=== PATIENT | female | born 1940 | race Caucasian/White ===

== ENCOUNTER 2017-06-01 10:18 | Outpatient (CLI) | payer MEDICARE | END 2017-06-01 10:19 | disposition EMS.NT | LOC: EMS 10:18 | PROVIDERS: ATTEND Surgery | DX: R55 Syncope and collapse (principal) ==

== ENCOUNTER 2020-12-01 12:06 | Outpatient (CLI) | payer MEDICARE ==
[2020-12-01 13:05] LABS: INR 3.5 (0.8-1.2); PT - PROTHROMBIN TIME 36.1 secs (9.9-12.6)
== END 2020-12-01 12:07 | disposition home or self-care (01) ==
LOC: LAB 12:06
PROVIDERS: ATTEND Internal Medicine Clinical Cardiac Electrophysiology
DX: I48.91 Unspecified atrial fibrillation (principal)
CPT/HCPCS: 36415; 85610

== ENCOUNTER 2020-12-03 19:05 | Outpatient (CLI) | payer MEDICARE | END 2020-12-03 19:06 | disposition EMS.NT | LOC: EMS 19:05 | DX: Z03.89 Encounter for observation for other suspected diseases and conditions ruled out (principal) ==

== ENCOUNTER 2020-12-06 13:56 | Outpatient (CLI) | payer MEDICARE ==
[2020-12-06 14:25] LABS: PT - PROTHROMBIN TIME 49.3 secs (9.9-12.6)
[2020-12-06 14:36] LABS: INR 4.9 (0.8-1.2)
== END 2020-12-06 13:57 | disposition home or self-care (01) ==
LOC: LAB 13:56
PROVIDERS: ATTEND Internal Medicine Clinical Cardiac Electrophysiology
DX: I48.91 Unspecified atrial fibrillation (principal)
CPT/HCPCS: 36415; 85610

== ENCOUNTER 2020-12-08 10:25 | Outpatient (CLI) | payer MEDICARE ==
[2020-12-08 10:46] LABS: INR 3.3 (0.8-1.2); PT - PROTHROMBIN TIME 34.4 secs (9.9-12.6)
== END 2020-12-08 10:26 | disposition home or self-care (01) ==
LOC: LAB 10:25
PROVIDERS: ATTEND Internal Medicine Clinical Cardiac Electrophysiology
DX: I48.91 Unspecified atrial fibrillation (principal)
CPT/HCPCS: 36415; 85610

== ENCOUNTER 2020-12-12 11:30 | Outpatient (CLI) | payer MEDICARE | END 2020-12-12 11:31 | disposition home or self-care (01) | LOC: LAB 11:30 | PROVIDERS: ATTEND Internal Medicine Clinical Cardiac Electrophysiology | DX: I48.91 Unspecified atrial fibrillation (principal) | CPT/HCPCS: 85610 ==

== ENCOUNTER 2020-12-18 10:37 | Outpatient (CLI) | payer MEDICARE ==
[2020-12-18 11:31] LABS: PT - PROTHROMBIN TIME 82.5 secs (9.9-12.6)
[2020-12-18 11:35] LABS: INR 8.4 (0.8-1.2)
== END 2020-12-18 10:38 | disposition home or self-care (01) ==
LOC: LAB 10:37
PROVIDERS: ATTEND Internal Medicine Clinical Cardiac Electrophysiology
DX: I48.91 Unspecified atrial fibrillation (principal)
CPT/HCPCS: 36415; 85610

== ENCOUNTER 2020-12-20 07:00 | Outpatient (CLI) | payer MEDICARE ==
[2020-12-20 09:23] LABS: INR 2.5 (0.8-1.2); PT - PROTHROMBIN TIME 26.4 secs (9.9-12.6)
== END 2020-12-20 23:59 | disposition home or self-care (01) ==
LOC: LAB 07:00
PROVIDERS: ATTEND Internal Medicine Clinical Cardiac Electrophysiology
DX: I48.91 Unspecified atrial fibrillation (principal)
CPT/HCPCS: 36415; 85610

== ENCOUNTER 2020-12-22 11:35 | Outpatient (CLI) | payer MEDICARE ==
[2020-12-22 12:04] LABS: BASOPHILS % (AUTO) 0.6 %; EOSINOPHILS # (AUTO) 0.1 10^3/uL (0.0-0.7); EOSINOPHILS % (AUTO) 1.2 %; HCT - HEMATOCRIT 28.9 % (37.0-47.0); HGB - HEMOGLOBIN 9.7 g/dL (12.0-16.0); LYMPHOCYTES # (AUTO) 0.6 10^3/uL (1.5-3.5); LYMPHOCYTES % (AUTO) 8.4 %; MEAN CORPUSCULAR HEMOGLOBIN 33.3 pg (27.0-31.0); MEAN CORPUSCULAR HGB CONC 33.6 g/dL (32.0-36.0); MEAN CORPUSCULAR VOLUME 99.3 fL (81.0-99.0); MEAN PLATELET VOLUME 8.8 fL (7.9-10.8); MONOCYTES # (AUTO) 0.7 10^3/uL (0.0-1.0); MONOCYTES % (AUTO) 9.2 %; NEUTROPHILS # (AUTO) 5.8 10^3/uL (1.5-6.6); NEUTROPHILS % (AUTO) 80.3 %; PLT - PLATELET COUNT 308 10^3/uL (130-450); RED BLOOD COUNT 2.91 10^6/uL (4.20-5.40); RED CELL DISTRIBUTION WIDTH 13.9 % (12.0-15.0); WHITE BLOOD COUNT 7.3 x10^3/uL (4.8-10.8)
[2020-12-22 12:12] LABS: CREATININE 1.6 mg/dL (0.4-1.0); INR 4.1 (0.8-1.2); PT - PROTHROMBIN TIME 41.5 secs (9.9-12.6)
== END 2020-12-22 11:36 | disposition home or self-care (01) ==
LOC: LAB 11:35
PROVIDERS: ATTEND Internal Medicine Clinical Cardiac Electrophysiology
DX: I48.21 Permanent atrial fibrillation (principal)
CPT/HCPCS: 36415; 82565; 85025; 85610

== ENCOUNTER 2021-02-17 19:12 | Emergency (ER) | payer MEDICARE ==
--- OUTSIDE RECORDS SUMMARY | 2021-02-17 19:19 | EXTERNAL MEDICAL SUMMARY RPT | Continuity of Care Document ---
:1940 Demographics Phone Unavailable Preferred Language Unknown Marital Status Unknown Oriental Orthodox Affiliation Unknown Race Unknown Ethnic Group Unknown Author Organization [place] Address [address] [phone] Phone Problems date description facility [id number] Shortness of Breath [facility] [id number] Fall [facility]
[2021-02-17 19:23] VITALS: BP 200/116
--- OUTSIDE RECORDS SUMMARY | 2021-02-17 19:46 | EXTERNAL MEDICAL SUMMARY RPT | Continuity of Care Document ---
:1940 Demographics Phone Unavailable Preferred Language Unknown Marital Status Unknown Yazdanism Affiliation Unknown Race Unknown Ethnic Group Unknown Author Organization [place] Address [address] [phone] Phone Problems date description facility [id number] Shortness of Breath [facility] [id number] Fall [facility]
[2021-02-17] MEDS ORDERED: OLANZapine ODT 5 MG TABLET TL ONE (19:50)
[2021-02-17 20:15] LABS: BASOPHILS % (AUTO) 0.8 %; EOSINOPHILS # (AUTO) 0.1 10^3/uL (0.0-0.7); EOSINOPHILS % (AUTO) 1.5 %; HCT - HEMATOCRIT 46.8 % (37.0-47.0); HGB - HEMOGLOBIN 15.7 g/dL (12.0-16.0); LYMPHOCYTES % (AUTO) 19.2 %; MEAN CORPUSCULAR HEMOGLOBIN 31.8 pg (27.0-31.0); MEAN CORPUSCULAR HGB CONC 33.5 g/dL (32.0-36.0); MEAN CORPUSCULAR VOLUME 94.7 fL (81.0-99.0); MEAN PLATELET VOLUME 9.4 fL (7.9-10.8); MONOCYTES # (AUTO) 0.5 10^3/uL (0.0-1.0); MONOCYTES % (AUTO) 8.5 %; NEUTROPHILS # (AUTO) 3.7 10^3/uL (1.5-6.6); NEUTROPHILS % (AUTO) 69.6 %; PLT - PLATELET COUNT 221 10^3/uL (130-450); RED BLOOD COUNT 4.94 10^6/uL (4.20-5.40); RED CELL DISTRIBUTION WIDTH 13.1 % (12.0-15.0); WHITE BLOOD COUNT 5.3 x10^3/uL (4.8-10.8)
--- NOTE | 2021-02-17 20:16 | ED Physician Documentation ---
History of Present Illness - Stated complaint Stated Complaint: ABNORMAL BEHAVIOR - Chief complaint Chief Complaint: Neuro - History obtained from History obtained from: Patient, Family - History of Present Illness Timing: Today Pain level max: 0 Pain level now: 0 - Additonal information Additional information: She has had a [id number] female with a history of Alzheimer's dementia presents to the emergency department by her for increasingly bizarre behavior over the past few days. He states that she has been crawling on the floor, trying to eat the remote control. He states that she recently had her Seroquel increased from 25 mg to 37.5 mg. She is not on any dementia medication. All injuring her left hand several weeks ago, no recent falls. No recent trauma. Nothing makes this better or worse. Review of Systems Unable to obtain: Dementia Constitutional: denies: Fever, Chills Cardiac: denies: Chest pain / pressure Respiratory: denies: Cough GI: denies: Vomiting, Diarrhea Musculoskeletal: denies: Neck pain, Back pain Neurologic: reports: Confused. denies: Headache, LOC PD PAST MEDICAL HISTORY - Past Medical History Neuro: Alzhiemer's, Dementia HEENT: Glaucoma - Past Surgical History Past Surgical History: Yes - Present Medications Home Medications: Ambulatory Orders Medication Instructions Recorded Confirmed Atorvastatin [Lipitor] 20 mg PO DAILY 04/09/14 02/17/21 Levothyroxine [Synthroid] 100 mcg PO DAILY 04/09/14 02/17/21 Losartan [Cozaar] 100 mg PO DAILY 04/09/14 02/17/21 Timolol 0.25% Ophth Drops 1 drops EACHEYE DAILY 04/09/14 02/17/21 [Timoptic 0.25% Ophth Drops] QUEtiapine [SEROquel] 37.5 mg PO DAILY 02/17/21 02/17/21 Warfarin [Coumadin] 2 mg PO DAILY 02/17/21 02/17/21 - Allergies Allergies/Adverse Reactions: Allergies Allergy/AdvReac Type Severity Reaction Status Date / Time Sulfa (Sulfonamide Allergy Cramps Verified 04/10/14 00:20 Antibiotics) - Social History Does the pt smoke?: No Smoking Status: Never smoker Does the pt drink ETOH?: No Does the pt have substance abuse?: No PD ED PE NORMAL - Vitals Vital signs reviewed: Yes - General General: No acute distress, Well developed/nourished, Other (alert, oriented to person only) - HEENT HEENT: Atraumatic, PERRL, Moist mucous membranes - Neck Neck: Supple, no meningeal sign - Cardiac Cardiac: RRR, Strong equal pulses - Respiratory Respiratory: No respiratory distress, Clear bilaterally - Abdomen Abdomen: Soft, Non tender, Non distended - Derm Derm: Warm and dry - Extremities Extremities: Other (mild swelling and bruising to the B hands, L>R. NVI. ) - Neuro Neuro: No motor deficit, No sensory deficit, Normal speech - Psych Psych: Normal mood, Normal affect Results - Vitals Vitals: Vital Signs - 24 hr 02/17/21 19:19 Temperature 36.5 C Heart Rate 101 H Respiratory 24 Rate Blood Pressure 200/116 H O2 Saturation 99 Oxygen O2 Source Room air - Labs Labs: Laboratory Tests 02/17/21 02/17/21 02/17/21 20:08 20:08 20:08 WBC 5.3 RBC 4.94 Hgb 15.7 Hct 46.8 MCV 94.7 MCH 31.8 H MCHC 33.5 RDW 13.1 Plt Count 221 MPV 9.4 Neut # (Auto) 3.7 Lymph # (Auto) 1.0 L [place] # (Auto) 0.5 Eos # (Auto) 0.1 Baso # (Auto) 0.0 Absolute Nucleated RBC 0.00 Nucleated RBC % 0.0 PT INR Sodium 140 Potassium 3.2 L Chloride 102 Carbon Dioxide 28 Anion Gap 10.0 BUN 39 H Creatinine 1.8 H Estimated GFR (MDRD) 27 L Glucose 122 H Calcium 9.3 Total Bilirubin 1.2 H AST 24 ALT 15 Alkaline Phosphatase 68 Total Protein 7.8 Albumin 4.8 Globulin 3.0 Albumin/Globulin Ratio 1.6 Lipase 59 H TSH 19.56 H Salicylates < 6.0 Acetaminophen < 10 L Ethyl Alcohol < 5.0 02/17/21 20:08 WBC RBC Hgb Hct MCV MCH MCHC RDW Plt Count MPV Neut # (Auto) Lymph # (Auto) [place] # (Auto) Eos # (Auto) Baso # (Auto) Absolute Nucleated RBC Nucleated RBC % PT 12.9 H INR 1.2 Sodium Potassium Chloride Carbon Dioxide Anion Gap BUN Creatinine Estimated GFR (MDRD) Glucose Calcium Total Bilirubin AST ALT Alkaline Phosphatase Total Protein Albumin Globulin Albumin/Globulin Ratio Lipase TSH Salicylates Acetaminophen Ethyl Alcohol PD MEDICAL DECISION MAKING - ED course Complexity details: reviewed results, considered differential, d/w family ED course: No significant lab abnormalities. While we are waiting a urine sample, the decided he did not want any further testing or to stay in the emergency department any longer and wanted to take her home. He will follow up with her doctor on Friday. I informed him that it could be dangerous to wait if she does have a urinary tract infection as she could become worse and even septic. He states he will return if she worsens. Signed out AMA. This document was made in part using voice recognition software. While efforts are made to proofread this document, sound alike and grammatical errors may occur. Departure - Departure Disposition: 07 Against Medical Advice Clinical Impression: Dementia Qualifiers: Dementia type: Alzheimer's Alzheimer's disease onset: unspecified onset Dementia behavioral disturbance: with behavioral disturbance Qualified Code(s): G30.9 - Alzheimer's disease, unspecified; F02.81 - Dementia in other diseases classified elsewhere with behavioral disturbance Condition: Stable
[2021-02-17] MEDS ORDERED: QUEtiapine 25 MG TABLET PO STA (20:28)
[2021-02-17 20:34] LABS: ACETAMINOPHEN < 10 ug/mL (10-30); ALBUMIN 4.8 g/dL (3.2-5.5); ALBUMIN/GLOBULIN RATIO 1.6 (1.0-2.2); ALKALINE PHOSPHATASE 68 IU/L (42-121); ALT ALANINE AMINOTRANSFERASE 15 IU/L (10-60); AST ASPARTATE AMINOTRANSFERASE 24 IU/L (10-42); BILIRUBIN,TOTAL 1.2 mg/dL (0.2-1.0); BUN - BLOOD UREA NITROGEN 39 mg/dL (6-20); CALCIUM 9.3 mg/dL (8.5-10.3); CARBON DIOXIDE - CO2 28 mmol/L (21-32); CHLORIDE 102 mmol/L (101-111); CREATININE 1.8 mg/dL (0.4-1.0); ETOH - ETHANOL < 5.0 mg/dL; GFR - MDRD 27 (>89); GLUCOSE 122 mg/dL (70-100); LIPASE 59 U/L (22-51); POTASSIUM 3.2 mmol/L (3.5-5.0); SALICYLATE < 6.0 mg/dL; SODIUM 140 mmol/L (135-145); TOTAL PROTEIN 7.8 g/dL (6.7-8.2)
[2021-02-17 21:01] LABS: INR 1.2 (0.8-1.2); PT - PROTHROMBIN TIME 12.9 secs (9.9-12.6)
== END 2021-02-17 21:48 | disposition left against medical advice (07) ==
LOC: ED 19:12
DX: Z53.29 Procedure and treatment not carried out because of patient's decision for other reasons (principal); G30.9 Alzheimer's disease, unspecified; F02.81 Dementia in other diseases classified elsewhere, unspecified severity, with behavioral disturbance
CPT/HCPCS: 36415; 80053; 80307; 83690; 84443; 85025; 85610; 99283; 99284; A9270; G0480; 80320; 80329

== ENCOUNTER 2021-02-18 10:54 | Outpatient (CLI) | payer MEDICARE | END 2021-02-18 10:55 | disposition critical access hospital (66) | LOC: EMS 10:54 | DX: R40.4 Transient alteration of awareness (principal) | CPT/HCPCS: A0425; A0429 ==

== ENCOUNTER 2021-02-18 11:05 | Emergency (ER) | payer MEDICARE ==
--- OUTSIDE RECORDS SUMMARY | 2021-02-18 11:14 | EXTERNAL MEDICAL SUMMARY RPT | Continuity of Care Document ---
:1940 Demographics Phone Unavailable Preferred Language Unknown Marital Status Unknown Taoist Affiliation Unknown Race Unknown Ethnic Group Unknown Author Organization [place] Address [address] [phone] Phone Problems date description facility [id number] Shortness of Breath [facility] [id number] Fall [facility]
--- NOTE | 2021-02-18 11:15 | ED Physician Documentation ---
PD HPI ALTERED MENTAL STATUS - Stated complaint Stated Complaint: CONFUSION - History obtained from History obtained from: Patient, EMS - History of Present Illness Timing - onset: How many days ago ( states the patient seems more agita david and confused. He been having agitation and had Seroquel dose increased from 25 to 37.5 mg. She is now somewhat confused. Has also been getting up to bathroom for urination with small output. also with some incontinence the past several days, new for her) Timing - details: Gradual onset Quality / character: Confused Associated symptoms: Urinary sx, Other (getting up to bathroom herself often and having some falls. She fell overnight and hurt shoulder, heard her fall and she was awake when got to her, so not apparent LOC.). No: Fever, Headache, Stiff neck, Dyspnea, Cough, NVD Contributing factors: Recent injury (fell during night with shoulder injury.). No: Anticoagulated (previously but off the coumadin for few months.), Diabetic, Recent illness Basline status: Disoriented, Walker Similar symptoms before: Has not had sx before Recently seen: Clinic, Emergency Dept (yesterday for the confusion after increased med dose. left with patient prior to getting urine sample for UA. Declined cath urine specimen.) Review of Systems Unable to obtain: Confused, Dementia, Other (info from .) Constitutional: denies: Fever Nose: denies: Congestion Cardiac: denies: Chest pain / pressure Respiratory: denies: Dyspnea, Cough GI: denies: Vomiting, Diarrhea : reports: Frequency. denies: Discharge Skin: denies: Rash, Abrasion (s), Laceration (s) Musculoskeletal: reports: Extremity pain (right shoulder this morning). denies: Neck pain, Back pain Neurologic: reports: Generalized weakness, Confused. 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 : Other HEENT: Glaucoma Derm: None - Past Surgical History Past Surgical History: Yes HEENT: Other - Present Medications Home Medications: Ambulatory Orders Medication Instructions Recorded Confirmed Atorvastatin [Lipitor] 20 mg PO DAILY 04/09/14 02/18/21 Levothyroxine [Synthroid] 100 mcg PO DAILY 04/09/14 02/18/21 Losartan [Cozaar] 100 mg PO DAILY 04/09/14 02/18/21 Timolol 0.25% Ophth Drops 1 drops EACHEYE DAILY 04/09/14 02/18/21 [Timoptic 0.25% Ophth Drops] Oxybutynin [Ditropan] 5 mg PO QPM 10 Days #10 tablet 02/18/21 QUEtiapine [SEROquel] 1 tab PO DAILY 02/18/21 02/18/21 cephALEXin [Keflex] 500 mg PO TID 5 Days #15 cap 02/18/21 - Allergies Allergies/Adverse Reactions: Allergies Allergy/AdvReac Type Severity Reaction Status Date / Time Sulfa (Sulfonamide Allergy Cramps Verified 02/18/21 11:13 Antibiotics) - Social History Does the pt smoke?: No Smoking Status: Never smoker Does the pt drink ETOH?: No Does the pt have substance abuse?: No - POLST Patient has POLST: No PD ED PE NORMAL - Vitals Vital signs reviewed: Yes - General General: Alert and oriented X 3, No acute distress, Well developed/nourished - HEENT HEENT: Atraumatic, Pharynx benign. No: Moist mucous membranes - Neck Neck: Supple, no meningeal sign, No adenopathy - Cardiac Cardiac: RRR, No murmur - Respiratory Respiratory: Clear bilaterally - Abdomen Abdomen: Soft, Non tender - Back Back: No spinal TTP - Derm Derm: Normal color, Warm and dry - Extremities Extremities: Other (right shoulder tender at distal clavicle. No gross deformity. ) - Neuro Neuro: Alert and oriented X 3, No motor deficit, Normal speech Results - Vitals Vitals: Vital Signs - 24 hr 02/18/21 02/18/21 02/18/21 11:09 11:21 11:32 Temperature 36.6 C Heart Rate 74 77 61 Respiratory 18 16 16 Rate Blood Pressure 154/111 H 141/92 H 134/98 H O2 Saturation 97 100 100 02/18/21 02/18/21 02/18/21 12:19 12:30 13:00 Temperature Heart Rate 60 62 67 Respiratory 14 14 12 Rate Blood Pressure 155/100 H 165/121 H 155/95 H O2 Saturation 100 100 02/18/21 02/18/21 13:30 15:01 Temperature Heart Rate 66 66 Respiratory 20 18 Rate Blood Pressure 170/153 H 175/84 H O2 Saturation 100 100 Oxygen O2 Source Room air - Labs Labs: Laboratory Tests 02/18/21 02/18/21 02/18/21 12:57 12:57 12:57 WBC 7.6 RBC 4.30 Hgb 13.8 Hct 41.0 MCV 95.3 MCH 32.1 H MCHC 33.7 RDW 13.2 Plt Count 181 MPV 9.8 Neut # (Auto) 6.3 Lymph # (Auto) 0.7 L [place] # (Auto) 0.6 Eos # (Auto) 0.0 Baso # (Auto) 0.0 Absolute Nucleated RBC 0.00 Nucleated RBC % 0.0 Sodium 139 Potassium 3.3 L Chloride 105 Carbon Dioxide 25 Anion Gap 9.0 BUN 29 H Creatinine 1.5 H Estimated GFR (MDRD) 33 L Glucose 104 H Calcium 8.5 Total Bilirubin 1.5 H AST 21 ALT 12 Alkaline Phosphatase 54 Total Protein 6.5 L Albumin 3.8 Globulin 2.7 Albumin/Globulin Ratio 1.4 Lipase 32 Free T4 1.28 Free T3 pg/mL 2.80 - Rads (name of study) head CT Radiology: Prelim report reviewed (no ICH, no acute process), See rad report chest xray Radiology: Prelim report reviewed (no infiltrates nor acute process), See rad report right shoulder Radiology: Prelim report reviewed (distal clavicle fracture. No dislocation. ), See rad report PD MEDICAL DECISION MAKING - ED course Complexity details: re-evaluated patient (answering questions. Seem calm and cooperative. Sitting up in bed. ), considered differential (the patient was answering questions okay. She did not want catheter for urine test. Did not wqnt to go to the bathroom. Had some mild incontinence. PureWick was placed to get some urine. ), d/w patient, d/w family () ED course: After awhile, the patient had not given urine sample. I talked with , who has feeling the patient has UTI. We shared decision to empirically treat for possible UTI rather than force catheter sample. He states she was doing better at the higher dose Seroquel 37.5 mg, though might be too sleepy. His concern was the patient getting up often to go to the bathroom, so wanted treatment of the dysuria. She is moving her arm fairly well, so will likely be more annoyed by sling than would be helpful. agreed. I offered to to have Social Work talk with them about temp placement/rehab or such, home health. He did not want the patient to be going to care facility; wanted to have her home. There did not seem to be admission criteria; no seeming septic. Departure - Departure Disposition: Home, Self Care Clinical Impression: Dysuria, Agitation Fall Qualifiers: Encounter type: initial encounter Qualified Code(s): W19.XXXA - Unspecified fall, initial encounter Clavicle fracture Qualifiers: Encounter type: initial encounter Clavicle location: lateral end Fracture type: closed Fracture alignment: nondisplaced Laterality: right Qualified Code(s): S42.034A - Nondisplaced fracture of lateral end of right clavicle, initial encounter for closed fracture Condition: Stable Record reviewed to determine appropriate education?: Yes Instructions: ED Fx Clavicle, ED Dysuria Uncertain Cause Follow-Up: Sylvia Rosales MD [Primary Care Provider] - Prescriptions: Oxybutynin [Ditropan] 5 mg PO QPM 10 Days #10 tablet cephALEXin [Keflex] 500 mg PO TID 5 Days #15 cap Comments: We can empirically treat for possible urinary tract infection. Take the antibiotics as directed. See if there is improvement over the next few days. If persistent troubles with urinating often, then add antispasmodic for bladder (ditropan). Continue your current medicines otherwise. Add Tylenol 500 mg 4 times a day for the shoulder pain. Activity of the shoulder as tolerated. Try to limit overhead reaching and lifting with the right arm to help with the clavicle healing. Discharge Date/Time: 02/18/21 15:32
[2021-02-18] MEDS ORDERED: SODIUM CHLORIDE 0.9% 1,000 ML IV STA (11:41)
--- NOTE | 2021-02-18 12:19 | CT Report ---
PROCEDURE: HEAD WO INDICATIONS: fall, struck head last night TECHNIQUE: Noncontrast 4.5 mm thick angled axial sections acquired from the foramen magnum to the vertex. For r adiation dose reduction, the following was used: automated exposure control, adjustment of mA and/or kV according to patient size. COMPARISON: None. FINDINGS: Image quality: Excellent. CSF spaces: The ventricles and extra-axial CSF spaces are mildly prominent consistent with cerebral a trophy. No focal extra-axial fluid collection. Brain: No midline shift. No intracranial masses or hemorrhage. There is diffuse periventricular an d deep white matter hypoattenuation. Peguero-white matter interface is normal. Vascular calcifications are noted in the proximal intracranial vasculature. Skull and face: Calvarium and visualized facial bones are intact, without suspicious lesions. Nonsp ecific diffuse soft tissue calcifications about the scalp. Sinuses: Visualized sinuses and mastoids are clear. IMPRESSION: Findings consistent with microvascular ischemic changes and cerebral volume loss without evidence of an acute intracranial abnormality. Reviewed by: Unruly Rainey DO on 02/18/2021 11:18 AM TOMASZ Approved by: Unruly Rainey DO on 02/18/2021 11:18 AM [facility]OM[facility] Station ID: [id number]
--- NOTE | 2021-02-18 12:33 | XRAY Report ---
PROCEDURE: Chest 1 View X-Ray INDICATIONS: dyspnea/cough TECHNIQUE: One view of the chest was acquired. COMPARISON: None available at time of dictation. FINDINGS: Surgical changes and devices: Overlying EKG wires.. Lungs and pleura: There is subtle interstitial prominence and prominence of the pulmonary vasculature . No focal consolidation. No pneumothorax. No large joint pleural effusion. Mediastinum: Mediastinal contours appear normal. Heart size is enlarged. Vascular calcifications wit hin the aortic arch. Bones and chest wall: Mildly displaced distal right clavicle fracture. No additional acute osseous ab normality. Mild dextrocurvature of the thoracic spine. IMPRESSION: Cardiomegaly with mild prominence of the interstitium and vascularity suggestive of mild pulmonary ed esteban. Mildly displaced distal right clavicle fracture. Reviewed by: Unruly Rainey DO on 02/18/2021 11:32 AM TOMASZ Approved by: Unruly Rainey DO on 02/18/2021 11:32 AM [facility]OMAS[facility] Station ID: [id number]
--- NOTE | 2021-02-18 12:35 | XRAY Report ---
PROCEDURE: Shoulder 3 View RT INDICATIONS: fall TECHNIQUE: 3 views of the shoulder were acquired. COMPARISON: None. FINDINGS: Bones: There is a displaced distal clavicle fracture. There is approximately half shaft width of infe rior displacement of the distal clavicle. There is maintenance of the acromioclavicular interval. No shoulder dislocation. Visualized ribs appear intact. Soft tissues: No suspicious soft tissue calcifications. IMPRESSION: Displaced distal clavicle fracture. Reviewed by: Unruly Rainey DO on 02/18/2021 11:34 AM T[facility] Approved by: Unruly Rainey DO on 02/18/2021 11:34 AM TOMAS[facility] Station ID: [id number]
[2021-02-18 13:05] LABS: BASOPHILS % (AUTO) 0.4 %; EOSINOPHILS % (AUTO) 0.3 %; HGB - HEMOGLOBIN 13.8 g/dL (12.0-16.0); LYMPHOCYTES # (AUTO) 0.7 10^3/uL (1.5-3.5); LYMPHOCYTES % (AUTO) 8.9 %; MEAN CORPUSCULAR HEMOGLOBIN 32.1 pg (27.0-31.0); MEAN CORPUSCULAR HGB CONC 33.7 g/dL (32.0-36.0); MEAN CORPUSCULAR VOLUME 95.3 fL (81.0-99.0); MEAN PLATELET VOLUME 9.8 fL (7.9-10.8); MONOCYTES # (AUTO) 0.6 10^3/uL (0.0-1.0); NEUTROPHILS # (AUTO) 6.3 10^3/uL (1.5-6.6); NEUTROPHILS % (AUTO) 82.1 %; PLT - PLATELET COUNT 181 10^3/uL (130-450); RED CELL DISTRIBUTION WIDTH 13.2 % (12.0-15.0); WHITE BLOOD COUNT 7.6 x10^3/uL (4.8-10.8)
[2021-02-18 13:24] LABS: ALBUMIN 3.8 g/dL (3.2-5.5); ALBUMIN/GLOBULIN RATIO 1.4 (1.0-2.2); BILIRUBIN,TOTAL 1.5 mg/dL (0.2-1.0); CALCIUM 8.5 mg/dL (8.5-10.3); CREATININE 1.5 mg/dL (0.4-1.0); POTASSIUM 3.3 mmol/L (3.5-5.0); TOTAL PROTEIN 6.5 g/dL (6.7-8.2)
[2021-02-18 13:37] LABS: FREE T3 2.8 pg/mL (2.5-3.9)
[2021-02-18 13:39] LABS: FREE T4 (FREE THYROXINE) 1.28 ng/dL (0.58-1.64)
[2021-02-18] MEDS ORDERED: ACETAMINOPHEN 325 MG TABLET PO STA (14:07)
[2021-02-18] MEDS ORDERED: cephALEXin 250 MG CAPSULE PO STA (14:07)
[2021-02-18 15:01] VITALS: BP 175/84
== END 2021-02-18 15:32 | disposition home or self-care (01) ==
LOC: EDBD → EDUNIT# → ED 11:05
DX: S42.031A Displaced fracture of lateral end of right clavicle, initial encounter for closed fracture (principal); W19.XXXA Unspecified fall, initial encounter; Y92.009 Unspecified place in unspecified non-institutional (private) residence as the place of occurrence of the external cause; R30.0 Dysuria; G30.9 Alzheimer's disease, unspecified; F02.80 Dementia in other diseases classified elsewhere, unspecified severity, without behavioral disturbance, psychotic disturbance, mood disturbance, and anxiety; I10 Essential (primary) hypertension
CPT/HCPCS: 36415; 80053; 83690; 84439; 84481; 85025; 99284

== ENCOUNTER 2021-06-23 08:53 | Outpatient (CLI) | payer MEDICARE | END 2021-06-23 08:54 | disposition critical access hospital (66) | LOC: EMS 08:53 | DX: T69.9XXA Effect of reduced temperature, unspecified, initial encounter (principal); X31.XXXA Exposure to excessive natural cold, initial encounter | CPT/HCPCS: A0425; A0429 ==

== ENCOUNTER 2021-06-23 09:07 | Emergency (ER) | payer MEDICARE ==
[2021-06-23] MEDS ORDERED: SODIUM CHLORIDE 0.9% 1,000 ML IV STA (09:15)
--- NOTE | 2021-06-23 09:16 | ED Physician Documentation ---
History of Present Illness - Stated complaint Stated Complaint: EXPOSURE - History obtained from History obtained from: Patient, Family (), EMS - History of Present Illness Timing: Today, Last night (patient with dementia and has had some wandering around house. Patient got out of house and did not find her last evening. Police were looking for her. She was noted by passersby this morning in a ditch, wet and cold. Alert and conversant. Temp 97 per EMS. No noted injuries. To ED for eval.) Review of Systems Unable to obtain: Dementia, Other ( gave info as well.) Constitutional: denies: Fever Cardiac: denies: Chest pain / pressure Respiratory: denies: Dyspnea, Cough GI: denies: Abdominal Pain, Vomiting Skin: denies: Abrasion (s), Laceration (s) Neurologic: reports: Confused (similar to baseline dementia per .). 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 HEENT: Glaucoma Derm: None - Past Surgical History Past Surgical History: Yes HEENT: Other - Present Medications Home Medications: Ambulatory Orders Medication Instructions Recorded Confirmed Atorvastatin [Lipitor] 20 mg PO DAILY 04/09/14 06/23/21 Levothyroxine [Synthroid] 100 mcg PO DAILY 04/09/14 06/23/21 Losartan [Cozaar] 100 mg PO DAILY 04/09/14 06/23/21 Timolol 0.25% Ophth Drops 1 drops EACHEYE DAILY 04/09/14 06/23/21 [Timoptic 0.25% Ophth Drops] QUEtiapine [SEROquel] 1 tab PO DAILY 02/18/21 06/23/21 - Allergies Allergies/Adverse Reactions: Allergies Allergy/AdvReac Type Severity Reaction Status Date / Time Sulfa (Sulfonamide Allergy Cramps Verified 06/23/21 09:22 Antibiotics) - Social History Does the pt smoke?: No Smoking Status: Never smoker Does the pt drink ETOH?: No Does the pt have substance abuse?: No - POLST Patient has POLST: No PD ED PE NORMAL - Vitals Vital signs reviewed: Yes - General General: Alert and oriented X 3, No acute distress (damp hair and clothing. Alert and interacts. Does not remember events of the night. No noted tenderness of scalp. ), Well developed/nourished - HEENT HEENT: Atraumatic - Neck Neck: Supple, no meningeal sign, No bony TTP, No adenopathy - Cardiac Cardiac: No murmur. No: RRR (irregular but rate controlled. ) - Respiratory Respiratory: Clear bilaterally - Back Back: No spinal TTP - Derm Derm: Normal color, Warm and dry - Extremities Extremities: No tenderness to palpate, Normal ROM s pain - Neuro Neuro: No motor deficit, No sensory deficit Eye Opening: Spontaneous Motor: Obeys Commands Verbal: Oriented GCS Score: 15 Results - Vitals Vitals: Vital Signs - 24 hr 06/23/21 06/23/21 09:10 11:19 Temperature 36.4 C L Heart Rate 74 76 Respiratory 16 17 Rate Blood Pressure 159/87 H 122/86 H O2 Saturation 99 100 Oxygen O2 Source Room air - Labs Labs: Laboratory Tests 06/23/21 06/23/21 09:43 09:43 WBC 9.6 RBC 4.34 Hgb 14.5 Hct 41.3 MCV 95.2 MCH 33.4 H MCHC 35.1 RDW 13.3 Plt Count 181 MPV 9.3 Neut # (Auto) 8.6 H Lymph # (Auto) 0.5 L [place] # (Auto) 0.5 Eos # (Auto) 0.0 Baso # (Auto) 0.0 Absolute Nucleated RBC 0.00 Nucleated RBC % 0.0 Sodium 142 Potassium 3.9 Chloride 105 Carbon Dioxide 24 Anion Gap 13.0 BUN 39 H Creatinine 1.4 H Estimated GFR (MDRD) 36 L Glucose 133 H Calcium 9.2 Total Bilirubin 1.8 H AST 36 ALT 27 Alkaline Phosphatase 63 Total Protein 7.1 Albumin 4.3 Globulin 2.8 Albumin/Globulin Ratio 1.5 Lipase 30 - Rads (name of study) head CT Radiology: Prelim report reviewed (no acute process), See rad report PD MEDICAL DECISION MAKING - ED course Complexity details: reviewed results, re-evaluated patient (warmer and good color after dry clothing and fluids. No pains/complaints. ), considered differential (was out all night in wet/cold. Core temp is okay. Skin is cold. Can check sugar and lytes. Unknown if any fall/head injury, so got head CT, which is okay.) Departure - Departure Disposition: 01 Home, Self Care Clinical Impression: Wandering behavior due to dementia Exposure to environmental cold Qualifiers: Encounter type: initial encounter Qualified Code(s): T69.9XXA - Effect of reduced temperature, unspecified, initial encounter Condition: Stable Record reviewed to determine appropriate education?: Yes Follow-Up: Sylvia Rosales MD [Primary Care Provider] - Comments: Your basic blood tests and vital signs are normal here. Your head CT appears normal as well so no obvious significant injury. Continue usual medications. Hydrate well today. Discharge Date/Time: 06/23/21 11:19
[2021-06-23 09:50] LABS: BASOPHILS % (AUTO) 0.3 %; EOSINOPHILS % (AUTO) 0.1 %; HCT - HEMATOCRIT 41.3 % (37.0-47.0); HGB - HEMOGLOBIN 14.5 g/dL (12.0-16.0); LYMPHOCYTES # (AUTO) 0.5 10^3/uL (1.5-3.5); LYMPHOCYTES % (AUTO) 5.1 %; MEAN CORPUSCULAR HEMOGLOBIN 33.4 pg (27.0-31.0); MEAN CORPUSCULAR HGB CONC 35.1 g/dL (32.0-36.0); MEAN CORPUSCULAR VOLUME 95.2 fL (81.0-99.0); MEAN PLATELET VOLUME 9.3 fL (7.9-10.8); MONOCYTES # (AUTO) 0.5 10^3/uL (0.0-1.0); MONOCYTES % (AUTO) 4.8 %; NEUTROPHILS # (AUTO) 8.6 10^3/uL (1.5-6.6); NEUTROPHILS % (AUTO) 89.4 %; PLT - PLATELET COUNT 181 10^3/uL (130-450); RED BLOOD COUNT 4.34 10^6/uL (4.20-5.40); RED CELL DISTRIBUTION WIDTH 13.3 % (12.0-15.0); WHITE BLOOD COUNT 9.6 x10^3/uL (4.8-10.8)
[2021-06-23 10:02] LABS: ALBUMIN 4.3 g/dL (3.2-5.5); ALBUMIN/GLOBULIN RATIO 1.5 (1.0-2.2); BILIRUBIN,TOTAL 1.8 mg/dL (0.2-1.0); CALCIUM 9.2 mg/dL (8.5-10.3); CREATININE 1.4 mg/dL (0.4-1.0); POTASSIUM 3.9 mmol/L (3.5-5.0); TOTAL PROTEIN 7.1 g/dL (6.7-8.2)
--- NOTE | 2021-06-23 10:58 | CT Report ---
PROCEDURE: HEAD WO INDICATIONS: headache; possible fall TECHNIQUE: Noncontrast 4.5 mm thick angled axial sections acquired from the foramen magnum to the vertex. For r adiation dose reduction, the following was used: automated exposure control, adjustment of mA and/or kV according to patient size. COMPARISON: 02/18/2021 FINDINGS: Image quality: There is streak artifact seen through the skull base. CSF spaces: Basal cisterns are patent. No extra-axial fluid collections. Ventricles are normal in size and shape. Brain: No midline shift. No intracranial masses or hemorrhage. Peguero-white matter interface is norm al. Age-appropriate brain parenchymal volume loss and chronic small vessel ischemic change can be se en. Skull and face: Calvarium and visualized facial bones are intact, without suspicious lesions. Sinuses: Visualized sinuses and mastoids are clear. IMPRESSION: No intracranial hemorrhage is seen. No significant intracranial abnormality is seen. Age-appropriate brain parenchymal volume loss and chronic small vessel ischemic change can be seen. Note: Case discussed by telephone with Dr. Florentino at 9:14 AM on 06/23/2021. Reviewed by: Anthony Borrero MD on 06/23/2021 9:56 AM [facility]OM[facility] Approved by: Anthony Borrero MD on 06/23/2021 9:56 AM TOMAS[facility] Station ID: [id number]
[2021-06-23 11:21] VITALS: BP 122/86
== END 2021-06-23 11:19 | disposition home or self-care (01) ==
LOC: EDUNIT# → ED 09:07
DX: Z77.128 Contact with and (suspected) exposure to other hazards in the physical environment (principal); G30.9 Alzheimer's disease, unspecified; F02.81 Dementia in other diseases classified elsewhere, unspecified severity, with behavioral disturbance; Z91.83 Wandering in diseases classified elsewhere
CPT/HCPCS: 36415; 80053; 83690; 85025; 96360; 99283

== ENCOUNTER 2021-12-17 19:42 | Outpatient (CLI) | payer MEDICARE | END 2021-12-17 19:43 | disposition EMS.NT | LOC: EMS 19:42 | DX: G30.9 Alzheimer's disease, unspecified (principal) ==

== ENCOUNTER 2022-08-14 15:31 | Outpatient (CLI) | payer MEDICARE | END 2022-08-14 15:32 | disposition critical access hospital (66) | LOC: EMS 15:31 | DX: R41.0 Disorientation, unspecified (principal); Z74.8 Other problems related to care provider dependency; F03.90 Unspecified dementia, unspecified severity, without behavioral disturbance, psychotic disturbance, mood disturbance, and anxiety | CPT/HCPCS: A0425; A0429 ==

== ENCOUNTER 2022-08-14 15:47 | Emergency (ER) | payer MEDICARE ==
[2022-08-14 16:04] VITALS: BP 152/100
[2022-08-14 16:28] LABS: BILIRUBIN,URINE NEGATIVE (NEGATIVE); GLUCOSE, URINE (UA) NEGATIVE (NEGATIVE); KETONES,URINE (UA) NEGATIVE (NEGATIVE); LEUKOCYTE ESTERASE, URINE NEGATIVE (NEGATIVE); MUDS CUTOFF CONCENTRATIONS CUTOFF CONC BELOW:; NITRITE,URINE NEGATIVE (NEGATIVE); OCCULT BLOOD,URINE SMALL (NEGATIVE); PROTEIN,URINE 100 mg/dL (NEGATIVE); UROBILINOGEN,URINE 0.2 (NORMAL) E.U./dL (NORMAL)
[2022-08-14 16:29] LABS: CLARITY,URINE HAZY (CLEAR)
[2022-08-14 16:36] LABS: BACTERIA,URINE Rare /HPF (None Seen); SQUAMOUS EPITHELIAL CELL,UR RARE Squamous (<= Few); WBC,URINE 0-3 /HPF (0-5)
[2022-08-14 16:37] LABS: BASOPHILS % (AUTO) 0.8 %; EOSINOPHILS # (AUTO) 0.2 10^3/uL (0.0-0.7); EOSINOPHILS % (AUTO) 3.2 %; HCT - HEMATOCRIT 41.4 % (37.0-47.0); HGB - HEMOGLOBIN 13.9 g/dL (12.0-16.0); LYMPHOCYTES % (AUTO) 18.6 %; MEAN CORPUSCULAR HEMOGLOBIN 31.4 pg (27.0-31.0); MEAN CORPUSCULAR HGB CONC 33.6 g/dL (32.0-36.0); MEAN CORPUSCULAR VOLUME 93.5 fL (81.0-99.0); MEAN PLATELET VOLUME 9.6 fL (7.9-10.8); MONOCYTES # (AUTO) 0.5 10^3/uL (0.0-1.0); MONOCYTES % (AUTO) 10.1 %; NEUTROPHILS # (AUTO) 3.5 10^3/uL (1.5-6.6); NEUTROPHILS % (AUTO) 67.1 %; PLT - PLATELET COUNT 204 10^3/uL (130-450); RED BLOOD COUNT 4.43 10^6/uL (4.20-5.40); RED CELL DISTRIBUTION WIDTH 13.6 % (12.0-15.0); WHITE BLOOD COUNT 5.3 x10^3/uL (4.8-10.8)
[2022-08-14 16:47] LABS: AMPHETAMINE SCREEN,URINE NEGATIVE (NEGATIVE); BARBITURATE SCREEN,UR NEGATIVE (NEGATIVE); BENZODIAZEPINES SCREEN, URINE NEGATIVE (NEGATIVE); COCAINE SCREEN URINE NEGATIVE (NEGATIVE); METHADONE SCREEN, URINE NEGATIVE (NEGATIVE); METHAMPHETAMINES SCREEN, URINE NEGATIVE (NEGATIVE); OPIATE SCREEN, URINE NEGATIVE (NEGATIVE); OXYCODONE SCREEN, URINE NEGATIVE (NEGATIVE); PROPOXYPHENE SCREEN, URINE NEGATIVE (NEGATIVE); THC CANNABINOID SCREEN, URINE NEGATIVE (NEGATIVE); TRICYCLIC ANTIDEPRESSANT,URINE POSITIVE (NEGATIVE)
[2022-08-14 16:49] LABS: ACETAMINOPHEN < 10 ug/mL (10-30); ALBUMIN 4.3 g/dL (3.2-5.5); ALBUMIN/GLOBULIN RATIO 1.2 (1.0-2.2); ALKALINE PHOSPHATASE 78 IU/L (42-121); ALT ALANINE AMINOTRANSFERASE 15 IU/L (10-60); AST ASPARTATE AMINOTRANSFERASE 23 IU/L (10-42); BILIRUBIN,TOTAL 0.8 mg/dL (0.2-1.0); BUN - BLOOD UREA NITROGEN 37 mg/dL (6-20); CALCIUM 9.1 mg/dL (8.5-10.3); CARBON DIOXIDE - CO2 26 mmol/L (21-32); CHLORIDE 105 mmol/L (101-111); CREATININE 1.4 mg/dL (0.4-1.0); ETOH - ETHANOL < 5.0 mg/dL; GFR - MDRD 36 (>89); GLUCOSE 105 mg/dL (70-100); LIPASE 53 U/L (22-51); POTASSIUM 3.6 mmol/L (3.5-5.0); SALICYLATE < 6.0 mg/dL; SODIUM 138 mmol/L (135-145); TOTAL PROTEIN 7.9 g/dL (6.7-8.2)
--- NOTE | 2022-08-14 17:32 | ED Physician Documentation ---
History of Present Illness - Stated complaint Stated Complaint: FTT - Chief complaint Chief Complaint: General - History obtained from History obtained from: Patient, Family, EMS - Additonal information Additional information: Patient is an 82-year-old female with a history of dementia presenting for evaluation of Worsening dementia. Per the patient's she has episodes where she wants to leave the house he finds this difficult to get her to stay in the house. The patient's is getting tired of being patient's primary caregiver 28/04 and took her to [facility] to try and get her admitted to the memory care unit. They did not have an appointment or any prior information on the patient. They did have an open bed available in the memory care unit but patient would not even allow them to assess her and was getting agitated so they called 911 to see if patient could be evaluated here. Patient's denies any concerns for safety for him tonight or for the patient. He states that this has been an ongoing issue and that he is just getting tired of being at the caregiver and needs more help. Patient's PCP is through [facility]. Review of Systems Unable to obtain: Dementia PD PAST MEDICAL HISTORY - Past Medical History Cardiovascular: Hypertension, High cholesterol Respiratory: None Neuro: Alzhiemer's, Dementia Endocrine/Autoimmune: HyPOthyroidism GI: None HOG TRADER: None : Other HEENT: Glaucoma Derm: None - Past Surgical History Past Surgical History: Yes HEENT: Other - Present Medications Home Medications: Ambulatory Orders Medication Instructions Recorded Confirmed Atorvastatin [Lipitor] 20 mg PO DAILY 04/09/14 06/23/21 Levothyroxine [Synthroid] 100 mcg PO DAILY 04/09/14 06/23/21 Losartan [Cozaar] 100 mg PO DAILY 04/09/14 06/23/21 Timolol 0.25% Ophth Drops 1 drops EACHEYE DAILY 04/09/14 06/23/21 [Timoptic 0.25% Ophth Drops] QUEtiapine [SEROquel] 1 tab PO DAILY 02/18/21 06/23/21 - Allergies Allergies/Adverse Reactions: Allergies Allergy/AdvReac Type Severity Reaction Status Date / Time Sulfa (Sulfonamide Allergy Cramps Verified 06/23/21 09:22 Antibiotics) - Social History Does the pt smoke?: No Smoking Status: Never smoker Does the pt drink ETOH?: No Does the pt have substance abuse?: No - POLST Patient has POLST: No PD ED PE NORMAL - General General: No acute distress, Well developed/nourished, Other (Alert and oriented to person and place) - HEENT HEENT: Atraumatic, PERRL, EOMI - Neck Neck: Supple, no meningeal sign - Cardiac Cardiac: RRR - Respiratory Respiratory: No respiratory distress, Clear bilaterally - Abdomen Abdomen: Soft, Non tender - Derm Derm: Warm and dry - Extremities Extremities: No edema - Neuro 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 No: Alert and oriented X 3 (Alert and oriented to baseline per ) Results - Vitals Vitals: Vital Signs - 24 hr 08/14/22 15:57 Temperature 37.0 C Heart Rate 62 Respiratory 19 Rate Blood Pressure 152/100 H O2 Saturation 100 Oxygen O2 Source Room air - EKG (time done) 1639 Rate: Rate (enter#) (59) Rhythm: Atrial flutter Ischemia: No: ST elevation c/w ischemia - Labs Labs: Laboratory Tests 08/14/22 08/14/22 08/14/22 16:20 16:22 16:30 WBC 5.3 RBC 4.43 Hgb 13.9 Hct 41.4 MCV 93.5 MCH 31.4 H MCHC 33.6 RDW 13.6 Plt Count 204 MPV 9.6 Neut # (Auto) 3.5 Lymph # (Auto) 1.0 L [place] # (Auto) 0.5 Eos # (Auto) 0.2 Baso # (Auto) 0.0 Absolute Nucleated RBC 0.00 Nucleated RBC % 0.0 Sodium Potassium Chloride Carbon Dioxide Anion Gap BUN Creatinine Estimated GFR (MDRD) Glucose Calcium Total Bilirubin AST ALT Alkaline Phosphatase Total Protein Albumin Globulin Albumin/Globulin Ratio Lipase TSH Urine Color YELLOW Urine Clarity HAZY Urine pH 6.0 Ur Specific [place] >=1.030 H Urine Protein 100 H Urine Glucose (UA) NEGATIVE Urine Ketones NEGATIVE Urine Occult Blood SMALL H Urine Nitrite NEGATIVE Urine Bilirubin NEGATIVE Urine Urobilinogen 0.2 (NORMAL) Ur Leukocyte Esterase NEGATIVE Urine RBC 6-10 H Urine WBC 0-3 Ur Squamous Epith Cells RARE Squamous Urine Bacteria Rare Ur Microscopic Review INDICATED Urine Culture Comments NOT INDICATED Salicylates Urine Opiates Screen NEGATIVE Ur Oxycodone Screen NEGATIVE Urine Methadone Screen NEGATIVE Ur Propoxyphene Screen NEGATIVE Acetaminophen Ur Barbiturates Screen NEGATIVE Ur Tricyclics Screen POSITIVE H Ur Phencyclidine Scrn NEGATIVE Ur Amphetamine Screen NEGATIVE U Methamphetamines Scrn NEGATIVE U Benzodiazepines Scrn NEGATIVE Urine Cocaine Screen NEGATIVE U Cannabinoids Screen NEGATIVE Ethyl Alcohol SARS-CoV-2 (PCR) NOT DETECTED 08/14/22 08/14/22 16:30 16:30 WBC RBC Hgb Hct MCV MCH MCHC RDW Plt Count MPV Neut # (Auto) Lymph # (Auto) [place] # (Auto) Eos # (Auto) Baso # (Auto) Absolute Nucleated RBC Nucleated RBC % Sodium 138 Potassium 3.6 Chloride 105 Carbon Dioxide 26 Anion Gap 7.0 BUN 37 H Creatinine 1.4 H Estimated GFR (MDRD) 36 L Glucose 105 H Calcium 9.1 Total Bilirubin 0.8 AST 23 ALT 15 Alkaline Phosphatase 78 Total Protein 7.9 Albumin 4.3 Globulin 3.6 Albumin/Globulin Ratio 1.2 Lipase 53 H TSH 0.80 Urine Color Urine Clarity Urine pH Ur Specific [place] Urine Protein Urine Glucose (UA) Urine Ketones Urine Occult Blood Urine Nitrite Urine Bilirubin Urine Urobilinogen Ur Leukocyte Esterase Urine RBC Urine WBC Ur Squamous Epith Cells Urine Bacteria Ur Microscopic Review Urine Culture Comments Salicylates < 6.0 Urine Opiates Screen Ur Oxycodone Screen Urine Methadone Screen Ur Propoxyphene Screen Acetaminophen < 10 L Ur Barbiturates Screen Ur Tricyclics Screen Ur Phencyclidine Scrn Ur Amphetamine Screen U Methamphetamines Scrn U Benzodiazepines Scrn Urine Cocaine Screen U Cannabinoids Screen Ethyl Alcohol < 5.0 SARS-CoV-2 (PCR) PD MEDICAL DECISION MAKING - ED course Complexity details: reviewed results, re-evaluated patient, d/w patient, d/w family ED course: Patient presenting for evaluation with history of dementia. Per report from EMS and , he is becoming increasingly tired with being patient's primary caregiver and would like her in a memory care facility but she was not willing to go today. Labs were checked and appear to be at her baseline. Patient does have a history of atrial fibrillation As noted through care everywhere and was previously on Coumadin. is not familiar with her diagnosis of atrial fibrillation but states that she was on Coumadin for heart problem but they took her off of this and she is no longer on any blood thinners. Patient was medically cleared and we did offer to keep patient in the emergency department to have social work see her in the morning to determine if they are able to get her to [facility]. She has been cooperative here and has not required any additional medications for sedation or behavioral issues.However after speaking to the patient would like to take her home. He feels safe in doing so. He feels he has resources for the time being with being able to contact [facility] and also reaching back out to [facility]. He is aware to call 911 with any safety concerns or to return to the ER. Departure - Departure Disposition: 01 Home, Self Care Clinical Impression: Dementia Condition: Stable Instructions: ED Dementia Caregiver Support Comments: Please call Nayeli's doctors at [facility] tomorrow for help with her medications. I would also call back to [facility] and discuss options for Nayeli in their Memory Care Unit. If at anytime you have concerns about your or Nayeli's safety, please call 911. Discharge Date/Time: 08/14/22 17:37
== END 2022-08-14 17:37 | disposition home or self-care (01) ==
LOC: EDUNIT# → ED 15:47
DX: G30.9 Alzheimer's disease, unspecified (principal); F02.811 Dementia in other diseases classified elsewhere, unspecified severity, with agitation; I48.92 Unspecified atrial flutter; I44.30 Unspecified atrioventricular block; I10 Essential (primary) hypertension; E03.9 Hypothyroidism, unspecified; Z79.899 Other long term (current) drug therapy
CPT/HCPCS: 36415; 80053; 80306; 80307; 81001; 83690; 84443; 85025; 87635; 93005; 99281; 99283; G0480; 80320; 80329; 81003; 87086

== ENCOUNTER 2023-08-10 01:27 | Observation (INO) | payer MEDICARE ==
--- NOTE | 2023-08-10 01:31 | ED Physician Documentation ---
PD HPI DYSPNEA - Stated complaint Stated Complaint: SOA - History obtained from History obtained from: Patient, Family ( of patient) - Additional information Additional information: HPI is from patient's ; patient has dementia and is thus not a reliable historian. Patient arrives by private vehicle having been driven to the ED by her . Patient complains of shortness of breath, unclear as to timing of onset. Patient says that she has felt short of breath since earlier this evening. Patient's says that they sleep in separate bedrooms and thus he also does not know the time of onset. However, the says that during the day and in the evening, she was not having any shortness of breath. The patient has no history of pulmonary problems/diagnoses, no history of CHF/pulmonary edema. Patient required my immediate attention shortly after arrival due to 75% pulse ox noted in triage on room air. 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 : Other HEENT: Glaucoma Derm: None - Past Surgical History Past Surgical History: Yes HEENT: Other - Present Medications Home Medications: Ambulatory Orders Medication Instructions Recorded Confirmed Atorvastatin [Lipitor] 20 mg PO DAILY 04/09/14 08/10/23 Brimonidine 0.2% Ophth Drops 75 drops EACHEYE DAILY 08/10/23 08/10/23 [Alphagan P 0.2% Ophth Drops] Latanoprost 0.005% Ophth Drops 1 drops OPTH QPM 08/10/23 08/10/23 [Xalatan Ophth Drops] Levothyroxine Sodium [Synthroid] 112 mcg PO QDAC 08/10/23 08/10/23 Losartan Potassium [Cozaar] 100 mg PO DAILY 08/10/23 08/10/23 Quetiapine Fumarate [Seroquel] 50 mg PO BID 08/10/23 08/10/23 Timolol 0.5% Ophth Drops [Timoptic 75 drops EACHEYE DAILY 08/10/23 08/10/23 0.5% Ophth Drops] amLODIPine [Norvasc] 2.5 mg ORAL DAILY 08/10/23 08/10/23 - Allergies Allergies/Adverse Reactions: Allergies Allergy/AdvReac Type Severity Reaction Status Date / Time Sulfa (Sulfonamide Allergy Cramps Verified 08/10/23 01:37 PDT Antibiotics) - Social History Does the pt smoke?: No Smoking Status: Never smoker Does the pt drink ETOH?: No Does the pt have substance abuse?: No - POLST Patient has POLST: No PD ED PE NORMAL - Vitals Vital signs reviewed: Yes - General General: Well developed/nourished, Other (awake, alert, oriented to self) - Neck Neck: Supple, no meningeal sign - Abdomen Abdomen: Soft, Non tender - Derm Derm: Normal color, Warm and dry PD ED PE EXPANDED - General General: In distress (moderate respiratory distress) - Cardiac Cardiac: Tachy, Regular Rhythm - Respiratory Respiratory: Distress, Labored, Rales - Extremities Extremities: Pedal edema bilateral (1+ BLE pitting edema) Results - Vitals Vitals: Vital Signs - 24 hr 08/10/23 08/10/23 08/10/23 01:28 PDT 01:30 PDT 01:32 PDT Temperature 36.1 C L Heart Rate 81 89 108 H Respiratory 15 36 H Rate Blood Pressure 145/89 H 167/102 H O2 Saturation 100 75 L If not protocol : Oxygen Flow, liters/minute 08/10/23 08/10/23 08/10/23 01:06 PST 02:00 02:30 Temperature Heart Rate 89 79 78 Respiratory 25 H 18 16 Rate Blood Pressure 145/89 H 115/80 98/72 O2 Saturation 100 100 100 If not protocol : Oxygen Flow, liters/minute 08/10/23 08/10/23 08/10/23 03:00 03:30 03:45 Temperature Heart Rate 76 71 75 Respiratory 21 23 Rate Blood Pressure 114/78 98/58 L O2 Saturation 100 100 If not protocol : Oxygen Flow, liters/minute 08/10/23 08/10/23 08/10/23 04:00 04:05 04:10 Temperature Heart Rate 79 Respiratory 19 Rate Blood Pressure O2 Saturation 90 L 81 L 94 If not protocol 4 : Oxygen Flow, liters/minute 08/10/23 08/10/23 08/10/23 04:17 04:30 05:00 Temperature Heart Rate 73 73 70 Respiratory 17 18 15 Rate Blood Pressure 122/86 H 114/78 117/76 O2 Saturation 96 96 96 If not protocol 4 4 2 : Oxygen Flow, liters/minute 08/10/23 08/10/23 08/10/23 05:30 06:00 06:30 Temperature Heart Rate 80 70 83 Respiratory 20 12 16 Rate Blood Pressure 129/86 H 113/78 121/88 H O2 Saturation 98 94 98 If not protocol 2 2 2 : Oxygen Flow, liters/minute 08/10/23 07:00 Temperature Heart Rate 77 Respiratory 16 Rate Blood Pressure 130/86 H O2 Saturation 95 If not protocol 2 : Oxygen Flow, liters/minute Oxygen O2 Source Nasal cannula Oxygen Flow Rate 15 - EKG (time done) No standard instances EKG releavant findings:: EKG personally interpreted by author of this note. Relevant findings are: Rate: Rate (enter#) (92) Rhythm: NSR, LAE [place]: Normal Intervals: Prolonged [place] QRS: LVH Ischemia: Normal ST segments - Labs Labs: Laboratory Tests 08/10/23 08/10/23 08/10/23 01:35 PST 01:35 PST 01:35 PST WBC 6.6 RBC 4.18 L Hgb 13.6 Hct 40.3 MCV 96.4 MCH 32.5 H MCHC 33.7 RDW 13.3 Plt Count 219 MPV 9.9 Neut # (Auto) 4.0 Lymph # (Auto) 1.6 [place] # (Auto) 0.7 Eos # (Auto) 0.3 Baso # (Auto) 0.1 Absolute Nucleated RBC 0.00 Nucleated RBC % 0.0 Sodium 137 Potassium 3.5 Chloride 105 Carbon Dioxide 24 Anion Gap 8.0 BUN 32 H Creatinine 1.3 Estimated GFR (MDRD) 39 L Glucose 114 H Lactic Acid Calcium 9.3 Total Bilirubin 1.0 AST 22 ALT 13 Alkaline Phosphatase 59 Troponin I High Sens 61.0 H* B-Natriuretic Peptide 525 H Total Protein 7.5 Albumin 4.5 Globulin 3.0 Albumin/Globulin Ratio 1.5 Lipase 66 Urine Color Urine Clarity Urine pH Ur Specific [place] Urine Protein Urine Glucose (UA) Urine Ketones Urine Occult Blood Urine Nitrite Urine Bilirubin Urine Urobilinogen Ur Leukocyte Esterase Urine RBC Urine WBC Ur Squamous Epith Cells Urine Bacteria Ur Microscopic Review Urine Culture Comments Nasal Adenovirus (PCR) Nasal B. parapertussis DNA (PCR) Nasal Coronavir 229E PCR Nasal Coronavir HKU1 PCR Nasal Coronavir NL63 PCR Nasal Coronavir OC43 PCR Nasal Enterovir/Rhinovir PCR Nasal Influenza B PCR Nasal Influenza A PCR Nasal Parainfluen 1 PCR Nasal Parainfluen 2 PCR Nasal Parainfluen 3 PCR Nasal Parainfluen 4 PCR Nasal RSV (PCR) Nasal B.pertussis DNA PCR Nasal C.pneumoniae (PCR) Duc Human Metapneumo PCR Nasal M.pneumoniae (PCR) Nasal SARS-CoV-2 (PCR) 08/10/23 08/10/23 08/10/23 01:47 PST 01:54 PST 01:55 PST WBC RBC Hgb Hct MCV MCH MCHC RDW Plt Count MPV Neut # (Auto) Lymph # (Auto) [place] # (Auto) Eos # (Auto) Baso # (Auto) Absolute Nucleated RBC Nucleated RBC % Sodium Potassium Chloride Carbon Dioxide Anion Gap BUN Creatinine Estimated GFR (MDRD) Glucose Lactic Acid 1.1 Calcium Total Bilirubin AST ALT Alkaline Phosphatase Troponin I High Sens B-Natriuretic Peptide Total Protein Albumin Globulin Albumin/Globulin Ratio Lipase Urine Color YELLOW Urine Clarity CLEAR Urine pH 6.5 Ur Specific [place] 1.015 Urine Protein >=300 H Urine Glucose (UA) NEGATIVE Urine Ketones NEGATIVE Urine Occult Blood TRACE-INTA Urine Nitrite NEGATIVE Urine Bilirubin NEGATIVE Urine Urobilinogen 0.2 (NORMAL) Ur Leukocyte Esterase NEGATIVE Urine RBC 0-5 Urine WBC 0-3 Ur Squamous Epith Cells FEW Squamous Urine Bacteria Rare Ur Microscopic Review INDICATED Urine Culture Comments NOT INDICATED Nasal Adenovirus (PCR) NOT DETECTED Nasal B. parapertussis DNA (PCR) NOT DETECTED Nasal Coronavir 229E PCR NOT DETECTED Nasal Coronavir HKU1 PCR NOT DETECTED Nasal Coronavir NL63 PCR NOT DETECTED Nasal Coronavir OC43 PCR NOT DETECTED Nasal Enterovir/Rhinovir PCR NOT DETECTED Nasal Influenza B PCR NOT DETECTED Nasal Influenza A PCR NOT DETECTED Nasal Parainfluen 1 PCR NOT DETECTED Nasal Parainfluen 2 PCR NOT DETECTED Nasal Parainfluen 3 PCR NOT DETECTED Nasal Parainfluen 4 PCR NOT DETECTED Nasal RSV (PCR) NOT DETECTED Nasal B.pertussis DNA PCR NOT DETECTED Nasal C.pneumoniae (PCR) NOT DETECTED Duc Human Metapneumo PCR NOT DETECTED Nasal M.pneumoniae (PCR) NOT DETECTED Nasal SARS-CoV-2 (PCR) NOT DETECTED 08/10/23 02:44 WBC RBC Hgb Hct MCV MCH MCHC RDW Plt Count MPV Neut # (Auto) Lymph # (Auto) [place] # (Auto) Eos # (Auto) Baso # (Auto) Absolute Nucleated RBC Nucleated RBC % Sodium Potassium Chloride Carbon Dioxide Anion Gap BUN Creatinine Estimated GFR (MDRD) Glucose Lactic Acid Calcium Total Bilirubin AST ALT Alkaline Phosphatase Troponin I High Sens 57.4 H* B-Natriuretic Peptide Total Protein Albumin Globulin Albumin/Globulin Ratio Lipase Urine Color Urine Clarity Urine pH Ur Specific [place] Urine Protein Urine Glucose (UA) Urine Ketones Urine Occult Blood Urine Nitrite Urine Bilirubin Urine Urobilinogen Ur Leukocyte Esterase Urine RBC Urine WBC Ur Squamous Epith Cells Urine Bacteria Ur Microscopic Review Urine Culture Comments Nasal Adenovirus (PCR) Nasal B. parapertussis DNA (PCR) Nasal Coronavir 229E PCR Nasal Coronavir HKU1 PCR Nasal Coronavir NL63 PCR Nasal Coronavir OC43 PCR Nasal Enterovir/Rhinovir PCR Nasal Influenza B PCR Nasal Influenza A PCR Nasal Parainfluen 1 PCR Nasal Parainfluen 2 PCR Nasal Parainfluen 3 PCR Nasal Parainfluen 4 PCR Nasal RSV (PCR) Nasal B.pertussis DNA PCR Nasal C.pneumoniae (PCR) Duc Human Metapneumo PCR Nasal M.pneumoniae (PCR) Nasal SARS-CoV-2 (PCR) - Rads (name of study) chest xray Relevant Findings:: Prelim report reviewed, See rad report PD Medical Decision Making - ED course Complexity details: reviewed results, re-evaluated patient, considered differential, d/w patient, d/w family ED course: Patient presents with significant hypoxia, chest x-ray suggestive of pulmonary edema which is of new onset for this patient. She is given 60 mg Lasix IV, 1 inch Nitropaste applied to chest wall (4 reduction of preload). She is placed on BiPAP. With these interventions, she gradually but steadily exhibited improvement in pulse ox and decreasing respiratory distress. She was eventually able to be weaned off of the BiPAP. After being taken off BiPAP, she was trialed on room air and pulse ox was 90% on room air. However, simply standing and ambulating a few steps resulted in rapid desaturation to 81%. She was thus placed back on 4 liters [place] oxygen. At this point, plan is to admit the patient to continue monitoring and treatment and further testing as needed. Note that during ED stay, she is also given intravenous Rocephin and Zithromax to cover possible pneumonia. Telehealth consult requested at 4:22 AM. At 4:49 AM, telehealth contacted the ED HUMAN RESOURCE ASSISTANT and informed her that they were too busy to discuss this case and that the patient would have to wait until day shift for consideration of admission. Shortly after 7 AM, I discussed this case with Dr. Domínguez who accepts the patient to [facility]. Departure - Departure Disposition: 66 [facility] DC/Xfer Clinical Impression: Congestive heart failure Qualifiers: Heart failure type: unspecified Heart failure chronicity: acute Qualified Code(s): I50.9 - Heart failure, unspecified Condition: Good Forms: PCP List
[2023-08-10] MEDS ORDERED: FUROSEMIDE 40 MG/4 ML VIAL IVP STA (01:39)
[2023-08-10] MEDS ORDERED: NITROGLYCERIN 2% PASTE TOP STA (01:40)
[2023-08-10 01:47] LABS: ALBUMIN 4.5 g/dL (3.2-5.5); ALBUMIN/GLOBULIN RATIO 1.5 (1.0-2.2); CALCIUM 9.3 mg/dL (8.5-10.3); CREATININE 1.3 mg/dL (0.6-1.3); POTASSIUM 3.5 mmol/L (3.5-4.5); TOTAL PROTEIN 7.5 g/dL (6.4-8.9)
[2023-08-10 01:50] LABS: BASOPHILS # (AUTO) 0.1 10^3/uL (0.0-0.1); BASOPHILS % (AUTO) 0.8 %; EOSINOPHILS # (AUTO) 0.3 10^3/uL (0.0-0.7); EOSINOPHILS % (AUTO) 4.4 %; HCT - HEMATOCRIT 40.3 % (37.0-47.0); HGB - HEMOGLOBIN 13.6 g/dL (12.0-16.0); LYMPHOCYTES # (AUTO) 1.6 10^3/uL (1.5-3.5); LYMPHOCYTES % (AUTO) 23.6 %; MEAN CORPUSCULAR HEMOGLOBIN 32.5 pg (27.0-31.0); MEAN CORPUSCULAR HGB CONC 33.7 g/dL (32.0-36.0); MEAN CORPUSCULAR VOLUME 96.4 fL (81.0-99.0); MEAN PLATELET VOLUME 9.9 fL (7.9-10.8); MONOCYTES # (AUTO) 0.7 10^3/uL (0.0-1.0); MONOCYTES % (AUTO) 10.8 %; NEUTROPHILS % (AUTO) 59.9 %; PLT - PLATELET COUNT 219 10^3/uL (130-450); RED BLOOD COUNT 4.18 10^6/uL (4.20-5.40); RED CELL DISTRIBUTION WIDTH 13.3 % (12.0-15.0); WHITE BLOOD COUNT 6.6 x10^3/uL (4.8-10.8)
[2023-08-10 02:00] LABS: B. PARAPERTUSSIS- RESP PCR PAN NOT DETECTED; B. PERTUSSIS- RESP PCR PANEL NOT DETECTED; C. PNEUMONIAE- RESP PCR PANEL NOT DETECTED; CORONAVIRUS 229E-RESP PCR NOT DETECTED; CORONAVIRUS HKU1-RESP PCR NOT DETECTED; CORONAVIRUS NL63-RESP PCR NOT DETECTED; CORONAVIRUS OC43-RESP PCR NOT DETECTED; HUMAN METAPNEUMOVIRUS NOT DETECTED; INFLUENZA A- RESP PCR PANEL NOT DETECTED; INFLUENZA B - RESP PCR PANEL NOT DETECTED; M. PNEUMONIAE- RESP PCR PANEL NOT DETECTED; PARAINFLUENZA VIRUS 1 NOT DETECTED; PARAINFLUENZA VIRUS 2 NOT DETECTED; PARAINFLUENZA VIRUS 3 NOT DETECTED; PARAINFLUENZA VIRUS 4 NOT DETECTED; RHINOVIRUS/ENTEROVIRUS NOT DETECTED; RSV- RESP PCR PANEL NOT DETECTED; SARS-CoV-2 -RESP PCR PANEL NOT DETECTED
[2023-08-10] MEDS ORDERED: cefTRIAXone 1 GM VIAL IVP STA (02:08)
[2023-08-10] MEDS ORDERED: AZITHROMYCIN INJ 500 MG in SODIUM CHLORIDE 0.9% 250 ML IV STA (02:08)
[2023-08-10 02:14] LABS: BILIRUBIN,URINE NEGATIVE (NEGATIVE); GLUCOSE, URINE (UA) NEGATIVE (NEGATIVE); KETONES,URINE (UA) NEGATIVE (NEGATIVE); LEUKOCYTE ESTERASE, URINE NEGATIVE (NEGATIVE); NITRITE,URINE NEGATIVE (NEGATIVE); OCCULT BLOOD,URINE TRACE-INTA (NEGATIVE); PH,URINE 6.5 PH (5.0-7.5); PROTEIN,URINE >=300 mg/dL (NEGATIVE); UROBILINOGEN,URINE 0.2 (NORMAL) E.U./dL (NORMAL)
[2023-08-10 02:29] LABS: CLARITY,URINE CLEAR (CLEAR)
[2023-08-10 02:30] LABS: BACTERIA,URINE Rare /HPF (None Seen); RBC,URINE 0-5 /HPF (0-5); SQUAMOUS EPITHELIAL CELL,UR FEW Squamous (<= Few); WBC,URINE 0-3 /HPF (0-5)
[2023-08-10] MEDS ORDERED: ACETAMINOPHEN 325 MG TABLET PO PRN (07:25)
[2023-08-10] MEDS ORDERED: ONDANSETRON 4 MG/2 ML VIAL IVP PRN (07:25)
[2023-08-10] MEDS ORDERED: SODIUM CHLORIDE FLUSH 0.9% 10 ML SYRINGE IVP PRN (07:25)
--- NOTE | 2023-08-10 09:42 | XRAY Report ---
PROCEDURE: Chest 1 View X-Ray INDICATIONS: dyspnea TECHNIQUE: One view of the chest was acquired. COMPARISON: 02/18/2021 FINDINGS: Surgical changes and devices: None. Lungs and pleura: Low lung volumes can be seen, causing a crowded appearance to the lung markings. M oderate to severe interstitial infiltrates are seen on both sides. Mediastinum: The aorta is prominent and tortuous. The cardiac contours are mildly enlarged. There is opacification seen of the mitral valve annulus. Bones and chest wall: No suspicious bony lesions. There is a remote distal right clavicle fracture. Age-appropriate degenerative changes are seen. Overlying soft tissues appear unremarkable. IMPRESSION: Abnormal interstitial infiltrates are seen on both sides. Given the mild cardiomegaly, CHF with pulmo nary edema is suspected. However, differential diagnosis includes atypical infiltrate, including, COV ID pneumonia. Additional findings: Stable, remote right distal clavicle fracture Note: No significant discrepancy from the preliminary report. Reviewed by: Anthony Borrero MD on 08/10/2023 8:41 AM [place] Approved by: Anthony Borrero MD on 08/10/2023 8:41 AM [facility] Station ID: [id number]
--- NOTE | 2023-08-10 10:18 | PHARMACY PROGRESS NOTE ---
- Best Possible Medication History Admit Date and Time: 08/10/23 0725 Processed by: Pharmacy Medication History completed: Yes Patient Interview: Completed Secondary Source(s): Written medication list, Insurance records As the person ultimately responsible for medication therapy, providers are able to order a medication from an existing home medication list in [facility] via the "Reconcile Routine" prior to Confirmation of that medication by technical support associate. Such practice is discouraged except when the physician, in their clinical judgment, deems that a medical need exists for a medication without regard to previous use.
[2023-08-10] MEDS: ENOXAPARIN 40 MG/0.4 ML SYRINGE SUBQ SCH (10:38)
[2023-08-10] MEDS: SODIUM CHLORIDE FLUSH 0.9% 10 ML SYRINGE IVP SCH ×2 (10:39→17:27)
--- NOTE | 2023-08-10 12:22 | PROVIDER PROGRESS NOTE ---
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 Severely dilated left atrium. Dilated left atrial appendage. Severely dilated right atrium. Normal aortic root diameter with mural atherosclerosis and very tortuous ascending aorta. Small LV cavity size with severe concentric LVH. Normal LV contractility, LVEF 55-60%. Grade III diastolic dysfunction. RV size upper limits of normal, normal wall thickness and normal RV function. Severe mitral annular calcification. Severely thickened mitral leaflets with r estricted mobility, and moderately calcified chordae. Doppler shows severe mitral stenosis and mild mitral regurg. Aortic bobo is tri- leaflet with thickened and severely calcfied leaflets which have restricted mobility. Moderate-severe aortic stenosis. Tricuspid leaflets structurally normal. Severe tricuspid regurg. Could not calculate PA pressure accurately. Pulmonic valve not well seen and not interrogated by Doppler. No pericardia effusion. Summary: Severe bi-atrial enlargement and dilated VICTORINO. Tortuous aorta with calcified aortic neri. Severe LVH, normal LVEF 55-60%, and severe diastolic dysfunction. RV size upper limits of normal with normal RV function. Moder-severe , severe MS, mild MR, and severe TR. No prior Echo available for comparison.
--- NOTE | 2023-08-10 13:11 | HISTORY & PHYSICAL EXAMINATION ---
Chief Complaint - Chief Complaint Chief Complaint: Shortness of breath History of Present Illness - Admitted From Admitted From:: ED - History Obtained From Records Reviewed: Yes History obtained from: ED; pt's Exam Limitations: Pt has severe dementia and is poor historian - History of Present Illness HPI Comment/Other: Mrs. Baron is a 83 y/o F, c/o dyspnea, hx significant for HTN, hyperlipidemia, dementia, and glaucoma. No history of pulmonary problems/diagnoses, no CHF/pulmonary edema, no O2 or DME at home. Pt lives at home w/ her and sleep on separate floors of their house. At approximately 0100 this morning, heard commotion in pt's room downstairs. He found her very short of breath and drove her to ED as he felt it faster than calling 911. In ED, she has significant hypoxia at 75%; CXR suggestive of pulmonary edema, which is new for this patient. She received 60 mg Lasix IV, 1 inch Nitropaste to chest wall (preload reduction), and placed on BiPAP. She improved, taken off BiPAP, and ambulatory oximetry test was performed; pt became profoundly hypoxic w/ a sat of 81% then placed on 4 Lpm via NC. Pt also received empiric ceftriaxone and azithromycin for suspected pneumonia via CXR. Pt admitted to [facility] for further workup of hypoxia secondary to acute respiratory failure. On admission, pt is A/O x 1 and further history obtained from pt's bedside. He reports pt's dyspnea has been intermittently present for the past "few months" and seems exacerbated w/ exertion. They walk about 1 mile daily and pt is active around the house: washing dishes, ironing, vacuuming, etc. The pt sleeps elevated w/ pillow support, but her SOB has not previously occurred at night. 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 An Echo was scheduled w/ that service however, pt became agitated during the exam and left. Pt was reportedly unhappy w/ the cardiology provider and no further follow-up was continued. When asked about pt's wishes for resuscitation, states they have a DNR document at home. 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 - Substance History Use: Uses substance without health or social issues: NONE - POLST Patient has POLST: No POLST Status: DNR (Per , they have a DNR document at home) Meds/Allgy - Home Medications Home Medications: Ambulatory Orders Medication Instructions Recorded Confirmed Atorvastatin [Lipitor] 20 mg PO DAILY 04/09/14 08/10/23 Brimonidine 0.2% Ophth Drops 1 drops EACHEYE DAILY 08/10/23 08/10/23 [Alphagan P 0.2% Ophth Drops] Latanoprost 0.005% Ophth Drops 1 drops EACHEYE QPM 08/10/23 08/10/23 [Xalatan Ophth Drops] Levothyroxine Sodium [Synthroid] 112 mcg PO QDAC 08/10/23 08/10/23 Losartan Potassium [Cozaar] 100 mg PO DAILY 08/10/23 08/10/23 Quetiapine Fumarate [Seroquel] 50 mg PO BID 08/10/23 08/10/23 Timolol 0.5% Ophth Drops [Timoptic 1 drops EACHEYE DAILY 08/10/23 08/10/23 0.5% Ophth Drops] amLODIPine [Norvasc] 2.5 mg ORAL DAILY 08/10/23 08/10/23 - Allergies Allergies/Adverse Reactions: Allergies Allergy/AdvReac Type Severity Reaction Status Date / Time Sulfa (Sulfonamide Allergy Cramps Verified 08/10/23 01:37 PDT Antibiotics) Review of Systems - Cardiovascular Cariovascular: reports: Edema (Per pt), Exertional dyspnea (Per ), Orthopnea (Per ) - All Other Systems All Other Systems: reports: Reviewed and negative (Pt denies all complaints, d/t dementia pt is unreliable) Exam - Vital Signs Reviewed Vital Signs: Yes Vital Signs: Vital Signs x48h Temp Pulse Pulse Resp BP BP Pulse Ox 08/10/23 09:22 36.8 C 73 16 133/73 H 97 08/10/23 09:20 08/10/23 08:30 68 99 08/10/23 08:00 75 18 115/79 98 08/10/23 07:30 77 15 112/86 H 98 08/10/23 07:00 77 16 130/86 H 95 08/10/23 06:30 83 16 121/88 H 98 08/10/23 06:00 70 12 113/78 94 08/10/23 05:30 80 20 129/86 H 98 08/10/23 05:00 70 15 117/76 96 O2 Flow Rate 08/10/23 09:22 08/10/23 09:20 2 08/10/23 08:30 2 08/10/23 08:00 08/10/23 07:30 2 08/10/23 07:00 2 08/10/23 06:30 2 08/10/23 06:00 2 08/10/23 05:30 2 08/10/23 05:00 2 - Physical Exam General Appearance: positive: No acute distress, Alert Eyes Bilateral: positive: Normal inspection ENT: positive: No signs of dehydration Neck: positive: Nml inspection Respiratory: positive: Chest non-tender, Rhonchi (Crackles heard bilaterally in bases) Cardiovascular: positive: Systolic murmur (3/6, crescendo-decrescendo, heart best at LUSB) Peripheral Pulses: positive: 2+ Abdomen: positive: Non-tender, Nml bowel sounds, No distention Skin: positive: Color nml, No rash, Warm, Dry Extremities: positive: Non-tender, Nml appearance, No pedal edema Neurologic/Psychiatric: positive: Motor nml, Disoriented to place, Disoriented to time Sepsis Event Note (H) - Evaluation Current Stage of Sepsis: Ruled out Conclusion/Plan - Problem List (1) Acute respiratory failure with hypoxia Conclusion/Plan: No known respiratory hx, home oxygen use, or smoking history. CXR shows cardiomegaly and bilateral interstitial infiltrates. Pt admitted w/ O2 sats of 81% on 4 Lpm NC; when examined on admission, she is 97% sat on 2 Lpm NC. Pt to continue BID IV Lasix. Pt will be trialed off supplemental oxygen and monitored for hypoxia. (2) Flash pulmonary edema Conclusion/Plan: Pt's reports intermittent episodes of SOB w/ exertion that resolved with rest. reports pt was not dyspneic leading up until their bedtime in the evening of 08/09. The severity and rapid onset correlate with flash pulmonary edema and pt to receive BID IV Lasix until her lungs are clear. Will monitor her BMP and Mg daily and replenish electrolytes as needed. (3) New onset of congestive heart failure Conclusion/Plan: EKG shows LVH. CXR shows cardiomegaly and bilateral interstitial infiltrates. Echo today shows a normal EF of 55-60%, severe diastolic dysfunction, along with Moder-severe , severe MS, mild MR, and severe TR. BID Lasix IV to continue and diurese pt. Start beta paola therapy. Ordered low sodium diet. BMP and Mg followed daily. (4) Aortic stenosis Conclusion/Plan: reports pt has a history of a murmur that has always been present, however no Echo records were available for reference. 12/09, systolic, crescendo- decrescendo murmur appreciated on exam. Echo performed by Dr. Domínguez shows moder-severe , severe MS, mild MR, and severe TR. Continue lasix, add beta paola to improve diastolic function. Discontinue amlodipine and losartan d/t fixed afterload in a patient w/ aortic stenosis. (5) Hypertension Conclusion/Plan: History for pt. She is to discontinue amlodipine and losartan d/t fixed afterl oad. Will titrate beta paola and lasix for BP control. (6) Acute angle-closure glaucoma Conclusion/Plan: History for patient. She is to continue her home eye drops for treatment. (7) Dementia with behavioral disturbance Conclusion/Plan: History for patient. reports pt has sporadic hallucinations and typical ly sundown's in the evening. Her dementia is severe, she is A/O x 1 and agitates easily. She is to continue her BID PO seroquel as scheduled at home. - Lab Results Lab results reviewed: Yes Fish Bones: 08/10/23 01:35 PST 08/10/23 01:35 PST - Diagnostic Imaging Results Diagnostic Imaging Results: positive: Final report reviewed (CXR - pulmonary edema) - EKG Results EKG Interpreted Independently: Yes EKG Comparison: No prior EKG EKG Findings: Rate: Rate (92) Rhythm: NSR, LAE [place]: Normal Intervals: Prolonged ME QRS: LVH Ischemia: Normal ST segments - Other Other Results/Comments: Attestation: The patient is expected to be hospitalized for greater than 2 midnights and is expected to be discharged or transferred to another facility within 96 hours: Yes
[2023-08-10] MEDS ORDERED: FUROSEMIDE 40 MG/4 ML VIAL IVP SCH (14:00)
[2023-08-10] MEDS: BRIMONIDINE 0.2% OPHTH DROPS 5 ML EACHEYE SCH (14:16)
[2023-08-10] MEDS: TIMOLOL 0.5% OPHTH DROPS EACHEYE SCH (14:16)
[2023-08-10] MEDS ORDERED: QUEtiapine 25 MG TABLET PO SCH ×2 (17:18→21:00)
[2023-08-10] MEDS: QUEtiapine 25 MG TABLET PO SCH (17:27)
[2023-08-10] MEDS ORDERED: QUEtiapine 25 MG TABLET ONE (17:34)
[2023-08-10] MEDS ORDERED: ASPIRIN EC 325 MG TABLET PO PRN (18:07)
[2023-08-10] MEDS ORDERED: LATANOPROST 0.005% OPHTH DROPS EACHEYE SCH (21:00)
[2023-08-10] MEDS ORDERED: ATORVASTATIN 10 MG TABLET PO SCH (21:00)
[2023-08-11] MEDS ORDERED: HALOPERIDOL 5 MG/ML VIAL IM ONE (03:22)
--- NOTE | 2023-08-11 03:27 | PROVIDER PROGRESS NOTE ---
Social Media Sr Strategy Manager Note - Social Media Sr Strategy Manager Note Social Media Sr Strategy Manager Note: Hospitalist Cross Cover Note Pt is agitated, confused, combative. Had witnessed fall (slid to the floor) earlier in the night. Noted hx dementia. Currently refusing nursing care, requiring 4 point soft restraints for safety. Face to face evaluation via video call with RN at bedside. Haldol IM ordered. Pt pulled IV needs to be replaced. Continue to monitor closely.
[2023-08-11 05:13] LABS: BASOPHILS % (AUTO) 0.8 %; EOSINOPHILS # (AUTO) 0.1 10^3/uL (0.0-0.7); EOSINOPHILS % (AUTO) 2.2 %; HCT - HEMATOCRIT 37.9 % (37.0-47.0); HGB - HEMOGLOBIN 13.1 g/dL (12.0-16.0); LYMPHOCYTES # (AUTO) 0.8 10^3/uL (1.5-3.5); LYMPHOCYTES % (AUTO) 15.4 %; MEAN CORPUSCULAR HEMOGLOBIN 32.8 pg (27.0-31.0); MEAN CORPUSCULAR HGB CONC 34.6 g/dL (32.0-36.0); MEAN PLATELET VOLUME 10.1 fL (7.9-10.8); MONOCYTES # (AUTO) 0.5 10^3/uL (0.0-1.0); MONOCYTES % (AUTO) 10.4 %; NEUTROPHILS # (AUTO) 3.6 10^3/uL (1.5-6.6); PLT - PLATELET COUNT 198 10^3/uL (130-450); RED BLOOD COUNT 3.99 10^6/uL (4.20-5.40); RED CELL DISTRIBUTION WIDTH 13.1 % (12.0-15.0)
[2023-08-11 05:28] LABS: CREATININE 1.5 mg/dL (0.6-1.3); PHOSPHORUS 2.7 mg/dL (2.5-5.0); POTASSIUM 3.1 mmol/L (3.5-4.5)
[2023-08-11 05:45] LABS: THYROID STIMULATING HORMONE 4.54 uIU/mL (0.34-5.60)
[2023-08-11] MEDS: SODIUM CHLORIDE FLUSH 0.9% 10 ML SYRINGE IVP SCH ×3 (06:17→09:22)
[2023-08-11 06:53] LABS: MAGNESIUM 1.6 mg/dL (1.7-2.3)
[2023-08-11] MEDS ORDERED: LEVOTHYROXINE 112 MCG TABLET PO SCH (07:00)
--- NOTE | 2023-08-11 07:45 | Discharge Plan ---
Discharge Plan Problem Reviewed?: Yes Disposition: Home, Self Care Condition: Poor Prescriptions: Furosemide [Lasix] 20 mg PO DAILY #30 tablet Potassium Chloride [Micro-K] 10 meq PO 0800 #30 cap Metoprolol Succinate [Toprol Xl] 12.5 mg PO BID #30 tab Diet: Low Sodium Activity Restrictions: Activity as Tolerated Shower Restrictions: No Driving Restrictions: Yes Assistance Devices: Walker, Cane Weight Bearing: Full Weight Instruction Topics: Heart Failure, Heart Valve Stenosis, Heart Failure Diet Changes Health Concerns: The patient was hospitalized to treat fluid in the lungs which caused her to have severe shortness of breath and low oxygen levels. We found the cause to be congestive heart failure (CHF). The cause of the CHF was found to be from her heart murmur (the aortic valve and mitral valve do not open adequately and are causing backup of fluid into her lungs). The patient should now be on different medications to treat both her heart and her high blood pressure. Nayeli should no longer be taking Losartan and Amlodipine. New medications called Toprol and Furosemide and Potassium replacement have been prescribed. The new prescriptions were electronically sent to the [facility] pharmacy in [place]. Refills need to come from her Primary Care Provider, and those refills can go through the [facility] pharmacy in [place]. Please follow the new list of medications and put aside the old Losartan and Amlodipine pill bottles. Her diet should be a low salt diet which will decrease fluid retention in the lungs. The patient should see her primary care provider in the next 5 to 10 days for hospital follow-up visit. It would be advisable that the patient see a Medicaid Billing Clerk for the diseased valves and the CHF. Plan of Treatment: As above. Care Goals: Improvement in her symptoms is the goal. As you both get older, you should have a plan for where Nayeli would live and be taken care of when she needs more help. Assessment: These instructions are provided for you both as a reminder. No Smoking: If you smoke, Please STOP! Call for help. Follow-up with: Sylvia Rosales MD [Primary Care Provider] -
--- NOTE | 2023-08-11 07:46 | DISCHARGE SUMMARY ---
Discharge Summary Admit Date: 08/10/23 Discharge Date: 08/11/23 Discharging Provider: Annalise Domínguez MD Primary Care Provider: Sylvia Rosales MD Code Status: Do Not Attempt Resuscitation Condition at Discharge: Fair Discharge Disposition: 01 Home, Self Care - HPI History of Present Illness: Mrs. Baron is a 83 y/o F, c/o dyspnea, hx significant for HTN, hyperlipidemia, dementia, and glaucoma. No history of pulmonary problems/diagnoses, no CHF/pulmo nary edema, no O2 or DME at home. Pt lives at home w/ her and sleep on separate floors of their house. At approximately 0100 this morning, heard commotion in pt's room downstairs. He found her very short of breath and drove her to ED as he felt it faster than calling 911. In ED, she has significant hypoxia at 75%; CXR suggestive of pulmonary edema, which is new for this patient. She received 60 mg Lasix IV, 1 inch Nitropaste to chest wall (preload reduction), and placed on BiPAP. She improved, taken off BiPAP, and ambulatory oximetry test was performed; pt became profoundly hypoxic w/ a sat of 81% then placed on 4 Lpm via NC. Pt also received empiric ceftriaxone and azithromycin for suspected pneumonia via CXR. Pt admitted to [facility] for further workup of hypoxia secondar y to acute respiratory failure. On admission, pt is A/O x 1 and further history obtained from pt's bedside. He reports pt's dyspnea has been intermittently present for the past "few months" and seems exacerbated w/ exertion. They walk about 1 mile daily and pt is active around the house: washing dishes, ironing, vacuuming, etc. The pt sleeps elevated w/ pillow support, but her SOB has not previously occurred at night. 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 An Echo was scheduled w/ that service however, pt became agitated during the exam and left. Pt was reportedly unhappy w/ the cardiology provider and no further follow-up was continued. When asked about pt's wishes for resuscitation, states they have a DNR document at home. - HOSPITAL COURSE Hospital Course: (1) Acute respiratory failure with hypoxia No known respiratory hx, no home oxygen use, or smoking history. CXR showed cardiomegaly and bilateral interstitial infiltrates. Pt admitted w/ O2 sats of 81% on 4 Lpm NC. As pt diuresed, her breathing improved and she was on room air later on day of admission. Pt placed into observations status for further management. (2) Flash pulmonary edema Pt's reports intermittent episodes of SOB w/ exertion that resolved with rest and orthopnea w/ sleeping upright. She presented w/ sudden SOB on evening o f 08/09. Pt received BID IV Lasix and was able to come off oxygen with sats 92%. Echo was done and findings required change of meds. Pt prescribed Toprol, Furosemide, and Potassium replacement at discharge. (3) Acute diastolic heart failure EKG showed LVH. CXR showed cardiomegaly and bilateral interstitial infiltrates. Echo showed normal EF of 55-60%, severe diastolic dysfunction, along with Moder- severe , severe MS, mild MR, and severe TR. Pt prescribed Toprol, Furosemide, and Potassium replacement at discharge. Pt encouraged to eat a low sodium diet. (4) Aortic stenosis She has a history of a murmur, however no Echo records were available. She had a 3/6, systolic, crescendo-decrescendo murmur appreciated on exam. Echo performed by Dr. Domínguez showed moder-severe , severe MS, mild MR, and severe TR. She was discharged on furosemide PO, Toprol to improve diastolic function. We discontinued amlodipine and losartan d/t fixed afterload in a patient w/ aortic stenosis. She should remain off of them. (5) Fall during current hospitalization Pt was reported to have fallen overnight and placed in non-violent restraints for safety. When discussing the event with RN and pt's , pt was reclined in a chair and began to scoot herself forward. She reached the edge of the chair, causing the chair to tilt, and the pt slid down the foot extension to the floor. Pt's states she did not hit her head or land with a significant impact; pt denies any new px and pt's head is atraumatic on exam. D/t mechanism of the witnessed gradual descent no imaging was ordered prior to discharge. (6) Hypertension We discontinued amlodipine and losartan d/t fixed afterload. Pt to start taking PO Toprol, Furosemide and Potassium replacement. (7) Glaucoma History for patient. She is to continue her home eye drops for treatment. (8) Dementia with behavioral disturbance History for patient. reports pt has sporadic hallucinations and typically sundown's in the evening. Her dementia is severe, she is A/O x 1 and agitates easily. Pt became combative w/ staff overnight and needed to be restrained for safety. She is to continue her BID PO seroquel as scheduled at home. (9) Hx of atrial flutter Historical EKG which shows atrial flutter; pt presented not on anticoagulants, despite being prescribed coumadin. Per pt's , pt was advised at some point to stop taking coumadin by her neighbor (a surgeon). Pt in sinus rhythm during her stay. - ALLERGIES Allergies/Adverse Reactions: Allergies Allergy/AdvReac Type Severity Reaction Status Date / Time Sulfa (Sulfonamide Allergy Cramps Verified 08/10/23 01:37 PDT Antibiotics) - MEDICATIONS Home Medications: Ambulatory Orders Medication Instructions Recorded Confirmed Atorvastatin [Lipitor] 20 mg PO DAILY 04/09/14 08/10/23 Brimonidine 0.2% Ophth Drops 1 drops EACHEYE DAILY 08/10/23 08/10/23 [Alphagan P 0.2% Ophth Drops] Latanoprost 0.005% Ophth Drops 1 drops EACHEYE QPM 08/10/23 08/10/23 [Xalatan Ophth Drops] Levothyroxine Sodium [Synthroid] 112 mcg PO QDAC 08/10/23 08/10/23 Quetiapine Fumarate [Seroquel] 50 mg PO BID 08/10/23 08/10/23 Timolol 0.5% Ophth Drops [Timoptic 1 drops EACHEYE DAILY 08/10/23 08/10/23 0.5% Ophth Drops] Furosemide [Lasix] 20 mg PO DAILY #30 tablet 08/11/23 Metoprolol Succinate [Toprol Xl] 12.5 mg PO BID #30 tab 08/11/23 Potassium Chloride [Micro-K] 10 meq PO 0800 #30 cap 08/11/23 - PHYSICAL EXAM AT DISCHARGE General Appearance: positive: No acute distress, Other (Hair in rollers) Respiratory: positive: Chest non-tender, Rales (Minimal rales) Cardiovascular: positive: Systolic murmur (3/6, systolic, crescendo-decrescendo, best heard at LUSB) Skin: positive: Color nml, No rash, Warm, Dry Extremities: positive: Non-tender, No pedal edema Neurologic/Psychiatric: positive: Mood/affect nml, Disoriented to place, Disoriented to time - LABS Result Diagrams: 08/11/23 04:46 08/11/23 04:46 - DIAGNOSTIC IMAGING Diagnostic Imaging Results: Final report reviewed (CXR; Bedside Echo by Dr. Domínguez), Other - FOLLOW UP Follow Up: Recommend 5-10 day f/u w/ PCP Connie at [facility] in [place]. Also recommend cardiology f/u for CHF as directed by PCP. - TIME SPENT Time Spent in Discharge (Minutes): 35
[2023-08-11] MEDS ORDERED: FUROSEMIDE 40 MG TABLET PO SCH (08:00)
[2023-08-11] MEDS ORDERED: POTASSIUM CHLORIDE 10 MEQ CAPSULE PO ONE (08:02)
[2023-08-11] MEDS ORDERED: MAGNESIUM OXIDE 400 MG TABLET PO ONE (08:03)
[2023-08-11 08:50] VITALS: BP 121/84; O2SAT 94
[2023-08-11] MEDS ORDERED: QUEtiapine 25 MG TABLET PO SCH (09:00)
[2023-08-11] MEDS: METOPROLOL SUCCINATE 25 MG TABLET PO SCH ×2 (09:11→09:23)
[2023-08-11] MEDS: ENOXAPARIN 40 MG/0.4 ML SYRINGE SUBQ SCH (09:22)
[2023-08-11] MEDS: QUEtiapine 25 MG TABLET PO SCH (09:25)
[2023-08-11] MEDS: BRIMONIDINE 0.2% OPHTH DROPS 5 ML EACHEYE SCH (09:25)
[2023-08-11] MEDS: TIMOLOL 0.5% OPHTH DROPS EACHEYE SCH (09:26)
== END 2023-08-11 09:40 | disposition home or self-care (01) ==
LOC: ED 01:27 → MS2 07:25
PROVIDERS: ADMIT Internal Medicine; ATTEND Internal Medicine
DX: J96.01 Acute respiratory failure with hypoxia (principal); J81.0 Acute pulmonary edema; I11.0 Hypertensive heart disease with heart failure; I50.31 Acute diastolic (congestive) heart failure; I08.3 Combined rheumatic disorders of mitral, aortic and tricuspid valves; E03.9 Hypothyroidism, unspecified; G30.9 Alzheimer's disease, unspecified; F02.811 Dementia in other diseases classified elsewhere, unspecified severity, with agitation; F02.C2 Dementia in other diseases classified elsewhere, severe, with psychotic disturbance; F05 Delirium due to known physiological condition; W18.30XA Fall on same level, unspecified, initial encounter; Y92.230 Patient room in hospital as the place of occurrence of the external cause; Z78.1 Physical restraint status; Z83.511 Family history of glaucoma; Z66 Do not resuscitate; I48.92 Unspecified atrial flutter; T45.516A Underdosing of anticoagulants, initial encounter; H40.219 Acute angle-closure glaucoma, unspecified eye; E78.00 Pure hypercholesterolemia, unspecified
CPT/HCPCS: 36415; 71045; 80048; 80053; 81001; 83605; 83690; 83735; 83880; 84100; 84443; 84484; 85025; 87040; 87633; 87640; 93005; 94660; 96365; 96372; 96375; 96376; 99285; A9270; G0378; J1650; 81003; 87086

== ENCOUNTER 2024-02-09 14:09 | Outpatient (CLI) | payer MEDICARE | END 2024-02-09 23:59 | disposition critical access hospital (66) | LOC: EMS 14:09 | PROVIDERS: ATTEND Emergency Medicine | DX: R10.84 Generalized abdominal pain (principal); R32 Unspecified urinary incontinence; R53.1 Weakness | CPT/HCPCS: A0425; A0429 ==

== ENCOUNTER 2024-02-09 14:22 | Emergency (ER) | payer MEDICARE ==
--- NOTE | 2024-02-09 14:27 | ED Physician Documentation ---
History of Present Illness - Stated complaint Stated Complaint: WEAKNESS - History obtained from History obtained from: Patient, EMS - Additonal information Additional information: 83-year-old woman with history of valvular disease and dementia presents by ambulance. Reportedly was having belly pain this morning which resolved after urinating and generalized weakness which she feels like is better now. Prehospital vital signs and blood sugar were unremarkable. not available on initial evaluation but EMS tells me he is coming to the hospital. 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 : Other HEENT: Glaucoma Psych: None Musculoskeletal: Osteoarthritis Derm: None - Past Surgical History Past Surgical History: Yes HEENT: Other - Present Medications Home Medications: Ambulatory Orders Medication Instructions Recorded Confirmed Atorvastatin [Lipitor] 20 mg PO DAILY 04/09/14 08/10/23 Brimonidine 0.2% Ophth Drops 1 drops EACHEYE DAILY 08/10/23 08/10/23 [Alphagan P 0.2% Ophth Drops] Latanoprost 0.005% Ophth Drops 1 drops EACHEYE QPM 08/10/23 08/10/23 [Xalatan Ophth Drops] Levothyroxine Sodium [Synthroid] 112 mcg PO QDAC 08/10/23 08/10/23 Quetiapine Fumarate [Seroquel] 50 mg PO BID 08/10/23 08/10/23 Timolol 0.5% Ophth Drops [Timoptic 1 drops EACHEYE DAILY 08/10/23 08/10/23 0.5% Ophth Drops] Furosemide [Lasix] 20 mg PO DAILY #30 tablet 08/11/23 Metoprolol Succinate [Toprol Xl] 12.5 mg PO BID #30 tab 08/11/23 Potassium Chloride [Micro-K] 10 meq PO 0800 #30 cap 08/11/23 - Allergies Allergies/Adverse Reactions: Allergies Allergy/AdvReac Type Severity Reaction Status Date / Time Sulfa (Sulfonamide Allergy Cramps Verified 02/09/24 14:27 Antibiotics) - Social History Does the pt smoke?: No Smoking Status: Never smoker Does the pt drink ETOH?: No Does the pt have substance abuse?: No - POLST Patient has POLST: No POLST Status: DNR (Per , they have a DNR document at home) PD ED PE NORMAL - Vitals Vital signs reviewed: Yes - General General: Other (She is alert and oriented to person and place, not so great on time and events.) - Cardiac Cardiac: RRR, Other (Blowing holosystolic murmur heard best at the left upper sternal border. Chronic per EMS.) - Respiratory Respiratory: No respiratory distress, Clear bilaterally - Abdomen Abdomen: Other (Lower abdominal fullness, question urinary retention. No tenderness.) - Extremities Extremities: No edema, No calf tenderness / cord - Neuro Eye Opening: Spontaneous Motor: Obeys Commands Verbal: Confused GCS Score: 14 Results - Vitals Vitals: Vital Signs - 24 hr 02/09/24 02/09/24 02/09/24 14:27 14:29 16:29 Temperature 36.6 C Heart Rate 60 78 63 Respiratory 18 16 18 Rate Blood Pressure 151/85 H 142/86 H 153/99 H O2 Saturation 96 96 98 Oxygen O2 Source Room air - Labs Labs: Laboratory Tests 02/09/24 02/09/24 02/09/24 14:46 14:46 17:05 WBC 7.1 RBC 4.32 Hgb 14.1 Hct 41.9 MCV 97.0 MCH 32.6 H MCHC 33.7 RDW 13.4 Plt Count 208 MPV 9.9 Neut # (Auto) 6.2 Lymph # (Auto) 0.4 L [place] # (Auto) 0.4 Eos # (Auto) 0.1 Baso # (Auto) 0.0 Absolute Nucleated RBC 0.00 Nucleated RBC % 0.0 Sodium 138 Potassium 4.3 Chloride 106 Carbon Dioxide 26 Anion Gap 6.0 BUN 32 H Creatinine 1.4 H Estimated GFR (MDRD) 36 L Glucose 110 H Calcium 9.9 Total Bilirubin 1.4 H AST 18 ALT 11 Alkaline Phosphatase 64 Total Protein 7.3 Albumin 4.2 Globulin 3.1 Albumin/Globulin Ratio 1.4 Urine Color YELLOW Urine Clarity HAZY Urine pH 6.0 Ur Specific [place] 1.015 Urine Protein 30 H Urine Glucose (UA) NEGATIVE Urine Ketones NEGATIVE Urine Occult Blood TRACE-INTA Urine Nitrite NEGATIVE Urine Bilirubin NEGATIVE Urine Urobilinogen 0.2 (NORMAL) Ur Leukocyte Esterase NEGATIVE Urine RBC 0-5 Urine WBC 0-3 Urine WBC Clumps PRESENT Ur Squamous Epith Cells FEW Squamous Urine Bacteria Few Ur Microscopic Review INDICATED Urine Culture Comments NOT INDICATED PD Medical Decision Making - ED course ED course: 83-year-old woman presents with recurrent episode of weakness today with incontinence. She is better here with unremarkable CBC, CMP with chronic renal insufficiency unchanged from prior and unremarkable urine. She was ambulatory here without issue. Vital signs showing mild hypertension, otherwise unremarkable. Departure - Departure Disposition: Home, Self Care Clinical Impression: Dementia with behavioral disturbance, Muscle weakness Condition: Good Record reviewed to determine appropriate education?: Yes Instructions: ED Dementia Caregiver Support, ED Weakness UKO Comments: Workup today demonstrates no evidence of UTI and it seems that her weakness has improved. Return for new or worsening symptoms. Have her drink plenty of fluids. Follow-up with your primary care physician, next available appointment for recheck.
[2024-02-09 14:52] LABS: BASOPHILS % (AUTO) 0.4 %; EOSINOPHILS # (AUTO) 0.1 10^3/uL (0.0-0.7); EOSINOPHILS % (AUTO) 1.3 %; HCT - HEMATOCRIT 41.9 % (37.0-47.0); HGB - HEMOGLOBIN 14.1 g/dL (12.0-16.0); LYMPHOCYTES # (AUTO) 0.4 10^3/uL (1.5-3.5); MEAN CORPUSCULAR HEMOGLOBIN 32.6 pg (27.0-31.0); MEAN CORPUSCULAR HGB CONC 33.7 g/dL (32.0-36.0); MEAN PLATELET VOLUME 9.9 fL (7.9-10.8); MONOCYTES # (AUTO) 0.4 10^3/uL (0.0-1.0); MONOCYTES % (AUTO) 5.2 %; NEUTROPHILS # (AUTO) 6.2 10^3/uL (1.5-6.6); NEUTROPHILS % (AUTO) 86.7 %; PLT - PLATELET COUNT 208 10^3/uL (130-450); RED BLOOD COUNT 4.32 10^6/uL (4.20-5.40); RED CELL DISTRIBUTION WIDTH 13.4 % (12.0-15.0); WHITE BLOOD COUNT 7.1 x10^3/uL (4.8-10.8)
[2024-02-09 15:07] LABS: ALBUMIN 4.2 g/dL (3.2-5.5); ALBUMIN/GLOBULIN RATIO 1.4 (1.0-2.2); BILIRUBIN,TOTAL 1.4 mg/dL (0.2-1.0); CALCIUM 9.9 mg/dL (8.5-10.3); CREATININE 1.4 mg/dL (0.6-1.3); POTASSIUM 4.3 mmol/L (3.5-4.5); TOTAL PROTEIN 7.3 g/dL (6.4-8.9)
[2024-02-09 17:18] LABS: BILIRUBIN,URINE NEGATIVE (NEGATIVE); GLUCOSE, URINE (UA) NEGATIVE (NEGATIVE); KETONES,URINE (UA) NEGATIVE (NEGATIVE); LEUKOCYTE ESTERASE, URINE NEGATIVE (NEGATIVE); NITRITE,URINE NEGATIVE (NEGATIVE); OCCULT BLOOD,URINE TRACE-INTA (NEGATIVE); PROTEIN,URINE 30 mg/dL (NEGATIVE); UROBILINOGEN,URINE 0.2 (NORMAL) E.U./dL (NORMAL)
[2024-02-09 17:20] VITALS: O2SAT 98
[2024-02-09 17:26] LABS: CLARITY,URINE HAZY (CLEAR)
[2024-02-09 17:32] LABS: BACTERIA,URINE Few /HPF (None Seen); RBC,URINE 0-5 /HPF (0-5); SQUAMOUS EPITHELIAL CELL,UR FEW Squamous (<= Few); WBC CLUMPS,URINE PRESENT; WBC,URINE 0-3 /HPF (0-5)
[2024-02-09 17:56] VITALS: BP 146/88
== END 2024-02-09 17:41 | disposition home or self-care (01) ==
LOC: ED 14:22
DX: G30.9 Alzheimer's disease, unspecified (principal); F02.818 Dementia in other diseases classified elsewhere, unspecified severity, with other behavioral disturbance; M62.81 Muscle weakness (generalized); I10 Essential (primary) hypertension; E78.00 Pure hypercholesterolemia, unspecified; I48.91 Unspecified atrial fibrillation; Z79.01 Long term (current) use of anticoagulants; E03.9 Hypothyroidism, unspecified
CPT/HCPCS: 36415; 80053; 81001; 81003; 85025; 87086; 99283

== ENCOUNTER 2024-04-27 12:28 | Outpatient (CLI) | payer MEDICARE | END 2024-04-27 23:59 | disposition critical access hospital (66) | LOC: EMS 12:28 | DX: S60.512A Abrasion of left hand, initial encounter (principal); S60.511A Abrasion of right hand, initial encounter; S80.812A Abrasion, left lower leg, initial encounter; S80.811A Abrasion, right lower leg, initial encounter; W17.81XA Fall down embankment (hill), initial encounter; Y92.008 Other place in unspecified non-institutional (private) residence as the place of occurrence of the external cause; F03.918 Unspecified dementia, unspecified severity, with other behavioral disturbance; Z91.83 Wandering in diseases classified elsewhere | CPT/HCPCS: A0425; A0429 ==

== ENCOUNTER 2024-04-27 12:41 | Inpatient (IN) | payer MEDICARE ==
--- NOTE | 2024-04-27 13:15 | ED Physician Documentation ---
History of Present Illness - Stated complaint Stated Complaint: MEDICAL EVAL - Chief complaint Chief Complaint: General - History obtained from History obtained from: Family - Additonal information Additional information: This is an 84-year-old patient with advanced dementia brought in by after he found her after an apparent fall. He last saw her at about 9:00 last night when he went to bed this morning he got up and was looking for her and could not find her when outside and eventually found her at the bottom of a hill slope she had apparently slipped and fallen and fell through some bushes. She arrives moving all extremities but with an incredible number of excoriations and scratches on her lower extremities presumably from these bushes. She is unable to provide any history. On clear how long she was stuck on the side of the hill. describes that she has been urinating more frequently and indiscriminately and that it "smells really bad". She lives with her in a private home. 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 : Other HEENT: Glaucoma Psych: None Musculoskeletal: Osteoarthritis Derm: None - Past Surgical History Past Surgical History: Yes HEENT: Other - Present Medications Home Medications: Ambulatory Orders Medication Instructions Recorded Confirmed Atorvastatin [Lipitor] 20 mg PO DAILY 04/09/14 08/10/23 Brimonidine 0.2% Ophth Drops 1 drops EACHEYE DAILY 08/10/23 08/10/23 [Alphagan P 0.2% Ophth Drops] Latanoprost 0.005% Ophth Drops 1 drops EACHEYE QPM 08/10/23 08/10/23 [Xalatan Ophth Drops] Levothyroxine Sodium [Synthroid] 112 mcg PO QDAC 08/10/23 08/10/23 Quetiapine Fumarate [Seroquel] 50 mg PO BID 08/10/23 08/10/23 Timolol 0.5% Ophth Drops [Timoptic 1 drops EACHEYE DAILY 08/10/23 08/10/23 0.5% Ophth Drops] Furosemide [Lasix] 20 mg PO DAILY #30 tablet 11/06/23 Metoprolol Succinate [Toprol Xl] 12.5 mg PO BID #30 tab 08/11/23 Potassium Chloride [Micro-K] 10 meq PO 0800 #30 cap 08/11/23 - Allergies Allergies/Adverse Reactions: Allergies Allergy/AdvReac Type Severity Reaction Status Date / Time Penicillins Allergy Rash Verified 04/27/24 13:00 Sulfa (Sulfonamide Allergy Cramps Verified 02/09/24 14:27 Antibiotics) - Social History Does the pt smoke?: No Smoking Status: Never smoker Does the pt drink ETOH?: No Does the pt have substance abuse?: No - Immunizations Immunizations are current?: Yes - POLST Patient has POLST: No POLST Status: DNR (Per , they have a DNR document at home) PD ED PE NORMAL - Vitals Vital signs reviewed: Yes - General General: No acute distress - HEENT HEENT: Atraumatic - Neck Neck: Supple, no meningeal sign, No bony TTP - Cardiac Cardiac: RRR, No murmur - Respiratory Respiratory: No respiratory distress - Abdomen Abdomen: Normal bowel sounds, Soft - Derm Derm: Other (Excoriations throughout both legs) - Extremities Extremities: No deformity, No tenderness to palpate, Normal ROM s pain - Neuro Neuro: No motor deficit, No sensory deficit Eye Opening: Spontaneous Motor: Obeys Commands Verbal: Confused GCS Score: 14 Results - Vitals Vitals: Vital Signs - 24 hr 04/27/24 04/27/24 04/27/24 12:51 13:00 15:48 Temperature 35.6 C L Heart Rate 60 59 L 59 L Respiratory 20 16 Rate Blood Pressure 112/91 H 107/90 H 124/93 H O2 Saturation 98 99 100 Oxygen O2 Source Room air - EKG (time done) 1324 EKG releavant findings:: EKG personally interpreted by author of this note. Relevant findings are: Normal sinus rhythm first-degree AV block. LVH. No obvious acute ischemia. no sign change c/w 08/10/2023 - Labs Labs: Laboratory Tests 04/27/24 04/27/24 04/27/24 13:29 13:29 13:29 WBC 6.3 RBC 3.94 L Hgb 13.0 Hct 38.7 MCV 98.2 MCH 33.0 H MCHC 33.6 RDW 15.1 H Plt Count 194 MPV 10.2 Neut # (Auto) 5.3 Lymph # (Auto) 0.5 L [place] # (Auto) 0.5 Eos # (Auto) 0.0 Baso # (Auto) 0.0 Absolute Nucleated RBC 0.00 Nucleated RBC % 0.0 Sodium 139 Potassium 4.2 Chloride 106 Carbon Dioxide 22 Anion Gap 11.0 BUN 50 H Creatinine 2.6 H Estimated GFR (MDRD) 17 L Glucose 92 Calcium 10.3 Total Bilirubin 1.1 H AST 42 ALT 23 Alkaline Phosphatase 62 Total Creatine Kinase 882 H Troponin I High Sens 73.3 H* Total Protein 7.2 Albumin 4.3 Globulin 2.9 Albumin/Globulin Ratio 1.5 Urine Color Urine Clarity Urine pH Ur Specific [place] Urine Protein Urine Glucose (UA) Urine Ketones Urine Occult Blood Urine Nitrite Urine Bilirubin Urine Urobilinogen Ur Leukocyte Esterase Urine RBC Urine WBC Ur Squamous Epith Cells Urine Bacteria Ur Microscopic Review Urine Culture Comments 04/27/24 15:18 WBC RBC Hgb Hct MCV MCH MCHC RDW Plt Count MPV Neut # (Auto) Lymph # (Auto) [place] # (Auto) Eos # (Auto) Baso # (Auto) Absolute Nucleated RBC Nucleated RBC % Sodium Potassium Chloride Carbon Dioxide Anion Gap BUN Creatinine Estimated GFR (MDRD) Glucose Calcium Total Bilirubin AST ALT Alkaline Phosphatase Total Creatine Kinase Troponin I High Sens Total Protein Albumin Globulin Albumin/Globulin Ratio Urine Color YELLOW Urine Clarity CLOUDY Urine pH 7.5 Ur Specific [place] 1.020 Urine Protein TRACE Urine Glucose (UA) NEGATIVE Urine Ketones NEGATIVE Urine Occult Blood NEGATIVE Urine Nitrite NEGATIVE Urine Bilirubin NEGATIVE Urine Urobilinogen 0.2 (NORMAL) Ur Leukocyte Esterase SMALL H Urine RBC 0-5 Urine WBC >25 H Ur Squamous Epith Cells RARE Squamous Urine Bacteria Many H Ur Microscopic Review INDICATED Urine Culture Comments INDICATED I note she has elevated BUN and creatinine of 50 and 2.6 consistent with acute kidney injury. Her baseline creatinine appears to be 1.5 based on her discharge summary from August 2023. She has mildly elevated total CK of 882. May have some element of mild rhabdomyolysis trending this would be helpful. PD Medical Decision Making - ED course ED course: Will check medical workup for worsening of her dementia safely if she has electrolyte abnormality or infection. does describe a lot of urinary symptoms. From a traumatic standpoint we will get head CT and CT of her C- spine. Will check CK as she had an unknown downtime and could be at risk for rhabdo. She has lab evidence of KARLY and elevated CK. This could be due to dehydration and/or her unknown downtime on the slope on her yard. She also has a elevated troponin of unclear etiology. Trending needs to be useful. CT of her brain and C-spine are negative. She has no evidence of any other traumatic injury aside from the many many scratches on her legs. No sign of fracture of any of the extremities. She will benefit from IV hydration and admission and further lab testing. Discussed with Dr. Mcleod from the hospital medicine team who is in agreement. I also began the discussions with her regarding the safety of her current living situation as she did leave their house and get into trouble sometime obtained 9 PM and this morning. This is obviously concerning as far as her living situation goes. He at the time of my discussion is quite adamant that "she needs to come back home". Dr. Mcleod is aware and will work with the patient and the family to make a safe disposition home. Departure - Departure Disposition: 66 [facility] DC/Xfer Clinical Impression: Fall, Dementia, NSTEMI (non-ST elevated myocardial infarction), KARLY (acute kidney injury) Condition: Fair Forms: PCP List
[2024-04-27 13:35] LABS: BASOPHILS % (AUTO) 0.3 %; EOSINOPHILS % (AUTO) 0.3 %; HCT - HEMATOCRIT 38.7 % (37.0-47.0); LYMPHOCYTES # (AUTO) 0.5 10^3/uL (1.5-3.5); LYMPHOCYTES % (AUTO) 7.6 %; MEAN CORPUSCULAR HGB CONC 33.6 g/dL (32.0-36.0); MEAN CORPUSCULAR VOLUME 98.2 fL (81.0-99.0); MEAN PLATELET VOLUME 10.2 fL (7.9-10.8); MONOCYTES # (AUTO) 0.5 10^3/uL (0.0-1.0); MONOCYTES % (AUTO) 8.5 %; NEUTROPHILS # (AUTO) 5.3 10^3/uL (1.5-6.6); PLT - PLATELET COUNT 194 10^3/uL (130-450); RED BLOOD COUNT 3.94 10^6/uL (4.20-5.40); RED CELL DISTRIBUTION WIDTH 15.1 % (12.0-15.0); WHITE BLOOD COUNT 6.3 x10^3/uL (4.8-10.8)
[2024-04-27 13:51] LABS: ALBUMIN 4.3 g/dL (3.2-5.5); ALBUMIN/GLOBULIN RATIO 1.5 (1.0-2.2); BILIRUBIN,TOTAL 1.1 mg/dL (0.2-1.0); CALCIUM 10.3 mg/dL (8.5-10.3); CREATININE 2.6 mg/dL (0.6-1.3); POTASSIUM 4.2 mmol/L (3.5-4.5); TOTAL PROTEIN 7.2 g/dL (6.4-8.9)
[2024-04-27] MEDS: SODIUM CHLORIDE 0.9% 1,000 ML IV STA (14:18)
--- NOTE | 2024-04-27 15:00 | XRAY Report ---
PROCEDURE: Chest 1V INDICATIONS: fall TECHNIQUE: One view of the chest was acquired. COMPARISON: 08/10/2023 FINDINGS: Surgical changes and devices: None. Lungs and pleura: Mild to moderate diffuse lung disease. No drainable effusions. The lung apices are obscured by the patient's head. Mediastinum: Cardiomegaly is more prominent. Bones and chest wall: Degenerative changes IMPRESSION: Mild to moderate diffuse lung disease could represent underlying senescent changes/fibrosis versus at ypical infection/edema. No drainable effusions. If there is high concern for occult injury, consider repeat radiography or cross-sectional imaging. Limited radiograph due to portable technique and positioning. Reviewed by: Ryan Armas MD on 04/27/2024 2:58 PM PDT Approved by: Ryan Armas MD on 04/27/2024 2:58 PM PDT Station ID: [id number]
--- NOTE | 2024-04-27 15:18 | CT Report ---
PROCEDURE: Head WO INDICATIONS: fall TECHNIQUE: Noncontrast 4.5 mm thick angled axial sections acquired from the foramen magnum to the vertex. For r adiation dose reduction, the following was used: automated exposure control, adjustment of mA and/or kV according to patient size. COMPARISON: 06/23/2021 FINDINGS: Image quality: Diagnostic CSF spaces: Basal cisterns are patent. Lateral ventricles are symmetric. Volume: Vascular calcifications. Periventricular white matter disease is commonly seen with chronic m icroangiopathy. Volume loss is present. These findings are moderate. Brain: No gross loss of rios-white differentiation. No acute hemorrhage. Basal ganglia mineralization Craniofacial structures: No significant paranasal sinus opacity. Small hyperdensities again seen in t he anterior orbits. IMPRESSION: No acute intracranial hemorrhage. Reviewed by: Ryan Armas MD on 04/27/2024 3:17 PM PDT Approved by: Ryan Armas MD on 04/27/2024 3:17 PM PDT Station ID: [id number]
--- NOTE | 2024-04-27 15:21 | CT Report ---
PROCEDURE: Cervical Spine WO INDICATIONS: fall TECHNIQUE: Noncontrast 3 mm thick sections acquired from the skull base to the T4 level. Sagittal and coronal r eformats were then constructed. For radiation dose reduction, the following was used: automated exp osure control, adjustment of mA and/or kV according to patient size. COMPARISON: None. FINDINGS: Image quality: Diagnostic Bones: Mild degenerative changes. No traumatic subluxation. Mild superior endplate deformity at T2. Soft tissues: Vascular calcifications. Thyroid is not well seen. No apical pneumothorax. Prevertebral soft tissues are within normal limits IMPRESSION: Mild superior endplate deformity at T2, age indeterminate. No traumatic subluxation. If there is high concern for further derangement, consider MRI evaluation. Reviewed by: Ryan Armas MD on 04/27/2024 3:20 PM PDT Approved by: Ryan Armas MD on 04/27/2024 3:20 PM PDT Station ID: [id number]
[2024-04-27] MEDS ORDERED: ONDANSETRON 4 MG/2 ML VIAL IVP PRN (15:58)
[2024-04-27] MEDS ORDERED: SODIUM CHLORIDE FLUSH 0.9% 10 ML SYRINGE IVP PRN (15:58)
[2024-04-27] MEDS ORDERED: ONDANSETRON ODT 4 MG TABLET TL PRN (15:58)
[2024-04-27] MEDS ORDERED: ACETAMINOPHEN 325 MG TABLET PO PRN (15:58)
[2024-04-27 16:01] LABS: BILIRUBIN,URINE NEGATIVE (NEGATIVE); GLUCOSE, URINE (UA) NEGATIVE (NEGATIVE); KETONES,URINE (UA) NEGATIVE (NEGATIVE); LEUKOCYTE ESTERASE, URINE SMALL (NEGATIVE); NITRITE,URINE NEGATIVE (NEGATIVE); OCCULT BLOOD,URINE NEGATIVE (NEGATIVE); PH,URINE 7.5 PH (5.0-7.5); PROTEIN,URINE TRACE mg/dL (NEGATIVE); UROBILINOGEN,URINE 0.2 (NORMAL) E.U./dL (NORMAL)
[2024-04-27 16:07] LABS: CLARITY,URINE CLOUDY (CLEAR)
[2024-04-27 16:15] LABS: WBC,URINE >25 /HPF (0-5)
[2024-04-27 16:16] LABS: BACTERIA,URINE Many /HPF (None Seen); RBC,URINE 0-5 /HPF (0-5); SQUAMOUS EPITHELIAL CELL,UR RARE Squamous (<= Few)
--- NOTE | 2024-04-27 16:23 | HISTORY & PHYSICAL EXAMINATION ---
History of Present Illness - Admitted From Admitted From:: ED - History Obtained From Records Reviewed: ED note, previous admissions and ED visits History obtained from: , DOA Exam Limitations: Dementia, A/Ox1, difficulty following commands - History of Present Illness HPI Comment/Other: This is an 84-year-old patient with advanced dementia brought in by after he found her after an apparent fall. He last saw her at about 9:00 last night when he went to bed this morning he got up and was looking for her and could not find her when outside and eventually found her at the bottom of a 30 foot hill slope she had apparently slipped and fallen and fell through some bushes. She arrives moving all extremities but with an incredible number of excoriations and scratches on her lower extremities presumably from these bushes. She is unable to provide any history. On clear how long she was stuck on the side of the hill. describes that she has been urinating more f requently, increasing over the past 3 months, indiscriminately, and that it "smells really bad". She lives with her in a private home and he is her primary caregiver. states this is the third time she has left the house and the second time he has called 911 to find her. He states she has been lying on the ground and pushing herself around with her feet recently and sleeping on the floor. He secures her in her room at night by blocking the exit with an open door and tying it so she can't exit. He sleep upstairs and is not sure how much she is up at night. He sues duarte to prevent her from going into certain rooms or upstairs. He does not have a house alarm and states neighbors help him watch her sometimes if he has to leave. He has no family locally. Review of Systems Unable to obtain: Dementia - Past Medical History Past Medical History: Yes Cardiovascular: Hypertension, High cholesterol, Murmur, aortic stenosis, diastolic HFpEF Respiratory: None Neuro: Alzhiemer's, Dementia Endocrine/Autoimmune: HyPOthyroidism s/p partial thryoidectomy for thyroid cancer GI: Gallbladder cancer DISTRIBUTION ENGINEER: None : Other HEENT: Glaucoma, cataracts Psych: None Musculoskeletal: Osteoarthritis Derm: Shingles - Past Surgical History Past Surgical History: Yes HEENT: cataract removal, unk which eye Left wrist surgery for fx Partial thyroidectomy History - Past Medical History Cardiovascular: reports: Congestive heart failure (diastolic HFpEF), Hypertension, High cholesterol, Murmur, Valve disorder (, MS, MR, TR), Other Respiratory: reports: None Neuro: reports: Alzhiemer's, Dementia Endocrine/Autoimmune: reports: HyPOthyroidism GI: reports: None, Other (gallbaldder cancer) DISTRIBUTION ENGINEER: reports: None : reports: Other HEENT: reports: Glaucoma, Other (cataracts) Psych: reports: None Musculoskeletal: reports: Osteoarthritis Derm: reports: Herpes zoster (Recent shingles 2 weeks ago, completed course of valacyclovir, lesions on right groin and upper thigh, healed) MRSA Hx?: Yes - Past Surgical History General: reports: Other (partial thryoidectomy) Ortho: reports: Other (left wrist fx ) HEENT: reports: Cataracts Derm: reports: Other - Family & Social History Family History: Mother: , Alzheimer's Disease, Father: , Cancer (Unspecified) Living Situation: With spouse/s.o. - Substance History Use: Uses substance without health or social issues: NONE - POLST Patient has POLST: No POLST Status: DNR (Per , they have a DNR document at home) Meds/Allgy - Home Medications Home Medications: Ambulatory Orders Medication Instructions Recorded Confirmed Atorvastatin [Lipitor] 20 mg PO DAILY 04/09/14 08/10/23 Brimonidine 0.2% Ophth Drops 1 drops EACHEYE DAILY 08/10/23 08/10/23 [Alphagan P 0.2% Ophth Drops] Latanoprost 0.005% Ophth Drops 1 drops EACHEYE QPM 08/10/23 08/10/23 [Xalatan Ophth Drops] Levothyroxine Sodium [Synthroid] 112 mcg PO QDAC 08/10/23 08/10/23 Quetiapine Fumarate [Seroquel] 50 mg PO BID 08/10/23 08/10/23 Furosemide [Lasix] 20 mg PO DAILY #30 tablet 08/11/23 Metoprolol Succinate [Toprol Xl] 12.5 mg PO BID #30 tab 08/11/23 Aspirin/Acetaminophen/Caffeine 1 each PO DAILY PRN 04/27/24 04/27/24 [Gnp Headache [id number] Cplt] Calcium Carbonate [Calcium] 600 mg PO BID 04/27/24 04/27/24 Cholecalciferol [Vitamin D3] 25 mcg PO DAILY 04/27/24 04/27/24 Potassium Chloride [Klor-Con 10] 20 meq PO DAILY 04/27/24 04/27/24 QUEtiapine [SEROquel] 37.5 mg PO DAILY 04/27/24 04/27/24 Timolol Maleate/Pf [Timolol 1 drops EACHEYE DAILY 04/27/24 04/27/24 Maleate 0.5% Eye Drop] amLODIPine [Norvasc] 5 mg PO DAILY 04/27/24 04/27/24 - Allergies Allergies/Adverse Reactions: Allergies Allergy/AdvReac Type Severity Reaction Status Date / Time Penicillins Allergy Rash Verified 04/27/24 17:46 Sulfa (Sulfonamide Allergy Cramps Verified 04/27/24 17:46 Antibiotics) Review of Systems - Gastrointestinal Gastrointestinal: denies: Constipation, Diarrhea, Vomiting - Genitourinary Genitourinary: reports: Frequency, Incontinence (Increasing over past 3 months), Other (strong urinary odor) - Musculoskeletal Musculoskeletal: reports: Other (Limited use of left hand d/t nerve damage from fx) - All Other Systems All Other Systems: reports: Reviewed and negative (Obtained from ), Other (Obtained from , limited ROS from patient) Prior Level of Functionality: Dependent on as primary caregiver, unable to care for self due to Alzheimer's dementia. Ambulatory, can be unsteady on feet, able to feed self, requires assistance with dressing and bathing. Does use any DME. Exam - Vital Signs Vital Signs: Vital Signs x48h Temp Pulse Resp BP Pulse Ox 04/27/24 15:48 59 L 124/93 H 100 04/27/24 13:00 59 L 16 107/90 H 99 04/27/24 12:51 35.6 C L 60 20 112/91 H 98 - Physical Exam General Appearance: positive: Mild distress (Shivering with occasional moans) Eyes Bilateral: positive: Normal inspection (Difficulty with eye exam as she is unable to keep eyes open and actively resists opening, unable to follow commands for EOM evaluation), PERRL, No lid inflammation, Conjunctivae nml, No scleral icterus ENT: positive: ENT inspection nml. negative: Oral lesions Neck: positive: Nml inspection, No JVD, Trachea midline Respiratory: positive: Chest non-tender, No respiratory distress, Breath sounds nml. negative: Wheezes, Rales, Rhonchi Cardiovascular: positive: Regular rate & rhythm, Systolic murmur (Present in all sites, radiating to axilla and carotids), Diastolic murmur (appreciated over lateral axilla and mitral valve) Peripheral Pulses: positive: 2+ Abdomen: positive: Non-tender, No organomegaly, Nml bowel sounds, No distention Back: positive: Other (Erythema with abrasion bilateral thoracic back lateral to spine, does not appear new No midline tenderness) Skin: positive: No rash, Warm, Dry, Pallor, Laceration (cm) (Multiple superficial lacerations across anterior legs, feet and hands). negative: Skin rash Extremities: positive: Non-tender, Full ROM, Pedal edema (Mild non-pitting bilateral lower leg edema) Neurologic/Psychiatric: positive: Motor nml (Moves all extremities), Sensation nml (intact to light touch on all extremities). negative: Disoriented to place, Disoriented to time, Sensory loss (Sesnation grossly intact to light touch), Facial droop Sepsis Event Note (H) - Evaluation Current Stage of Sepsis: Ruled out (Elevated RR with UTI, WBC, BP, HR and temp all normal) Conclusion/Plan - Problem List (1) KARLY (acute kidney injury) Conclusion/Plan: KARLY due to traumatic rhabdomyolisis and dehydration after prolonged downtime outside, BUN 50, Cr 2.1, eGFR 17. Treat with fluids, monitor electrolytes, accurate I/O's. (2) Rhabdomyolysis Conclusion/Plan: Traumatic rhabdomyolysis after fall down 30 foot embankment with prolonged downtime outside up to 14 hrs. Creatinine kinase 882, lactate 1.1. Qualifiers: Rhabdomyolysis type: traumatic Encounter type: initial encounter Qualified Code(s): T79.6XXA - Traumatic ischemia of muscle, initial encounter (3) UTI (urinary tract infection) Conclusion/Plan: reports incontinence with strong odor, increasing over the past 3 months. UA shows WBC>25, many bacteria, and small leukocyte esterase. Treat with rocephin. (4) Troponin level elevated Conclusion/Plan: Troponin elevated at 73.3. Repeat troponin q 4 hrs, repeat 12-lead ECG if rising (5) Fall Conclusion/Plan: Found down a 30 foot embankment with brush, appears to have fallen over low rabbit fence with brush breaking fall, unwitnessed. Multiple superficial lacerations on hands, legs and feet. CT head and neck negative for ICH or fx, c hest x-ray negative for fx. Observe for signs or reports of pain. Treat pain as needed. Qualifiers: Encounter type: initial encounter Qualified Code(s): W19.XXXA - Unspecified fall, initial encounter (6) Heart failure due to valvular disease Conclusion/Plan: Hx of diastolic HFpEF with severe , MR, MS, TR, long-term murmur: Monitor for fluid overload, hold home meds until rhabdo resolved, resume once stable. (7) Dementia with behavioral disturbance Conclusion/Plan: Hx of demenita with behavioral disturbance and physcial agitation: Keep bed low, bed alarm, quetiapine home quetiapine of 37.5mg in the am and 75 mg in the evening, soft restraints if needed. - Lab Results Lab results reviewed: Yes Fish Bones: 04/27/24 13:29 04/27/24 13:29 Other Lab Results: Creatinine kinase 882, lactate 1.1, Troponin 73.3, UA significant for Leukocytes >25, many bacteria, and small leukocyte esterase - Diagnostic Imaging Results Diagnostic Imaging Results: positive: Final report reviewed Diagnostic Imaging Results Comments: CT head: no ICH or fx CT c-spine: mild degenerative changes at T2, no fx Chest X-ray: No fx, mild to moderate diffuse pulmonary disease, could be senescent or related to edema/atypical infection - EKG Results EKG Interpreted Independently: No EKG Comparison: Unchanged from prior EKG EKG Findings: ED interpretation: Normal sinus rhythm first-degree AV block. LVH. No obvious acute ischemia. no sign change c/w 08/10/2023 Core Measures - DVT/VTE - Prophylaxis VTE/DVT Device ordered at admit?: No VTE/DVT Prophylaxis med ordered at admit?: Yes
[2024-04-27] MEDS: SODIUM CHLORIDE 0.9% 1,000 ML IV SCH (17:26)
[2024-04-27] MEDS: SODIUM CHLORIDE FLUSH 0.9% 10 ML SYRINGE IVP SCH (17:26)
--- NOTE | 2024-04-27 17:41 | PHARMACY PROGRESS NOTE ---
- Best Possible Medication History Admit Date and Time: 04/27/24 1558 Processed by: Pharmacy Medications reviewed in ED?: Yes Medication History completed: Yes Patient Interview: Pt unable to participate Secondary Source(s): Pharmacy records, Insurance records (Medication Reconciliation completed by Vehicle Leasing And Rental ManagerLucy) As the person ultimately responsible for medication therapy, providers are able to order a medication from an existing home medication list in [facility] via the "Reconcile Routine" prior to Confirmation of that medication by security support analyst. Such practice is discouraged except when the physician, in their clinical judgment, deems that a medical need exists for a medication without regard to previous use.
[2024-04-27] MEDS ORDERED: [UNRECOGNIZED DRUG - OTHER] PO PRN (18:44)
[2024-04-27] MEDS ORDERED: ACETAMINOPHEN PO PRN (18:44)
[2024-04-27] MEDS ORDERED: ASPIRIN PO PRN (18:44)
[2024-04-27] MEDS ORDERED: CAFFEINE PO PRN (18:44)
[2024-04-27] MEDS: QUEtiapine 25 MG TABLET PO SCH (21:38)
[2024-04-27] MEDS: METOPROLOL SUCCINATE 25 MG TABLET PO SCH (21:38)
[2024-04-27] MEDS: HEPARIN 5,000 UNIT/ML VIAL SUBQ SCH (21:39)
[2024-04-27] MEDS: LATANOPROST 0.005% EACHEYE SCH (21:40)
[2024-04-27] MEDS: OLANZapine 10 MG VIAL IM ONE (22:34)
[2024-04-28 05:36] LABS: BASOPHILS % (AUTO) 0.4 %; EOSINOPHILS # (AUTO) 0.1 10^3/uL (0.0-0.7); EOSINOPHILS % (AUTO) 1.2 %; HGB - HEMOGLOBIN 11.7 g/dL (12.0-16.0); LYMPHOCYTES # (AUTO) 0.5 10^3/uL (1.5-3.5); MEAN CORPUSCULAR HEMOGLOBIN 32.9 pg (27.0-31.0); MEAN CORPUSCULAR HGB CONC 33.4 g/dL (32.0-36.0); MEAN CORPUSCULAR VOLUME 98.3 fL (81.0-99.0); MEAN PLATELET VOLUME 10.5 fL (7.9-10.8); MONOCYTES # (AUTO) 0.5 10^3/uL (0.0-1.0); MONOCYTES % (AUTO) 10.9 %; NEUTROPHILS # (AUTO) 3.8 10^3/uL (1.5-6.6); NEUTROPHILS % (AUTO) 77.3 %; PLT - PLATELET COUNT 169 10^3/uL (130-450); RED BLOOD COUNT 3.56 10^6/uL (4.20-5.40); RED CELL DISTRIBUTION WIDTH 15.1 % (12.0-15.0); WHITE BLOOD COUNT 4.9 x10^3/uL (4.8-10.8)
[2024-04-28 05:52] LABS: CALCIUM 9.1 mg/dL (8.5-10.3); CREATININE 1.9 mg/dL (0.6-1.3); POTASSIUM 3.7 mmol/L (3.5-4.5)
[2024-04-28] MEDS: LEVOTHYROXINE 112 MCG TABLET PO SCH (06:19)
[2024-04-28] MEDS ORDERED: ENOXAPARIN 40 MG/0.4 ML SYRINGE SUBQ SCH (09:00)
[2024-04-28] MEDS: BRIMONIDINE 0.2% OPHTH DROPS 5 ML EACHEYE SCH (09:15)
[2024-04-28] MEDS: QUEtiapine 25 MG TABLET PO SCH (10:09)
[2024-04-28] MEDS: TIMOLOL 0.5% OPHTH DROPS EACHEYE SCH (10:10)
[2024-04-28] MEDS: SODIUM CHLORIDE 0.45% 1,000 ML IV SCH (10:44)
--- NOTE | 2024-04-28 12:04 | PROVIDER PROGRESS NOTE ---
Progress Note April 28, 2024 11:50 AM She keeps on pulling the telemetry leads off. She closes her mouth and does not want people to put anything in her mouth. She refuses to have her blood pressure done. But she has not become aggressive with the nurses. She is not kicking, pulling or biting. Has been warned is that she can be a behavioral issue. And has given permission to do restraints if I have to. Not much more history ever since she is nonverbal. Her is at the bedside and he update me with her code status. he has a POLST at home and she is a DNR. Active Medications Acetaminophen (Acetaminophen 325 Mg Tablet) 650 mg PO Q4HR PRN PRN Reason: Pain 1 to 4, or Fever Brimonidine Tartrate (Brimonidine 0.2% Ophth Drops 5 Ml) 1 drops EACHEYE BID [facility] Heparin Sodium (Porcine) (Heparin 5,000 Unit/Ml Vial) 5,000 unit SUBQ BID [facility] Last Admin: 04/28/24 10:12 Dose: 5,000 unit Sodium Chloride (Normal Saline 0.45%) 1,000 mls @ 100 mls/hr IV .Q10H [facility] Last Admin: 04/28/24 10:44 Dose: 100 mls/hr Levothyroxine Sodium (Levothyroxine 112 Mcg Tablet) 112 mcg PO QDAC [facility] Last Admin: 04/28/24 06:19 Dose: Not Given Metoprolol Succinate (Metoprolol Succinate 25 Mg Tablet) 12.5 mg PO BID [facility] Last Admin: 04/28/24 10:09 Dose: 12.5 mg Ondansetron HCl (Ondansetron Odt 4 Mg Tablet) 4 mg TL Q6HR PRN PRN Reason: Nausea / Vomiting Ondansetron HCl (Ondansetron 4 Mg/2 Ml Vial) 4 mg IVP Q6HR PRN PRN Reason: Nausea / Vomiting Oxycodone HCl (Oxycodone 5 Mg Tablet) 5 mg PO Q4HR PRN PRN Reason: Pain 5 to 7 Patient Own Med ( Latanoprost 0.005% Ophth Drops) 1 each EACHEYE QPM [facility] Last Admin: 04/27/24 21:40 Dose: Not Given Quetiapine Fumarate (Quetiapine 25 Mg Tablet) 75 mg PO QPM [facility] Last Admin: 04/27/24 22:39 Dose: Not Given Quetiapine Fumarate (Quetiapine 25 Mg Tablet) 37.5 mg PO DAILY [facility] Last Admin: 04/28/24 10:09 Dose: 37.5 mg Sodium Chloride (Sodium Chloride Flush 0.9% 10 Ml Syringe) 10 ml IVP PRN PRN PRN Reason: NEEDED PER PROVIDER ORDERS Sodium Chloride (Sodium Chloride Flush 0.9% 10 Ml Syringe) 10 ml IVP 0100,0900,1700 [facility] Last Admin: 04/28/24 10:10 Dose: 10 ml Timolol Maleate (Timolol 0.5% Ophth Drops) 1 drops EACHEYE DAILY [facility] Last Admin: 04/28/24 10:10 Dose: 1 drops Home Meds: Atorvastatin [Lipitor] 20 mg PO DAILY 04/09/14 Brimonidine 0.2% Ophth Drops [Alphagan P 0.2% Ophth Drops] 1 drops EACHEYE BID 08/10/23 Latanoprost 0.005% Ophth Drops [Xalatan Ophth Drops] 1 drops EACHEYE QPM 08/10/23 Levothyroxine Sodium [Synthroid] 112 mcg PO QDAC 08/10/23 Quetiapine Fumarate [Seroquel] 75 mg PO QPM 08/10/23 Aspirin/Acetaminophen/Caffeine [Gnp Headache [id number] Cplt] 1 each PO DAILY PRN 04/27/24 Calcium Carbonate [Calcium] 600 mg PO BID 04/27/24 Cholecalciferol [Vitamin D3] 25 mcg PO DAILY 04/27/24 Potassium Chloride [Klor-Con 10] 20 meq PO DAILY 04/27/24 QUEtiapine [SEROquel] 37.5 mg PO DAILY 04/27/24 Timolol Maleate/Pf [Timolol Maleate 0.5% Eye Drop] 1 drops EACHEYE DAILY 04/27/24 amLODIPine [Norvasc] 5 mg PO DAILY 04/27/24 Exam: Temperature is 37.1. Heart rate 67. Blood pressure 142/82. Respirations 18. 92% on room air. An elderly female who is disheveled, with numerous black tarry excoriations on her legs and arms where she fell down and lay in shrubbery overnight. But none of the skin areas seem to be infected. Facial symmetry is present. Orbital fossa with no step-off. Slightly dry lips and oral mucosa in spite of IV fluids. Neck is supple without adenopathy Lungs are clear. No tachypnea or tachycardia or use of accessory muscles Regular rate and rhythm with a systolic ejection murmur. And diastolic murmur Abdomen is soft, nontender, hypoactive bowel sounds Ext without edema but legs covered in the scratches from falling Disoriented, nonverbal, but resists care. Laboratory Tests 04/27/24 04/27/24 04/28/24 13:29 18:28 05:14 WBC 4.9 Hgb 11.7 L Hct 35.0 L Plt Count 169 Sodium Potassium Chloride BUN Creatinine Estimated GFR (MDRD) Troponin I High Sens 73.3 H* 62.1 H* 04/28/24 04/28/24 05:14 05:14 WBC Hgb Hct Plt Count Sodium 141 Potassium 3.7 Chloride 112 H BUN 39 H Creatinine 1.9 H Estimated GFR (MDRD) 25 L Troponin I High Sens 74.9 H* Assessment/Plan (1) KARLY (acute kidney injury) Conclusion/Plan: KARLY due to traumatic rhabdomyolisis and dehydration after prolonged downtime outside BUN and creat are improving 50>39, 2.6>1.9 but chloride rising. Continue to treat with IVF but I will change to 0.45 NS from 0.9 NS I will check BMP tomorrow DC IVF once labs to baseline. WE will continue to encourage her to eat. Home once IVF stopped. (2) Rhabdomyolysis Conclusion/Plan: Traumatic rhabdomyolysis after fall down 30 foot embankment with prolonged downtime outside up to 14 hrs. Creatinine kinase 882, lactate 1.1 on admit. I will follow with labs for today and tomorrow. Pending right now. Qualifiers: Rhabdomyolysis type: traumatic Encounter type: initial encounter Qualified Code(s): T79.6XXA - Traumatic ischemia of muscle, initial encounter (3) UTI (urinary tract infection) Conclusion/Plan: reports incontinence with strong odor, increasing over the past 3 months. UA shows WBC>25, many bacteria, and small leukocyte esterase. Treat with rocephin. Today is Day #2/5 (4) Troponin level elevated Conclusion/Plan: Troponin elevated at 73.3. Laboratory Tests 04/27/24 04/27/24 04/28/24 13:29 18:28 05:14 Troponin I High Sens 73.3 H* 62.1 H* 74.9 H* So she is with stable changes indicative of Type 1 and not NSTEMI. This may be due to the aortic stenosis I hear and which was documented with a bedside echo on her last admit. I will not be treating this other than to follow. (5) Fall Conclusion/Plan: Found down a 30 foot embankment with brush, appears to have fallen over low rabbit fence with brush breaking fall, unwitnessed. Multiple superficial lacerations on hands, legs and feet. CT head and neck negative for ICH or fx, chest x-ray negative for fx. Observe for signs or reports of pain. Treat pain as needed. Qualifiers: Encounter type: initial encounter Qualified Code(s): W19.XXXA - Unspecified fall, initial encounter (6) Heart failure due to valvular disease Conclusion/Plan: Hx of diastolic HFpEF with severe , MR, MS, TR, long-term murmur: Monitor for fluid overload, hold home meds until rhabdo resolved, resume once stable. Echo ordered but I am using the data for prognostication. I do not plan on referring her for TAVR. if the stenosis is severe, consider HOspice. (7) Dementia with behavioral disturbance Conclusion/Plan: Hx of demenita with behavioral disturbance and physcial agitation: Keep bed low, bed alarm, quetiapine home quetiapine of 37.5mg in the am and 75 mg in the evening, soft restraints if needed. So far she has not needed restraints.
[2024-04-28] MEDS: MULTIVITAMIN W/MINERALS TABLET PO SCH (17:23)
[2024-04-29 05:38] LABS: BASOPHILS % (AUTO) 0.6 %; EOSINOPHILS # (AUTO) 0.1 10^3/uL (0.0-0.7); EOSINOPHILS % (AUTO) 2.4 %; HCT - HEMATOCRIT 37.2 % (37.0-47.0); HGB - HEMOGLOBIN 12.2 g/dL (12.0-16.0); LYMPHOCYTES # (AUTO) 0.6 10^3/uL (1.5-3.5); LYMPHOCYTES % (AUTO) 12.7 %; MEAN CORPUSCULAR HEMOGLOBIN 32.8 pg (27.0-31.0); MEAN CORPUSCULAR HGB CONC 32.8 g/dL (32.0-36.0); MEAN PLATELET VOLUME 10.4 fL (7.9-10.8); MONOCYTES # (AUTO) 0.4 10^3/uL (0.0-1.0); NEUTROPHILS # (AUTO) 3.8 10^3/uL (1.5-6.6); NEUTROPHILS % (AUTO) 75.9 %; PLT - PLATELET COUNT 157 10^3/uL (130-450); RED BLOOD COUNT 3.72 10^6/uL (4.20-5.40); RED CELL DISTRIBUTION WIDTH 15.4 % (12.0-15.0)
[2024-04-29 05:55] LABS: CALCIUM 8.8 mg/dL (8.5-10.3); CREATININE 1.6 mg/dL (0.6-1.3); POTASSIUM 3.8 mmol/L (3.5-4.5)
--- NOTE | 2024-04-29 07:42 | Discharge Plan ---
Discharge Plan Problem Reviewed?: Yes Disposition: 50 Hospice/Home DC/Xfer Condition: Fair Diet: Regular Activity Restrictions: Activity as Tolerated Shower Restrictions: No Driving Restrictions: Yes (no driving) Instruction Topics: Heart Valve Stenosis, Aortic Stenosis Ch Health Concerns: This discharge note is being dictated with regards to the fact that she has dementia, and her is her DURABLE POWER OF DIVISIONAL MERCHANDISING MANAGER and guardian. She has slowly progressed with her dementia and he has been barricading her in her room at night to keep her from wandering out of the house. In spite of that she has managed to get out of the house. This is the third time. He last saw her at 9 PM last night. After waking up this morning and finding her gone, there was a [employer] party sent out. And she was found in a small ravine near her house. She was brought to the emergency room where she was found to be dehydrated, mild rhabdomyolysis, and acute kidney injury. She was mute. Stiff. But once she started getting IV fluids, her kidney function improved and the patient is gradually returning to her baseline. Unfortunately her baseline is that of a dementia patient who recognizes no one. She does not recognize her by name but is comforted by his presence. She has been refusing to eat here. Taking off her telemetry leads. We try to get an echocardiogram because she has a history of severe aortic stenosis on a bedside echo done with her last admission. She refused to let the [facility] do an echocardiogram. Advance care planning conversation was held with her . He asked numerous questions about her condition and her treatment. He does feel that giving her IV fluids and antibiotics is the most he would want done for her. If she had to go to the ICU with pressor agents, BiPAP or intubation he would not have wanted that. As such we filled out a POLST form and show patient is a DO NOT RESUSCITATE with focus on comfort measures. He plans on taking care of her himself. Finances are such that he cannot afford to have anybody come help him take care of her. I have suggested hospice as an option. He is very concerned that we will keep her here against her will or his well. I reassured him that this is not present. He can take his home at any time he desires. He is also concerned about the cost of hospitalization since he feels that his co-pay is $365 a day through [employer]. Will try to discharge her on April 29. However the became alarmed because his was bedbound. Did not want to get out of bed. Was no longer ambulatory as she had been in the past. But at the same time was refusing to work with physical therapy. He felt overwhelmed with all the decisions he had t o make. He is also very concerned about the finances of all of this. I discussed 3 options with him. 1. Take her home as is. Understanding that she would be completely bedbound and he would have to physically take care of her with regards to logrolling, changing her diaper, and feeding her. 2. Same as #1 but hire caregivers to help him. 3. [place] and a long-term facility/memory care unit for permanent placement and anticipated eventual deterioration to in the next few weeks to months. 4. Take her home under hospice benefit. He is worried that he would not be able to bring her back to the hospital if he wanted to come back to the hospital. I explained that is the intent of hospice. That we want the patient to pass away peacefully at their own home being made comfortable by what ever medications we could give her. That she should not be brought back to the hospital for things such as urinary tract infections, pneumonia, or falls out of bed. And he would have the help of nursing from hospice. He still may have to hire caregivers to help take care of her. I had a very long conversation with the patient's daughter as well. Gema Mcgrath at [phone] has moved from [place] and is now living in [place]. Daughter was brought up-to-date. Understands the options. And will endorse what ever her father decides but if he decides to go with option #1 she is very concerned about his ability to take care of her by himself. decided to take her home with hospice and as such we are discharging her to hospice. Plan of Treatment: 1. She was given fosfomycin on the day of discharge for a urine culture that grew out E. coli 2. She is being discharged to return to her 's care in their own home with Hospice. Care Goals: Remain in her own home for as long as possible under the care of her . Goals of care at this time to allow her to pass away at home under the care of her . Assessment: patient is disoriented to person, place, time and situation. While she does not recognize her by name or as her , she does recognize his presence and is comforted by it. No Smoking: If you smoke, Please STOP! Call for help. Follow-up with: Sylvia Rosales MD [Primary Care Provider] -
--- NOTE | 2024-04-29 07:49 | DISCHARGE SUMMARY ---
Discharge Summary Admit Date: 04/27/24 Discharge Date: 04/30/24 Discharging Provider: Kandi Mcleod MD Primary Care Provider: Sylvia Bailey MD [place] Code Status: Do Not Attempt Resuscitation Condition at Discharge: Fair Discharge Disposition: 50 Hospice/Home DC/Xfer - DIAGNOSES Discharge Diagnoses with Status of Each Condition: 1. acute kidney injury 2. Dehydration 3. Rhabdomyolysis 4. Fall down embankment 5. Dementia with behavioral disturbance 6. Severe aortic stenosis 7. Elevated troponins - HPI History of Present Illness: This is an 84-year-old patient with advanced dementia brought in by after he found her after an apparent fall. He last saw her at about 9:00 last night when he went to bed this morning he got up and was looking for her and could not find her when outside and eventually found her at the bottom of a 30 foot hill slope she had apparently slipped and fallen and fell through some bushes. She arrives moving all extremities but with an incredible number of excoriations and scratches on her lower extremities presumably from these bushes. She is unable to provide any history. On clear how long she was stuck on the side of the hill. describes that she has been urinating more frequently, increasing over the past 3 months, indiscriminately, and that it "smells really bad". She lives with her in a private home and he is her primary caregiver. states this is the third time she has left the house and the second time he has called 911 to find her. He states she has been lying on the ground and pushing herself around with her feet recently and sleeping on the floor. He secures her in her room at night by blocking the exit with an open door and tying it so she can't exit. He sleep upstairs and is not sure how much she is up at night. He sues duarte to prevent her from going into certain rooms or upstairs. He does not have a house alarm and states neighbors help him watch her sometimes if he has to leave. He has no family locally. - Past Medical History Past Medical History: Yes Cardiovascular: Hypertension, High cholesterol, Murmur, aortic stenosis, diastol ic HFpEF Respiratory: None Neuro: Alzhiemer's, Dementia Endocrine/Autoimmune: HyPOthyroidism s/p partial thryoidectomy for thyroid cancer GI: Gallbladder cancer FRONT TENDER: None : Other HEENT: Glaucoma, cataracts Psych: None Musculoskeletal: Osteoarthritis Derm: Shingles - Past Surgical History Past Surgical History: Yes HEENT: cataract removal, unk which eye Left wrist surgery for fx Partial thyroidectomy - CONSULTS | PROCEDURES Procedures: Chest x-ray with mild to moderate diffuse lung disease representing underlying senescent changes versus fibrosis versus atypical infection versus edema Head CT without acute intracranial hemorrhage or subdural Cervical spine CT there is superior endplate deformity T2 age-indeterminate. No traumatic subluxation. Urine culture with E. coli - HOSPITAL COURSE Hospital Course: This discharge note is being dictated with regards to the fact that she has dementia, and her is her DURABLE POWER OF ASSISTANT TECHNICIAN and guardian. She has slowly progressed with her dementia and he has been barricading her in her room at night to keep her from wandering out of the house. In spite of that she has managed to get out of the house. This is the third time. He last saw her at 9 PM last night. After waking up this morning and finding her gone, there was a surge green party sent out. And she was found in a small ravine near her house. She was brought to the emergency room where she was found to be dehydrated, mild rhabdomyolysis, and acute kidney injury. She was mute. Stiff. But once she started getting IV fluids, her kidney function improved and the patient is gradually returning to her baseline. Unfortunately her baseline is that of a dementia patient who recognizes no one. She does not recognize her by name but is comforted by his presence. She has been refusing to eat here. Taking off her telemetry leads. We try to get an echocardiogram because she has a history of severe aortic stenosis on a bedside echo done with her last admission. She refused to let the tech do an echocardiogram. Advance care planning conversation was held with her . He asked numerous questions about her condition and her treatment. He does feel that giving her IV fluids and antibiotics is the most he would want done for her. If she had to go to the ICU with pressor agents, BiPAP or intubation he would not have wanted that. As such we filled out a POLST form and show patient is a DO NOT RESUSCITATE with focus on comfort measures. He plans on taking care of her himself. Finances are such that he cannot afford to have anybody come help him take care of her. I have suggested hospice as an option. He is very concerned that we will keep her here against her will or his well. I reassured him that this is not present. He can take his home at any time he desires. He is also concerned about the cost of hospitalization since he feels that his co-pay is $365 a day through [employer]. Will try to discharge her on April 29. However the became alarmed because his was bedbound. Did not want to get out of bed. Was no longer ambulatory as she had been in the past. But at the same time was refusing to work with physical therapy. He felt overwhelmed with all the decisions he had to make. He is also very concerned about the finances of all of this. I discussed 3 options with him. 1. Take her home as is. Understanding that she would be completely bedbound and he would have to physically take care of her with regards to logrolling, changing her diaper, and feeding her. 2. Same as #1 but hire caregivers to help him. 3. [place] and a fdc facility/memory care unit for permanent placement and anticipated eventual deterioration to in the next few weeks to months. 4. Take her home under hospice benefit. He is worried that he would not be able to bring her back to the hospital if he wanted to come back to the hospital. I explained that is the intent of hospice. That we want the patient to pass away peacefully at their own home being made comfortable by what ever medications we could give her. That she should not be brought back to the hospital for things such as urinary tract infections, pneumonia, or falls out of bed. And he would have the help of nursing from hospice. He still may have to hire caregivers to help take care of her. I had a very long conversation with the patient's daughter as well. Gema Mcgrath at [phone] has moved from [place] and is now living in [place]. Daughter was brought up-to-date. Understands the options. And will endorse what ever her father decides but if he decides to go with option #1 she is very concerned about his ability to take care of her by himself. decided to take her home with hospice and as such we are discharging her to hospice. Plan of Treatment: 1. She was given fosfomycin on the day of discharge for a urine culture that grew out E. coli 2. She is being discharged to return to her 's care in their own home with Hospice. Care Goals: Remain in her own home for as long as possible under the care of her . Goals of care at this time to allow her to pass away at home under the care of her . Assessment: patient is disoriented to person, place, time and situation. While she does not recognize her by name or as her , she does recognize his presence and is comforted by it. Discharge exam had a Temperature 37. Heart rate 98. Blood pressure 141/103. 92% on room air. She is 5 feet 3 inches tall and 60.5 kg. In looking at her weight in 2013 she was 58 kg so she is maintaining her nutrition under the assiduous loving care of her . Disoriented. Has no ability to communicate orientation to person, place, time or situation. She is elderly appearing, frail. Disheveled. Neck is supple. Lungs have bibasilar crackles that clear with cough and come and go. Regular rate and rhythm with severe systolic ejection murmur. Abdomen is soft with hypoactive bowel sounds. She had an episode of urinary retention requiring straight cath yesterday. Extremities have minimal edema. She is moving all extremities spontaneously. but unable to have any meaningful conversation. Lips are clenched shut. Refuses food. Arms are crossed across her chest and she refuses to let me examine her heart, belly very well. It is a struggle. Greater than 30 minutes was spent coordinating discharge This document was made in part using voice recognition software. While efforts are made to proofread this document, sound alike and grammatical errors may occur. - ALLERGIES Allergies/Adverse Reactions: Allergies Allergy/AdvReac Type Severity Reaction Status Date / Time Penicillins Allergy Rash Verified 04/27/24 17:46 Sulfa (Sulfonamide Allergy Cramps Verified 04/27/24 17:46 Antibiotics) - MEDICATIONS Home Medications: Ambulatory Orders Medication Instructions Recorded Confirmed Atorvastatin [Lipitor] 20 mg PO DAILY 04/09/14 04/27/24 Brimonidine 0.2% Ophth Drops 1 drops EACHEYE BID 08/10/23 04/27/24 [Alphagan P 0.2% Ophth Drops] Latanoprost 0.005% Ophth Drops 1 drops EACHEYE QPM 08/10/23 04/27/24 [Xalatan Ophth Drops] Levothyroxine Sodium [Synthroid] 112 mcg PO QDAC 08/10/23 04/27/24 Quetiapine Fumarate [Seroquel] 75 mg PO QPM 08/10/23 04/27/24 Furosemide [Lasix] 20 mg PO DAILY #30 tablet 08/11/23 04/27/24 Metoprolol Succinate [Toprol Xl] 12.5 mg PO BID #30 tab 08/11/23 04/27/24 Aspirin/Acetaminophen/Caffeine 1 each PO DAILY PRN 04/27/24 04/27/24 [Gnp Headache [id number] Cplt] Calcium Carbonate [Calcium] 600 mg PO BID 04/27/24 04/27/24 Cholecalciferol [Vitamin D3] 25 mcg PO DAILY 04/27/24 04/27/24 Potassium Chloride [Klor-Con 10] 20 meq PO DAILY 04/27/24 04/27/24 QUEtiapine [SEROquel] 37.5 mg PO DAILY 04/27/24 04/27/24 Timolol Maleate/Pf [Timolol 1 drops EACHEYE DAILY 04/27/24 04/27/24 Maleate 0.5% Eye Drop] amLODIPine [Norvasc] 5 mg PO DAILY 04/27/24 04/27/24 - LABS Result Diagrams: 04/30/24 04:48 04/30/24 04:48 - SEPSIS Current Stage of Sepsis: Ruled out (Elevated RR with UTI, WBC, BP, HR and temp all normal)
[2024-04-29] MEDS: FOSFOMYCIN TROMETHAMINE 3 GM PACKET PO ONE (08:05)
[2024-04-29] MEDS: polyethylene glycoL 3350 17 GM PACKET PO SCH (08:27)
--- NOTE | 2024-04-29 10:23 | ADVANCE CARE PLANNING NOTE ---
Advance Care Planning - Planning Encounter Date: 04/28/24 Time: 10:23 Purpose: Establish CODE STATUS and care goals Parties in Attendance: hospitalist and Decisional Capacity of the Patient: unable to participate in care planning. 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 Up until now, his focus has been keeping her at home, keeping her fed, and making sure she is clean and wearing clean close. He recognizes that her dementia continues to be progressive and she does not recognize him anymore. But he still takes her out for drives here on the [place]. A week ago they even drove out to the [place] in [facility] to visit their daughter, son-in-law and grandchild. Their grandson thinks to work with her grandmother and he was in tears as he walked her back to the car for the return home. Because his grandmother does not recognize him. But he has never talked about end-of-life care with anyone. He knows that they have thought that maybe she should be in a memory care unit but he does not know what finances are going to put together for that. He would have to sell his house. Use the money for the memory care unit and most likely he would live in an . These are all vague plans. He and his daughter have never really sat down to formalize a plan or logistics. He also has not thought about resuscitative status. After querying him about what she would want, he knows that she would not want to be living her life this way. He also wonders if she would even want to be alive If she knew how demented she would become.. He also identifies a next-door neighbor, Catracho Wood, who is a surgeon and has a house here on the [address]. Dr. Wood does [facility]. [phone]. He is getting ready to leave tomorrow for the [facility] to do a 6-month c ontract. Dr. Wood also has his check on the patient. She is a hand PT here in the hospital. Her name is Fatmata. Objective/Medical Story: This is an 84-year-old patient with advanced dementia brought in by after he found her after an apparent fall. He last saw her at about 9:00 last night when he went to bed this morning he got up and was looking for her and could not find her when outside and eventually found her at the bottom of a 30 foot hill slope she had apparently slipped and fallen and fell through some bushes. She arrives moving all extremities but with an incredible number of excoriations and scratches on her lower extremities presumably from these bushes. She is unable to provide any history. On clear how long she was stuck on the side of the hill. describes that she has been urinating more frequently, increasing over the past 3 months, indiscriminately, and that it "smells really bad". She lives with her in a private home and he is her primary caregiver. states this is the third time she has left the house and the second time he has called 911 to find her. He states she has been lying on the ground and pushing herself around with her feet recently and sleeping on the floor. He secures her in her room at night by blocking the exit with an open door and tying it so she can't exit. He sleep upstairs and is not sure how much she is up at night. He sues duarte to prevent her from going into certain rooms or upstairs. He does not have a house alarm and states neighbors help him watch her sometimes if he has to leave. He has no family locally. - Past Medical History Past Medical History: Yes Cardiovascular: Hypertension, High cholesterol, Murmur, aortic stenosis, diastolic HFpEF Respiratory: None Neuro: Alzhiemer's, Dementia Endocrine/Autoimmune: HyPOthyroidism s/p partial thryoidectomy for thyroid cancer GI: Gallbladder cancer RADIOLOGY TRANSPORTER: None : Other HEENT: Glaucoma, cataracts Psych: None Musculoskeletal: Osteoarthritis Derm: Shingles - Past Surgical History Past Surgical History: Yes HEENT: cataract removal, unk which eye Left wrist surgery for fx Partial thyroidectomy . She has received IV fluids for her KARLY and rhabdomyolysis. She is improving and opening her eyes. But refusing to eat. Refusing to have to leave the daughter. Will try to do an echocardiogram to assess the severity of her aortic stenosis and she would not let the tech near her. She is retaining urine and we have had to do a straight cath in and out. Goals of Care: At this time, other than her remaining at home for as long as possible, he does not have any goals. He needs to sit and have a conversation with his daughter, publications manager, and primary care provider for his . 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 That was xeroxed and given to the [facility] to be incorporated into the medical record. We also filled out a POLST form. The original was given to him and a copy given to the [facility] to be incorporated into the medical record. Code Status: Do Not Attempt Resuscitation Time spent on advance care plannin minutes
[2024-04-29] MEDS: oxyCODONE 5 MG TABLET PO PRN (11:08)
--- NOTE | 2024-04-29 14:45 | PROVIDER PROGRESS NOTE ---
Progress Note April 29 2024 2:45 PM this morning she is requiring more oxygen. Refusing food. Has already refused [facility]'s attempt at echo. So far she has kept her IVN but does pick at it. Nursing has wrapped up to IV so she does not have access to pulling out. She had urinary retention last night requiring straight cath. Today I am writing for as needed parameters if she has urinary tension again. She is also not able to get out of bed. Her baseline status is to be ambulatory at home. And actually be too impulsive with her ambulation at home. Her states he cannot take her home. As such she is changed his mind about asking us to discharge her and is asking us to keep her until she can be ambulatory. He is worried. Wonders if this could be the beginning of the end for her. Although he is contemplated it, he is never felt that that was really going to happen as soon as it is happening. I told him that I really could not say if this was the beginning of the end but with its passage of time such as every 3 to 4 months he must of realize that his was using ground. He has a lot of decisions to make. Active Medications Acetaminophen (Acetaminophen 325 Mg Tablet) 650 mg PO Q4HR PRN PRN Reason: Pain 1 to 4, or Fever Brimonidine Tartrate (Brimonidine 0.2% Ophth Drops 5 Ml) 1 drops EACHEYE BID [facility] Last Admin: 04/29/24 08:08 Dose: 1 drops Heparin Sodium (Porcine) (Heparin 5,000 Unit/Ml Vial) 5,000 unit SUBQ BID [facility] Last Admin: 04/29/24 08:08 Dose: 5,000 unit Sodium Chloride (Normal Saline 0.45%) 1,000 mls @ 100 mls/hr IV .Q10H [facility] Last Admin: 04/29/24 06:35 Dose: 100 mls/hr Levothyroxine Sodium (Levothyroxine 112 Mcg Tablet) 112 mcg PO QDAC [facility] Last Admin: 04/29/24 06:21 Dose: Not Given Metoprolol Succinate (Metoprolol Succinate 25 Mg Tablet) 12.5 mg PO BID [facility] Last Admin: 04/29/24 08:06 Dose: 12.5 mg Multivitamins/Minerals (Multivitamin W/Minerals Tablet) 1 tab PO DAILYWM [facility] Last Admin: 04/29/24 08:06 Dose: 1 tab Ondansetron HCl (Ondansetron Odt 4 Mg Tablet) 4 mg TL Q6HR PRN PRN Reason: Nausea / Vomiting Ondansetron HCl (Ondansetron 4 Mg/2 Ml Vial) 4 mg IVP Q6HR PRN PRN Reason: Nausea / Vomiting Oxycodone HCl (Oxycodone 5 Mg Tablet) 5 mg PO Q4HR PRN PRN Reason: Pain 5 to 7 Last Admin: 04/29/24 11:08 Dose: 5 mg Patient Own Med ( Latanoprost 0.005% Ophth Drops) 1 each EACHEYE QPM [facility] Last Admin: 04/28/24 20:20 Dose: Not Given Polyethylene Glycol (Polyethylene Glycol 3350 17 Gm Packet) 17 gm PO DAILY [facility] Last Admin: 04/29/24 08:27 Dose: 17 gm Quetiapine Fumarate (Quetiapine 25 Mg Tablet) 75 mg PO QPM [facility] Last Admin: 04/29/24 00:13 Dose: 75 mg Quetiapine Fumarate (Quetiapine 25 Mg Tablet) 37.5 mg PO DAILY [facility] Last Admin: 04/29/24 08:07 Dose: 37.5 mg Sodium Chloride (Sodium Chloride Flush 0.9% 10 Ml Syringe) 10 ml IVP PRN PRN PRN Reason: NEEDED PER PROVIDER ORDERS Sodium Chloride (Sodium Chloride Flush 0.9% 10 Ml Syringe) 10 ml IVP 0100,0900,1700 [facility] Last Admin: 04/29/24 08:07 Dose: 10 ml Timolol Maleate (Timolol 0.5% Ophth Drops) 1 drops EACHEYE DAILY [facility] Last Admin: 04/29/24 08:08 Dose: 1 drops Atorvastatin [Lipitor] 20 mg PO DAILY 04/09/14 Brimonidine 0.2% Ophth Drops [Alphagan P 0.2% Ophth Drops] 1 drops EACHEYE BID 08/10/23 Latanoprost 0.005% Ophth Drops [Xalatan Ophth Drops] 1 drops EACHEYE QPM 08/10/23 Levothyroxine Sodium [Synthroid] 112 mcg PO QDAC 08/10/23 Quetiapine Fumarate [Seroquel] 75 mg PO QPM 08/10/23 Aspirin/Acetaminophen/Caffeine [Gnp Headache [id number] Cplt] 1 each PO DAILY PRN 04/27/24 Calcium Carbonate [Calcium] 600 mg PO BID 04/27/24 Cholecalciferol [Vitamin D3] 25 mcg PO DAILY 04/27/24 Potassium Chloride [Klor-Con 10] 20 meq PO DAILY 04/27/24 QUEtiapine [SEROquel] 37.5 mg PO DAILY 04/27/24 Timolol Maleate/Pf [Timolol Maleate 0.5% Eye Drop] 1 drops EACHEYE DAILY 04/27/24 amLODIPine [Norvasc] 5 mg PO DAILY 04/27/24 Exam: Temperature 36.6. Heart rate 67. Blood pressure 152/87. Respirations 16. She is 91% on 2 L. On room air she goes down to 82%. In looking at intake and output. Yesterday she had 3485 cc in. No measurement of the straight cath we did. But nursing reports that she had at least 500 cc out with a straight cath. I reduced her IV fluids and today she is 1745 cc and so far. She is eating nothing of her food. An elderly, frail-appearing, disheveled female. Neck is supple. Occasional rhonchi that clear when she coughs. No respiratory distress. She has no tachypnea, use of accessory muscles, tripoding. She is restless and requires one-to-one prompting to keep her in bed and not pulling out her IV. Regular rate and rhythm with a harsh systolic ejection murmur Abdomen is soft, nontender Extremities without edema. The skin of her legs and arms where she had multiple scratches from all the Radha's after falling down the embankment are healed, dry. Neurologically she has no focal deficits, no facial asymmetry, but is essentially mute. She is not speaking. She does open her eyes and look at you. She actively resists skin care. The [facility] is not allowed to do her echo. She does move her legs spontaneously. Assessment/Plan (1) New Hypoxemia New this admission. Unclear why since her intake and output is not that posit charity. In fact a little negative. Will recheck chest x-ray to make sure she is not developing pneumonia. Has been intended for her to be discharged today. He is quite adamant that he did not want her kept any longer due to his concern that she does not do well in a strange apartment. He is also worried about the $365 a day charge the [facility] charges for you to be in the hospital. I told him that I really do not think that was the case with regards to [facility] and he really need to call the insurance company to make sure that his alarm was warranted. (2) KARLY (acute kidney injury) Conclusion/Plan: KARLY due to traumatic rhabdomyolisis and dehydration after prolonged downtime outside BUN and creat are improving from admit. I changed from NS to 0.45NS yesterday due to the rise in chloride, but chloride unchanged. Not higher, but still high. Laboratory Tests 04/28/24 04/29/24 05:14 05:19 Chloride 112 H 112 H BUN 39 H 30 H Creatinine 1.9 H 1.6 H Continue to treat with IVF 0.45 NS I will check BMP tomorrow DC IVF once labs to baseline. We will continue to encourage her to eat. I will cancel her discharge since her oxygen requirement is higher and she can't get out of bed. Home once IVF stopped AND she is able to ambulate to baseline. (3) Rhabdomyolysis, mild, resolved. Conclusion/Plan: Traumatic rhabdomyolysis after fall down 30 foot embankment with prolonged downtime outside up to 14 hrs. Creatinine kinase 882, lactate 1.1 on admit. Laboratory Tests 04/27/24 04/28/24 04/29/24 13:29 05:14 05:19 Total Creatine Kinase 882 H 785 H 587 H Qualifiers: Rhabdomyolysis type: traumatic Encounter type: initial encounter Qualified Code(s): T79.6XXA - Traumatic ischemia of muscle, initial encounter (4) UTI (urinary tract infection) Conclusion/Plan: reports incontinence with strong odor, increasing over the past 3 months. UA shows WBC>25, many bacteria, and small leukocyte esterase. I had thought to order rocephin, but I didn't. So today I have ordered a once time dose of fosfomycin for E coli seen on culture. (5) Troponin level elevated Conclusion/Plan: Troponin elevated at 73.3. Laboratory Tests 04/27/24 04/27/24 04/28/24 13:29 18:28 05:14 Troponin I High Sens 73.3 H* 62.1 H* 74.9 H* So she is with stable changes indicative of Type 1 and not NSTEMI. This may be due to the aortic stenosis I hear and which was documented with a bedside echo on her last admit. I will not be treating this other than to follow. (6) Fall Conclusion/Plan: Found down a 30 foot embankment with brush, appears to have fallen over low rabbit fence with brush breaking fall, unwitnessed. Multiple superficial lacerations on hands, legs and feet. CT head and neck negative for ICH or fx, chest x-ray negative for fx. Observe for signs or reports of pain. Treat pain as needed. 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 Echo ordered but I am using the data for prognostication. I was not planning on referring her for TAVR. if the stenosis is severe, consider HOspice. Refused to let the communications technician do the echo. In discussing this with her , I tell him that this may be the reason she is declining more quickly. However, I cannot be quite sure of this and he should have a conversation with her reel blade bender furnace tender if possible. I would love to talk to myself but unfortunate this gentleman also seems to have memory loss and cannot remember the name of the reel blade bender furnace tender. (8) Dementia with behavioral disturbance Conclusion/Plan: Hx of demenita with behavioral disturbance and physcial agitation: Keep bed low, bed alarm, quetiapine home quetiapine of 37.5mg in the am and 75 mg in the evening, soft restraints if needed. So far she has not needed restraints.
[2024-04-30 05:17] LABS: BASOPHILS % (AUTO) 0.5 %; EOSINOPHILS # (AUTO) 0.1 10^3/uL (0.0-0.7); EOSINOPHILS % (AUTO) 1.6 %; HCT - HEMATOCRIT 38.5 % (37.0-47.0); HGB - HEMOGLOBIN 12.9 g/dL (12.0-16.0); LYMPHOCYTES # (AUTO) 0.6 10^3/uL (1.5-3.5); LYMPHOCYTES % (AUTO) 9.8 %; MEAN CORPUSCULAR HEMOGLOBIN 33.2 pg (27.0-31.0); MEAN CORPUSCULAR HGB CONC 33.5 g/dL (32.0-36.0); MEAN PLATELET VOLUME 10.5 fL (7.9-10.8); MONOCYTES # (AUTO) 0.6 10^3/uL (0.0-1.0); MONOCYTES % (AUTO) 9.2 %; NEUTROPHILS # (AUTO) 4.9 10^3/uL (1.5-6.6); NEUTROPHILS % (AUTO) 78.4 %; PLT - PLATELET COUNT 174 10^3/uL (130-450); RED BLOOD COUNT 3.89 10^6/uL (4.20-5.40); RED CELL DISTRIBUTION WIDTH 15.2 % (12.0-15.0); WHITE BLOOD COUNT 6.2 x10^3/uL (4.8-10.8)
[2024-04-30 05:34] LABS: CALCIUM 8.9 mg/dL (8.5-10.3); CREATININE 1.4 mg/dL (0.6-1.3); POTASSIUM 3.8 mmol/L (3.5-4.5)
[2024-04-30 13:21] VITALS: BP 141/103; O2SAT 92
== END 2024-04-30 18:47 | disposition hospice, home (50) | DRG 683 ==
LOC: ED 12:41 → MS2 15:58
PROVIDERS: ADMIT Specialist; ATTEND Specialist
DX: N17.9 Acute kidney failure, unspecified (principal); I21.4 Non-ST elevation (NSTEMI) myocardial infarction; F03.90 Unspecified dementia, unspecified severity, without behavioral disturbance, psychotic disturbance, mood disturbance, and anxiety; S80.811A Abrasion, right lower leg, initial encounter; S80.812A Abrasion, left lower leg, initial encounter; F02.818 Dementia in other diseases classified elsewhere, unspecified severity, with other behavioral disturbance; I50.32 Chronic diastolic (congestive) heart failure; I44.0 Atrioventricular block, first degree; R82.998 Other abnormal findings in urine; N39.0 Urinary tract infection, site not specified; E86.0 Dehydration; E78.00 Pure hypercholesterolemia, unspecified; I11.0 Hypertensive heart disease with heart failure; G30.9 Alzheimer's disease, unspecified; E89.0 Postprocedural hypothyroidism; T79.6XXA Traumatic ischemia of muscle, initial encounter; S61.412A Laceration without foreign body of left hand, initial encounter; S61.411A Laceration without foreign body of right hand, initial encounter; S81.812A Laceration without foreign body, left lower leg, initial encounter; S81.811A Laceration without foreign body, right lower leg, initial encounter; S91.312A Laceration without foreign body, left foot, initial encounter; S91.311A Laceration without foreign body, right foot, initial encounter; W17.81XA Fall down embankment (hill), initial encounter; Y92.017 Garden or yard in single-family (private) house as the place of occurrence of the external cause; I08.3 Combined rheumatic disorders of mitral, aortic and tricuspid valves; R09.02 Hypoxemia; R32 Unspecified urinary incontinence; R33.9 Retention of urine, unspecified; R35.0 Frequency of micturition; R79.89 Other specified abnormal findings of blood chemistry; Z66 Do not resuscitate; Z74.01 Bed confinement status; Z79.890 Hormone replacement therapy; Z79.899 Other long term (current) drug therapy; Z85.09 Personal history of malignant neoplasm of other digestive organs; Z85.850 Personal history of malignant neoplasm of thyroid; Z91.83 Wandering in diseases classified elsewhere
CPT/HCPCS: 36415; 51701; 70450; 71045; 72125; 80048; 80053; 81001; 82550; 84484; 85025; 87077; 87086; 87181; 93005; 96360; 96361; 99284; 99285; A9270; J8499; 81003

== ENCOUNTER 2024-05-19 14:49 | Outpatient (CLI) | payer MEDICARE | END 2024-05-19 14:50 | disposition critical access hospital (66) | LOC: EMS 14:49 | DX: M54.9 Dorsalgia, unspecified (principal); W10.9XXA Fall (on) (from) unspecified stairs and steps, initial encounter; Z91.81 History of falling; Y92.009 Unspecified place in unspecified non-institutional (private) residence as the place of occurrence of the external cause | CPT/HCPCS: A0425; A0429 ==

== ENCOUNTER 2024-05-19 15:01 | Emergency (ER) | payer MEDICARE ==
--- NOTE | 2024-05-19 15:13 | ED Physician Documentation ---
PD HPI Fall - Stated complaint Stated Complaint: FALL - History obtained from History obtained from: Patient, Family (spouse.), EMS (they report alert and conversant enroute. head pain. Mid/lower back pain. blanket wrap around neck, no cervical collar.) - History of Present Illness Fall distance: Standing position, Other (flight of steps, stumbles and fell, rolling down 13 steps. Injury to head and back. On landing, the checked pt but could not get her up. She wanted to rest, so lay for few hours. He then was able to get her up, but had pain in back so he called 911.) Injury(ies) location: Head, Back. No: Neck, Chest, Abdomen Pain level max: 4 Pain level now: 4 (in lower back/thoracolumbar area.) Associated symptoms: No: LOC, AMS, Nausea / vomiting Worsens with: Movement, Palpation (lower back) Contributing factors: No: Anticoagulated Similar symptoms before: Has not had sx before PD PAST MEDICAL HISTORY - Past Medical History Cardiovascular: Congestive heart failure (diastolic HFpEF), Hypertension, High cholesterol, Murmur, Valve disorder (, MS, MR, TR), Other Respiratory: None Neuro: Alzhiemer's, Dementia (but still moderately conversant. ) Endocrine/Autoimmune: HyPOthyroidism GI: None, Other (gallbaldder cancer) RECOVERY COORDINATOR: None : Other HEENT: Glaucoma, Other (cataracts) Psych: None Musculoskeletal: Osteoarthritis Derm: Herpes zoster (Recent shingles 2 weeks ago, completed course of valacyclovir, lesions on right groin and upper thigh, healed) - Past Surgical History Past Surgical History: Yes General: Other (partial thryoidectomy) Ortho: Other (left wrist fx ) HEENT: Cataracts Derm: Other - Present Medications Home Medications: Ambulatory Orders Medication Instructions Recorded Confirmed Atorvastatin [Lipitor] 20 mg PO DAILY 04/09/14 04/27/24 Brimonidine 0.2% Ophth Drops 1 drops EACHEYE BID 08/10/23 04/27/24 [Alphagan P 0.2% Ophth Drops] Latanoprost 0.005% Ophth Drops 1 drops EACHEYE QPM 08/10/23 04/27/24 [Xalatan Ophth Drops] Levothyroxine Sodium [Synthroid] 112 mcg PO QDAC 08/10/23 04/27/24 Quetiapine Fumarate [Seroquel] 75 mg PO QPM 08/10/23 04/27/24 Furosemide [Lasix] 20 mg PO DAILY #30 tablet 08/11/23 04/27/24 Metoprolol Succinate [Toprol Xl] 12.5 mg PO BID #30 tab 08/11/23 04/27/24 Aspirin/Acetaminophen/Caffeine 1 each PO DAILY PRN 04/27/24 04/27/24 [Gnp Headache [id number] Cplt] Calcium Carbonate [Calcium] 600 mg PO BID 04/27/24 04/27/24 Cholecalciferol [Vitamin D3] 25 mcg PO DAILY 04/27/24 04/27/24 Potassium Chloride [Klor-Con 10] 20 meq PO DAILY 04/27/24 04/27/24 QUEtiapine [SEROquel] 37.5 mg PO DAILY 04/27/24 04/27/24 Timolol Maleate/Pf [Timolol 1 drops EACHEYE DAILY 04/27/24 04/27/24 Maleate 0.5% Eye Drop] amLODIPine [Norvasc] 5 mg PO DAILY 04/27/24 04/27/24 Acetaminophen [Acetaminophen Extra 500 mg PO QID PRN #50 tablet 05/19/24 Strength] HYDROcod/ACETAM 5/325 [Felt 5/325] 1 ea PO Q6H PRN #14 tablet 05/19/24 - Allergies Allergies/Adverse Reactions: Allergies Allergy/AdvReac Type Severity Reaction Status Date / Time Penicillins Allergy Rash Verified 04/27/24 17:46 Sulfa (Sulfonamide Allergy Cramps Verified 04/27/24 17:46 Antibiotics) - Social History Does the pt smoke?: No Smoking Status: Never smoker Does the pt drink ETOH?: No Does the pt have substance abuse?: No - Immunizations Immunizations are current?: Yes - POLST Patient has POLST: No POLST Status: DNR (Per , they have a DNR document at home) PD ED PE NORMAL - Vitals Vital signs reviewed: Yes - General General: No acute distress, Well developed/nourished. No: Alert and oriented X 3 (to person and place but not time.) - HEENT HEENT: Other (tender back of head) - Neck Neck: Supple, no meningeal sign, No adenopathy, Other (blanket roll loosely on neck, taped in front. Removed as not supporting. Pt is notably kyphotic. ). No: C-Spine cleared by NEXUS criteria (due to age and distracting injuries. ) - Respiratory Respiratory: Clear bilaterally, Other (no chestwall/rib tenderness. ) - Abdomen Abdomen: Soft, Non tender - Back Back: No CVA TTP, Other (tender around the thoracolumbar area. ) - Extremities Extremities: No tenderness to palpate - Neuro Neuro: Alert and oriented X 3, No motor deficit, No sensory deficit Results - Vitals Vitals: Oxygen O2 Source Room air - Labs Labs: Laboratory Tests 05/19/24 05/19/24 15:16 15:16 WBC 5.4 RBC 3.59 L Hgb 12.3 Hct 35.3 L MCV 98.3 MCH 34.3 H MCHC 34.8 RDW 15.5 H Plt Count 208 MPV 10.5 Neut # (Auto) 4.5 Lymph # (Auto) 0.3 L [place] # (Auto) 0.5 Eos # (Auto) 0.0 Baso # (Auto) 0.0 Absolute Nucleated RBC 0.00 Nucleated RBC % 0.0 Sodium 140 Potassium 3.8 Chloride 103 Carbon Dioxide 28 Anion Gap 9.0 BUN 46 H Creatinine 1.7 H Estimated GFR (MDRD) 29 L Glucose 87 Calcium 10.4 H Magnesium 1.9 Total Bilirubin 1.2 H AST 32 ALT 22 Alkaline Phosphatase 62 Total Protein 7.0 Albumin 4.1 Globulin 2.9 Albumin/Globulin Ratio 1.4 Lipase 19 - Rads (name of study) head CT Relevant Findings:: Prelim report reviewed (no ICH nor acute process), EMP independent interpretation of test cervical CT Relevant Findings:: Prelim report reviewed (arthitic changes and kyphosis, no fractures. ), EMP independent interpretation of test trunk CT Relevant Findings:: Prelim report reviewed (no organ injuries. No rib/lung injuries. T3 transverse process nondisplacd fracture. Prior T2 and T5 compression fractures, stable. ground glass appearances in lungs, ? infection. ) PD Medical Decision Making - ED course Complexity details: reviewed results (head CT without problems. Cervial spine no fractures. Trunk CT with T3 transverse process fracture. Old T2 and T5 compression fractures, stable. T2 one on prior images. ground glass appearances in lungs, but pt/spouse deny recent cold/cough.), re-evaluated patient (she was comfortable enough in back for movement. She and spouse felt comfortable and preferrable to go home. ), considered differential, d/w patient, d/w family (spouse), other (I greeted EMS on their arrival and got verbal report. ) Departure - Departure Disposition: 01 Home, Self Care Clinical Impression: Hematoma of back Fall down stairs Qualifiers: Encounter type: initial encounter Qualified Code(s): W10.8XXA - Fall (on) (from) other stairs and steps, initial encounter Head contusion Qualifiers: Encounter type: initial encounter Contusion of head detail: scalp Qualified Code(s): S00.03XA - Contusion of scalp, initial encounter Lumbar transverse process fracture Qualifiers: Encounter type: initial encounter Fracture type: closed Qualified Code(s): S32.009A - Unspecified fracture of unspecified lumbar vertebra, initial encounter for closed fracture Condition: Stable Record reviewed to determine appropriate education?: Yes Instructions: ED Hematoma, ED Fx Transverse Spinous Process Prescriptions: Acetaminophen [Acetaminophen Extra Strength] 500 mg PO QID PRN #50 tablet PRN Reason: Pain HYDROcod/ACETAM 5/325 [Felt 5/325] 1 ea PO Q6H PRN #14 tablet PRN Reason: Pain Comments: We did CT scans of your head neck and trunk. No signs of bleeding or acute injury in the head and no fractures in the neck. You do have local swelling in the forehead outside the cranium. This will be sore and tender. The chest part does not show any acute fractures. There prior compression injuries noted at the second and fifth thoracic vertebrae but are old appearing and had been present in prior images. In the lower back part is a new fracture at the side portion of the third lumbar vertebrae. It does not involve the nerve or cord aspect but a process off to the side (almost like the ribs in the upper part of the back). This is an attachment for muscle and so will be sore with movement. They do note a small blood collection on the side of the back as well (hematoma). This should absorb slowly over the next couple of weeks. Incidentally noted was the hernia that you have. I would suggest some regular use of Tylenol 4 times daily over the next week or 2. Add hydrocodone every 6 hours if needed for worse pain. You do have chronic impairment of the kidney function so would suggest not using much anti-inflammatories. I sent your prescriptions to the [facility] pharmacy. Activity as tolerated. Forms: PCP List Discharge Date/Time: 05/19/24 19:59
[2024-05-19 15:24] LABS: BASOPHILS % (AUTO) 0.6 %; EOSINOPHILS % (AUTO) 0.7 %; HCT - HEMATOCRIT 35.3 % (37.0-47.0); HGB - HEMOGLOBIN 12.3 g/dL (12.0-16.0); LYMPHOCYTES # (AUTO) 0.3 10^3/uL (1.5-3.5); LYMPHOCYTES % (AUTO) 6.3 %; MEAN CORPUSCULAR HEMOGLOBIN 34.3 pg (27.0-31.0); MEAN CORPUSCULAR HGB CONC 34.8 g/dL (32.0-36.0); MEAN CORPUSCULAR VOLUME 98.3 fL (81.0-99.0); MEAN PLATELET VOLUME 10.5 fL (7.9-10.8); MONOCYTES # (AUTO) 0.5 10^3/uL (0.0-1.0); MONOCYTES % (AUTO) 8.8 %; NEUTROPHILS # (AUTO) 4.5 10^3/uL (1.5-6.6); PLT - PLATELET COUNT 208 10^3/uL (130-450); RED BLOOD COUNT 3.59 10^6/uL (4.20-5.40); RED CELL DISTRIBUTION WIDTH 15.5 % (12.0-15.0); WHITE BLOOD COUNT 5.4 x10^3/uL (4.8-10.8)
[2024-05-19] MEDS: SODIUM CHLORIDE 0.9% 1,000 ML IV STA (15:48)
[2024-05-19 15:53] LABS: ALBUMIN 4.1 g/dL (3.2-5.5); ALBUMIN/GLOBULIN RATIO 1.4 (1.0-2.2); BILIRUBIN,TOTAL 1.2 mg/dL (0.2-1.0); CALCIUM 10.4 mg/dL (8.5-10.3); CREATININE 1.7 mg/dL (0.6-1.3); MAGNESIUM 1.9 mg/dL (1.7-2.3); POTASSIUM 3.8 mmol/L (3.5-4.5)
[2024-05-19] MEDS ORDERED: iohexoL-300 100 ML VIAL ONE (15:57)
--- NOTE | 2024-05-19 17:18 | CT Report ---
PROCEDURE: Head WO INDICATIONS: fall with struck head; headache TECHNIQUE: Noncontrast 4.5 mm thick angled axial sections acquired from the foramen magnum to the vertex. For r adiation dose reduction, the following was used: automated exposure control, adjustment of mA and/or kV according to patient size. COMPARISON: 04/27/2024 FINDINGS: Image quality: Excellent. CSF spaces: Basal cisterns are patent. No extra-axial fluid collections. The ventricles are symmet oleksandr in size and shape. Brain: No intracranial bleeds or masses. There is cerebral volume loss for age, with resultant vent ricular and sulcal prominence. There are periventricular and deep white matter chronic small vessel ischemic changes. There is intracranial internal carotid artery atherosclerosis. Skull and face: Right frontal scalp hematoma and swelling is noted Calvarium and visualized facial b ones appear intact, without suspicious lesions. Sinuses: Visualized sinuses and mastoids are clear. IMPRESSION: 1. No acute intracranial pathology. No significant changes from previous study. 2. Right frontal scalp hematoma and swelling. No acute skull fracture. Reviewed by: Diego Cárdenas MD on 05/19/2024 5:17 PM PDT Approved by: Diego Cárdenas MD on 05/19/2024 5:17 PM PDT Station ID: [id number]
--- NOTE | 2024-05-19 17:21 | CT Report ---
PROCEDURE: Cervical Spine WO INDICATIONS: fall flight steps; neck/thoracic pain TECHNIQUE: Noncontrast 3 mm thick sections acquired from the skull base to the T4 level. Sagittal and coronal r eformats were then constructed. For radiation dose reduction, the following was used: automated exp osure control, adjustment of mA and/or kV according to patient size. COMPARISON: 04/27/2024. FINDINGS: Image quality: Excellent. Bones: No acute fractures or dislocations. Chronic appearing superior endplate compression deformit y at T2 level is again noted and unchanged. Visualized superior ribs are intact. Soft tissues: Prevertebral soft tissues are normal in thickness. No paravertebral hematomas. No ap ical pneumothoraces. IMPRESSION: No acute, displaced fracture or traumatic subluxation. Stable appearance of chronic appearing superior endplate compression deformity at T2 level unchanged from prior study. Reviewed by: Diego Cárdenas MD on 05/19/2024 5:20 PM PDT Approved by: Diego Cárdenas MD on 05/19/2024 5:20 PM PDT Station ID: [id number]
--- NOTE | 2024-05-19 17:39 | CT Report ---
PROCEDURE: Chest WO INDICATIONS: fall with neck/throacic pain TECHNIQUE: A CT scan of the chest was performed. Intravenous contrast media was not administered. Images were re corded and evaluated at appropriate window settings. Reformats: axial MIP of the chest, coronal and s agittal. For radiation dose reduction, the following was used: automated exposure control, adjustment of mA and/or kV according to patient size. COMPARISON: Chest radiograph dated 08/10/2023 and 04/27/2024.. FINDINGS: Image quality: Diagnostic. Chest wall and lower neck: No thyroid nodule which requires sonographic follow up. No axillary or sup raclavicular adenopathy by size. Lungs and pleura: Hazy groundglass opacities are seen scattered in left upper and lower lung lobes as well as right middle and lower lobes worse on the left side. No focal consolidation. No pleural effu sions. No pneumothorax. No suspicious pulmonary nodules which require follow up. Mediastinum: Heart size is enlarged with small to moderate pericardial effusion and measures up to 1. 4 cm in thickness adjacent to left ventricle. Enlarged main pulmonary artery concerning for pulmonary vascular hypertension. No mediastinal adenopathy by size criteria. Bones: No aggressive osseous abnormality. Chronic nonunited distal right clavicular fracture is seen with well-corticated margin along fracture site. No acute displaced rib fractures. Age indeterminant anterior wedge compression deformity involving T5 vertebral body with up to 40% loss of vertebral bod y height anteriorly not definitely seen on prior studies. Although overall extent of moderate dextros coliosis of thoracic spine with apex at T5 level is not significantly changed compared to prior chest radiographs. Upper Abdomen: Please correlate with CT of abdomen and pelvis from the same day.. IMPRESSION: 1. Hazy groundglass opacities scattered in bilateral mid to lower lung zone likely represent pulmonar y edema versus pneumonitis. No pleural effusion or pneumothorax. Airway is patent. 2. No displaced rib fracture. Chronic appearing mild anterior wedge compression deformity involving s uperior endplate of T2. Age-indeterminate superior endplate compression deformity at T5 level with up to 40% loss of T5 vertebral body height. These have the appearance of chronic compression with moder ate kyphosis of upper thoracic spine centered at T5 level which was also seen on prior study. No defi nite acute vertebral body compression fracture. 3. No mediastinal hematoma. No mediastinal lymphadenopathy. Small to moderate pericardial effusion an d cardiomegaly. Moderate atherosclerotic disease. Prominent size of the main pulmonary artery concern ing for pulmonary vascular hypertension. 4. Old nonunited distal right clavicular fracture near AC joint. Reviewed by: Diego Cárdenas MD on 05/19/2024 5:38 PM PDT Approved by: Diego Cárdenas MD on 05/19/2024 5:38 PM PDT Station ID: [id number]
--- NOTE | 2024-05-19 17:52 | CT Report ---
PROCEDURE: Abdomen/Pelvis WO INDICATIONS: fall down flight steps; lumbar pain TECHNIQUE: A CT scan of the abdomen and pelvis was performed without the use of intravenous contrast. Images we re recorded and evaluated at appropriate window settings. Reformats: coronal and sagittal. For radiat ion dose reduction, the following was used: automated exposure control, adjustment of mA and/or kV ac cording to patient size. COMPARISON: 04/09/2014. FINDINGS: Image quality: Diagnostic. Lower chest: Please correlate with CT chest findings from the same date. Liver: No contour-deforming mass. Gallbladder: Gallbladder is not visualized. Biliary tree: No intrahepatic or extrahepatic dilation, accounting for age. Spleen: No splenomegaly. Pancreas: No pancreatic ductal dilation. Adrenals: No adrenal nodule. Kidneys and ureters: No hydronephrosis. No contour-deforming mass. Stomach, bowel and peritoneum: There is no evidence of bowel obstruction. Mild fecal stasis in the co laureano is seen. No gross abnormal bowel wall thickening. No abscess collection. No free fluid of free ai r. Mild diverticulosis is seen without CT evidence of acute diverticulitis. Lymph nodes: No gross central or retroperitoneal adenopathy. Evaluation is limited due to lack of IV contrast. Vessels: No infrarenal aortic aneurysm. Reproductive organs: Unremarkable. Bladder: Bladder wall thickness is normal, accounting for underdistention. No calcified bladder stone s. Pelvic lymph nodes: No adenopathy by size criteria. Bones: No aggressive osseous abnormality. Fractured right transverse process of L3 vertebral body is seen. No acute pelvic or hip fracture. No acute vertebral body compression fracture in lower thoracic and lumbar spine. Other: Asymmetrically enlarged left oblique muscle is noted concerning for intramuscular hematoma The re is suggestion of fluid collection in right inguinal region measures 4.8 x 3.2 cm in size and 17 Ho unsfield unit in density. Series 4 image 125. Generalized anasarca is seen. IMPRESSION: 1. Limited evaluation due to lack of contrast opacification. 2. Slightly displaced fracture involving right transverse process of L3. No acute vertebral body comp ression fracture in lower thoracic and lumbar spine. 3. Suggestion of moderate sized intramuscular hematoma involving left oblique muscle. 4. Simple appearing fluid collection within right inguinal region measures 4.8 x 3.2 cm in size and 1 7 Hounsfield unit in density which could represent fluid within a inguinal hernia, suggest clinical c orrelation. 5. Generalized anasarca. No gross peritoneal free fluid of free air. Reviewed by: Diego Cárdenas MD on 05/19/2024 5:51 PM PDT Approved by: Diego Cárdenas MD on 05/19/2024 5:51 PM PDT Station ID: [id number]
[2024-05-19] MEDS: HYDROcod/ACET 5/325 Prepack 4 PO STA (19:07)
[2024-05-19] MEDS: KETOROLAC 15 MG/ML VIAL IVP STA (19:11)
[2024-05-19] MEDS: HYDROmorphone 0.5 MG/0.5 ML SYRINGE IVP STA (19:11)
[2024-05-19 19:50] VITALS: BP 131/77; O2SAT 99
== END 2024-05-19 19:59 | disposition home or self-care (01) ==
LOC: EDUNIT# → ED 15:01
DX: S30.0XXA Contusion of lower back and pelvis, initial encounter (principal); S00.03XA Contusion of scalp, initial encounter; S32.039A Unspecified fracture of third lumbar vertebra, initial encounter for closed fracture; W10.9XXA Fall (on) (from) unspecified stairs and steps, initial encounter; Y92.009 Unspecified place in unspecified non-institutional (private) residence as the place of occurrence of the external cause; N28.9 Disorder of kidney and ureter, unspecified; Z66 Do not resuscitate
CPT/HCPCS: 36415; 70450; 71250; 72125; 74176; 80053; 83690; 83735; 85025; 96374; 96375; 99284; J1170

== ENCOUNTER 2024-05-28 13:25 | Emergency (ER) | payer MEDICARE ==
--- NOTE | 2024-05-28 14:28 | ED Physician Documentation ---
History of Present Illness - Stated complaint Stated Complaint: GLFS,LT SIDE PX - Chief complaint Chief Complaint: Ext Problem - Additonal information Additional information: 84-year-old female with advanced dementia history of CHF, hypertension hypercholesterolemia, heart murmur presents emergency department for left arm swelling. Patient's said that she fell off of a lifting stool yesterday onto her left side she did hit her head no loss of consciousness she is not any blood thinners. is concerned because her left forearm is quite swollen today and patient will occasionally point at her arm and wince. Patient is u nable to provide any history for me patient's says that she has not been having any nausea or vomiting. PD PAST MEDICAL HISTORY - Past Medical History Cardiovascular: Congestive heart failure, Hypertension, High cholesterol, Murmur, Valve disorder, Other Respiratory: None Neuro: Alzhiemer's, Dementia Endocrine/Autoimmune: HyPOthyroidism GI: None, Other SLUBBER RUNNER: None : Other HEENT: Glaucoma, Other Psych: None Musculoskeletal: Osteoarthritis Derm: Herpes zoster - Past Surgical History Past Surgical History: Yes General: Other Ortho: Other HEENT: Cataracts Derm: Other - Present Medications Home Medications: Ambulatory Orders Medication Instructions Recorded Confirmed Atorvastatin [Lipitor] 20 mg PO DAILY 04/09/14 04/27/24 Brimonidine 0.2% Ophth Drops 1 drops EACHEYE BID 08/10/23 04/27/24 [Alphagan P 0.2% Ophth Drops] Latanoprost 0.005% Ophth Drops 1 drops EACHEYE QPM 08/10/23 04/27/24 [Xalatan Ophth Drops] Levothyroxine Sodium [Synthroid] 112 mcg PO QDAC 08/10/23 04/27/24 Quetiapine Fumarate [Seroquel] 75 mg PO QPM 08/10/23 04/27/24 Furosemide [Lasix] 20 mg PO DAILY #30 tablet 08/11/23 04/27/24 Metoprolol Succinate [Toprol Xl] 12.5 mg PO BID #30 tab 08/11/23 04/27/24 Aspirin/Acetaminophen/Caffeine 1 each PO DAILY PRN 04/27/24 04/27/24 [Gnp Headache [id number] Cplt] Calcium Carbonate [Calcium] 600 mg PO BID 04/27/24 04/27/24 Cholecalciferol [Vitamin D3] 25 mcg PO DAILY 04/27/24 04/27/24 Potassium Chloride [Klor-Con 10] 20 meq PO DAILY 04/27/24 04/27/24 QUEtiapine [SEROquel] 37.5 mg PO DAILY 04/27/24 04/27/24 Timolol Maleate/Pf [Timolol 1 drops EACHEYE DAILY 04/27/24 04/27/24 Maleate 0.5% Eye Drop] amLODIPine [Norvasc] 5 mg PO DAILY 04/27/24 04/27/24 Acetaminophen [Acetaminophen Extra 500 mg PO QID PRN #50 tablet 05/19/24 Strength] HYDROcod/ACETAM 5/325 [[place] 5/325] 1 ea PO Q6H PRN #14 tablet 05/19/24 - Allergies Allergies/Adverse Reactions: Allergies Allergy/AdvReac Type Severity Reaction Status Date / Time Penicillins Allergy Rash Verified 05/28/24 13:35 Sulfa (Sulfonamide Allergy Cramps Verified 05/28/24 13:35 Antibiotics) - Social History Does the pt smoke?: No Smoking Status: Never smoker Does the pt drink ETOH?: No Does the pt have substance abuse?: No - Immunizations Immunizations are current?: Yes - POLST Patient has POLST: No POLST Status: DNR (Per , they have a DNR document at home) PD ED PE NORMAL - Vitals Vital signs reviewed: Yes - General General: No acute distress, Other (advanced dementia) - HEENT HEENT: PERRL, EOMI, Moist mucous membranes - Neck Neck: Other (chronic deformity of neck.) - Cardiac Cardiac: RRR - Respiratory Respiratory: No respiratory distress - Abdomen Abdomen: Normal bowel sounds, Soft - Back Back: No CVA TTP, No spinal TTP - Derm Derm: Other (left forearm swelling and superficial abrasion) - Extremities Extremities: Other (LUE: swelling, tenderness over forearm with edema and bruising, full ROM, no elbow or wrist tenderness) - Neuro Eye Opening: Spontaneous Motor: Obeys Commands Verbal: Confused GCS Score: 14 Results - Vitals Vitals: Vital Signs - 24 hr 05/28/24 05/28/24 13:35 16:59 Temperature 36.5 C Heart Rate 50 L 56 L Respiratory 14 18 Rate Blood Pressure 105/70 109/76 O2 Saturation 100 97 Oxygen O2 Source Room air - Rads (name of study) Cervical spine without Relevant Findings:: Final report received, EMP independent interpretation of test, Other (Stable T2 compression deformity, T5 compression deformity appears to be chronic) Head CT without Relevant Findings:: Final report received, EMP independent interpretation of test, Other (No acute intracranial abnormalities or findings, small right frontal scalp hematoma minor atrophy and chronic microvascular ischemic changes) Left forearm x-rays Relevant Findings:: Final report received, EMP independent interpretation of test, Other (Significant soft tissue swelling most likely due to underlying hematoma with no obvious fractures) PD Medical Decision Making - ED course ED course: 84-year-old female presents emergency department for left upper extremity swelling after a fall from raise stool. Patient's reports that she did hit her head but she had no loss of consciousness and she is not on any blood thinners. Patient has very advanced dementia she is unable to contribute any history she does not complain of any pain but has been reports that she occasionally grabs her left arm and winces. Head CT was complete for further evaluation of possible intracranial hemorrhage or abnormality and no acute abnormalities are visualized normal head CT she also had a cervical spine CT which showed only chronic abnormalities including stable T2 compression deformity as well as T5 compression deformity. X-rays of left forearm were also completed for further evaluation and given how significant the swelling is and is difficult to visualize the distal radius. Compartments are soft making me less suspicious or concern for possible compartment syndrome, x-rays do not show any obvious fractures but patient's was informed that she would benefit from having repeat imaging in a couple weeks as the swelling comes down. Raymon wrap was placed over the left forearm for hematoma and bacitracin and nonadhesive dressing was placed over the left forearm abrasion. Patient's hu prachiand was told to follow-up with primary care provider for outpatient imaging in 10 to 12 days. At this point time believe that patient is safe for discharge he is taught how to manage wound and Raymon wrap of left forearm at home all questions answered return precautions given. Departure - Departure Disposition: 01 Home, Self Care Clinical Impression: Hematoma of arm, Fall from stool, Arm abrasion Instructions: ED Hematoma Comments: Thank you for trusting us with your care. We have completed x-rays of your 's left arm and we are not seeing any acute fractures at this point in time although we did discuss there is quite a bit of swelling so your may benefit from repeat x-rays in about 10 to 12 days. In regards to the laceration on her forearm make sure that you are changing the dressing every day applying a new nonadhesive dressing with bacitracin over the wound to help with recovery and healing. We have placed an Raymon wrap of your 's left arm to help with swelling and hematoma make sure that you remove this every day evaluate the skin under the Raymon wrap and apply it back on if it is supportive and helpful to your 's pain. Make sure that you do not put it on too tight as it can cut off circulation quite easily. Please follow-up with your primary care provider for further evaluation and management please come back to the ER if you are having any concerning symptoms of her neurological status or any other concerning emergent symptoms Or signs and symptoms of infection of that left arm which include redness, swelling, drainage that is yellow or green, or fevers and chills. Forms: PCP List Discharge Date/Time: 05/28/24 16:59
--- NOTE | 2024-05-28 16:09 | XRAY Report ---
PROCEDURE: Forearm LT INDICATIONS: L arm swelling after fall TECHNIQUE: 2 views of the forearm were acquired. COMPARISON: None. FINDINGS: Bones: Poorly visualized distal radius secondary to overlying soft tissue shadows. No suspicious bony lesions. Soft tissues: Prominent edema/soft tissue prominence is present within the extremity at the level of the elbow and distal. IMPRESSION: Significant soft tissue prominence likely related to inflammation. Underlying hematoma should be cons idered. No discretely visualized fracture at the elbow. Distal radius is poorly characterized secondary to overlying soft tissue artifact. If point tendernes s is present, wrist x-ray is recommended. Reviewed by: Radha Ortega MD on 05/28/2024 4:07 PM PDT Approved by: Radha Ortega MD on 05/28/2024 4:07 PM PDT Station ID: [id number]
--- NOTE | 2024-05-28 16:18 | CT Report ---
PROCEDURE: Head WO INDICATIONS: fall from stool TECHNIQUE: Noncontrast 4.5 mm thick angled axial sections acquired from the foramen magnum to the vertex. For r adiation dose reduction, the following was used: automated exposure control, adjustment of mA and/or kV according to patient size. COMPARISON: None. FINDINGS: Image quality: Excellent. The ventricular system and cortical sulci demonstrate atrophy, consistent for patient's stated age. There are areas of hypodensity in the periventricular and subcortical white matter. There is no acut e intra or extra-axial fluid collection. No acute hemorrhage, mass lesion or midline shift. Brainst em is unremarkable. Globes are symmetrical. Sinuses are aerated. Osseous structures are intact. Small right frontal scalp hematoma. IMPRESSION: 1. No acute intracranial process. Small right frontal scalp hematoma. 2. Moderate atrophy and chronic microvascular ischemic changes. Reviewed by: Radha Ortega MD on 05/28/2024 4:16 PM PDT Approved by: Radha Ortega MD on 05/28/2024 4:16 PM PDT Station ID: [id number]
--- NOTE | 2024-05-28 16:21 | CT Report ---
PROCEDURE: Cervical Spine WO INDICATIONS: fall from stool TECHNIQUE: Noncontrast 3 mm thick sections acquired from the skull base to the T4 level. Sagittal and coronal r eformats were then constructed. For radiation dose reduction, the following was used: automated exp osure control, adjustment of mA and/or kV according to patient size. COMPARISON: CT head 05/28/2024, CT cervical spine 05/19/2024, CT cervical spine 04/27/2024 FINDINGS: Image quality: Excellent. Bones: No acute fractures or dislocations. Unchanged superior endplate deformity at T2. T5 compressi on fracture is present.. This area is not included within the [id number] on prior exams. Visualize d superior ribs are intact. Soft tissues: Prevertebral soft tissues are normal in thickness. No paravertebral hematomas. No ap ical pneumothoraces. IMPRESSION: Stable T2 compression deformity. T5 compression deformity of indeterminate age. No priors are available for comparison. Recommend adrienne elation point tenderness. Reviewed by: Radha Ortega MD on 05/28/2024 4:20 PM PDT Approved by: Radha Ortega MD on 05/28/2024 4:20 PM PDT Station ID: [id number]
[2024-05-28] MEDS: BACITRACIN ZINC OINT 1 PACKET TOP STA (16:59)
[2024-05-28 17:02] VITALS: BP 109/76; O2SAT 97
== END 2024-05-28 16:59 | disposition home or self-care (01) ==
LOC: ED 13:25
DX: S50.12XA Contusion of left forearm, initial encounter (principal); S50.812A Abrasion of left forearm, initial encounter; W07.XXXA Fall from chair, initial encounter; I11.0 Hypertensive heart disease with heart failure; I50.9 Heart failure, unspecified; E78.00 Pure hypercholesterolemia, unspecified; F03.90 Unspecified dementia, unspecified severity, without behavioral disturbance, psychotic disturbance, mood disturbance, and anxiety; E03.9 Hypothyroidism, unspecified; Z79.82 Long term (current) use of aspirin; Z79.899 Other long term (current) drug therapy; Z66 Do not resuscitate
CPT/HCPCS: 70450; 72125; 73090; 99283; 99284; A9270